=== PATIENT | male | born 1945 | race Caucasian/White ===

== ENCOUNTER → 2023-08-13 10:01 | Outpatient (REF) | payer BC, SELFPAY | LOC: RAD 10:01 | PROVIDERS: ATTENDING PHYSICIAN Family Medicine; FAMILY PHYSICIAN Family Medicine | DX: R07.81 Pleurodynia (principal); R50.9 Fever, unspecified | CPT/HCPCS: 71046 ==

== ENCOUNTER 2024-10-19 15:02 | Inpatient (IN) | payer OTHER, SELFPAY ==
[2024-10-19] VITALS (14 sets, daily range): BP systolic 93–127; BP diastolic 54–79; BMI 23.9; BMI 23.1
[2024-10-19 10:42] LABS: Hematocrit 32.9 % (39.0-52.0); Hemoglobin 11.5 g/dL (13.0-18.0); Mean Corp Hgb Conc. 35.0 g/dL (33.0-37.0); Mean Corpuscular Volume 86.1 fL (80.0-94.0); Platelet Count 156 10^3/uL (130-400); Red Cell Dist. Width 12.9 % (11.5-14.5)
[2024-10-19 11:10] LABS: ALT (SGPT) 23 U/L (0-50); AST (SGOT) 20 U/L (17-59); Albumin 3.1 g/dl (3.5-5.0); Alkaline Phosphatase 70 U/L (38-126); Blood Urea Nitrogen 17 mg/dl (9-20); Calcium 8.5 mg/dl (8.4-10.2); Carbon Dioxide 22 mmol/L (22-30); Chloride 107 mmol/L (98-107); Estimated Creatinine Clearance 47 ml/min; Glucose 119 mg/dl (70-99); Potassium 3.6 mmol/L (3.5-5.1); Sodium 135 mmol/L (135-145); Total Protein 6.0 g/dl (6.3-8.2); eGFR 55.53
--- NOTE | 2024-10-19 11:17 | ED.GENMED ---
History of Present Illness
General
Chief Complaint: Blood Pressure Problem
Source: patient
Exam Limitations: altered mental status
Time Seen by Provider: 10/19/24 10:29
Nursing documentation reviewed up to this point in time: agreed with
History of Present Illness
History of Present Illness:
79-year-old male with dementia presents with low blood pressure near syncope x 2 days being treated for a UTI apparently got Seroquel my evaluation blood pressure is a little bit soft he is sleepy but cooperative
12 noon, discussed with and daughter are his primary caregivers patient has advanced dementia, prior head injury has been falling a lot lately, concern for UTIs had 3 doses of Cipro they requested patient be admitted
Past History
Past History
ED Past Medical History: HTN and Other (Prior fall with head injury. Dementia)
ED Past Surgical History: Orthopedic and Other (Glaucoma surgery. Posttraumatic surgery)
Social History
Tobacco: Former smoker
Alcohol: None
Drug: None
Personal:
Living: with family
Employment: Retired
Family History
Family History: Other (Noncontributory)
Review of Systems
Review of Systems
Unable to obtain full review of systems at this time due to: dementia
All Other Systems: Not applicable
Phy Exam
Physical Exam
Physical Exam:
Physical Exam
General: Demented opens eyes to voice follows very simple commands
Neck: No jaundice lips are more
Heart: Regular
Lungs: no acute respiratory distress. clear bilaterally
Abdomen: Nontender
Neuro: Demented globally weak
Skin: no rash
Psychiatric: Flat affect
Extremities: no edema.
Course
Orders/Labs/Results
Orders:
Orders
10/19/24 10:34
EKG [Electrocardiogram (*1)] Urgent
Reason for Study: Syncope
10/19/24 10:35
EKG- Treatment ONCE
Complete Blood Count/No Diff Urgent
Comprehensive Metabolic Panel Urgent
10/19/24 11:55
Straight cath- Treatment ONCE
Urinalysis Reflex To Culture Urgent
Abnormal Lab Results
10/19/24
10:35
RBC 3.82 L 10^6/uL
(4.70-6.10)
Hgb 11.5 L g/dL
(13.0-18.0)
Hct 32.9 L %
(39.0-52.0)
Glucose 119 H mg/dl
(70-99)
Total Protein 6.0 L g/dl
(6.3-8.2)
Albumin 3.1 L g/dl
(3.5-5.0)
10/19/24 10:35
10/19/24 10:35
Vital Signs
Initial and Last Documented VS:
Initial Vital Signs
Temp Pulse Resp BP Pulse Ox
97.4 F 69 20 93/54 93
10/19/24 10:26 10/19/24 10:26 10/19/24 10:26 10/19/24 10:26 10/19/24 10:26
Last Documented Vital Signs
Temp Pulse Resp BP Pulse Ox
97.4 F 68 21 96/59 93
10/19/24 10:26 10/19/24 11:00 10/19/24 11:00 10/19/24 11:00 10/19/24 11:19
MDM/Problems Addressed
Differential Diagnosis Includes:
Infection medication effect UTI dementia
MDM/Problems Addressed:
Weakness
Chronic conditions affecting care: Neurological disorder and Psychiatric illness
Acute Exacerbation and/or Progression of Chronic Illness: Neurological disorder and Psychiatric illness
*Pulse Oximetry
SaO2: 93
Oxygen Mode of Delivery: Room air
Patient hypoxic: no
*Critical Care Note
Total Time (30-74mins, 75-104mins- exclusive of procedures): Not Applicable
ED Attending Note
-
Portions of this chart may have been created with voice recognition software.� Occasional wrong word or��sound alike� substitutions may have occurred due to the inherent limitations of voice recognition software.
Discharge Plan
Departure
Prescriptions:
No Action
quetiapine 25 mg tablet
25 mg PO HS
latanoprost 0.005 % drops
1 drp RIGHT EYE HS
lisinopril 10 mg tablet
10 mg PO DAILY
timolol maleate 0.5 % drops
1 drp RIGHT EYE BID
Besivance 0.6 % Drops,Suspension
1 drp RIGHT EYE TID
Prolensa 0.07 % Drops
1 drp RIGHT EYE DAILY@1200
Lotemax SM 0.38 % Drops,Gel
1 drp RIGHT EYE TID
Referrals:
Tomy Brumfield MD [Family Provider, Family Practice]
Interventions
Interventions:
*Risk Screen - Suicide Last Done: 10/19/24 10:26
*General Assessment Last Done: 10/19/24 10:26
*Neglect/Abuse Screening Last Done: 10/19/24 10:26
*ED- Fall Risk Assessment Last Done: 10/19/24 10:26
*ED COVID-19 Vaccine History Last Done: 10/19/24 10:26
ED- Cardiac Assessment Last Done: 10/19/24 11:05
ED- Pulmonary Assessment Last Done: 10/19/24 11:05
Discharge Date and Time
Print Language: KHMER
[2024-10-19] MEDS: NSS 1000 IV ×2 (12:15→21:53)
[2024-10-19 12:27] LABS: Urine Character Clear (Clear)
[2024-10-19 12:34] LABS: Urine Red Blood Cell 0-2 /HPF (0-2); Urine Squamous Cell 0-2 /LPF (Few)
--- NOTE | 2024-10-19 16:10 | HPS.HSE ---
Addendum entered and electronically signed by Mayda Santillan MD, Resident 10/26/24 14:54:
Allergies
Allergy/AdvReac Type Severity Reaction Status Date / Time
amoxicillin Allergy Rash/swelling, Verified 10/19/24 11:38
itching
Home Medications
lisinopril 10 mg tablet 10 mg PO DAILY Blood pressure 03/31/22
quetiapine 25 mg tablet 50 mg PO DAILY Mental Health/Anxiety 03/31/22
quetiapine 50 mg tablet (Seroquel) 75 mg PO BID@1200,2100 mental health 10/19/24
timolol maleate 0.5 % eye drops 1 drp RIGHT EYE DAILY Eye Condition 10/19/24
cefdinir 300 mg capsule 300 mg PO BID #6 caps 10/23/24
Addendum entered and electronically signed by Sushma Ronquillo MD 10/19/24 17:04:
I personally performed a history and physical exam of the patient and discussed management with the resident. I reviewed the resident's note and agree with the documented findings and plan of care HPI/CC.
GENERAL: well developed, well nourished, male in no apparent distress
HEENT: NC/AT
HEART: regular rate and rhythm, +S1, +S2
LUNGS : clear to auscultation bilaterally
ABDOM: soft, nontender, nondistended, + bowel sounds
EXT: no cyanosis, clubbing, or edema
NEUROLOGIC: grossly intact--apparent dementia
Altered mental status--likely from UTI (tested positive at home and started on Cipro)--worsening dementia or side effect from cipro also possible--doubt stroke as nonfocal neuro exam--stop cipro and start rocephin--await cultures although may be
negative since on abx
dementia with behaviors--daughter reports pt can become aggressive and combative--cont seroquel--PRN haldol--1:1--consider psych consult--daughter will not consider placement, will take him home when stable
Rash--On abdomen and back--unknown cause--itchy--start hydrocortisone
essential HTN--cont lisinopril
PT/OT/speech
DVT proph
code status--DNR
Original Note:
Family Physician
-
Family Physician: Tomy Brumfield
Chief Complaint
-
Altered mental status, urinary symptoms
History of Present Illness
Mr. Rob Marvin is a 79-year-old man who has a past medical history of Alzheimer's dementia hypertension TBI who was brought in by his family for altered mental status of 2 days. and daughter present, they report that at baseline he is
altered but became more altered couple of days ago. Family reports that he was unsteady with his gait and with urinate standing up instead of using the bathroom and that his urine was bright orange. Daughter used [id number] test strips to
assess whether he had a UTI which turned out positive. She called his PCP for a prescription and was given Cipro. After administration of Cipro he he started to have issues with balance and falling. This a.m. he was altered and having gait issues
causing him to buckle but not fall and did not hit his head. He was brought in by his family for this issue. He has a prior history of TBI that he recovered from completely and also has vasovagal episodes when he bears down to use the bathroom.
Family reports that he is constipated and goes about once every 2 weeks. They also report that he can get very agitated and hit his daughter. He is on Seroquel for agitation. Patient was pleasant at bedside, responding appropriately, but a little
bit cognitively slow. Family denies that he complained of chest pain shortness of breath nausea or vomiting. He does not complain of urinary issues but his urinary behaviors have changed. He has an at home nurse that comes 3 times a week for 4
hours to help him with his ADLs. In the ER CT head showed no change to prior. EKG was notable for Q waves in the inferior leads. UA showed positive leukoesterase occult blood few bacteria and 2+ albumin. altered mentation could be due to the UTI
Cipro or advancing dementia. Patient was admitted for UTI and altered mental status.
Medical History
Past Medical History
Past Medical History: Reports Other
Additional Past Medical History:
Dementia Alzheimer's type
Traumatic brain injury
Hypertension
Past Surgical History: Reports Orthopedic (Left knee replacement)
Social History
Unable to obtain full social history at this time due to: Dementia
Tobacco: Former Smoker
Alcohol: None
Drug: None
Personal:
Living: With Family
Employment: Not Employed
Family History
Family History: Not pertinent
Allergies / Home Medications
Allergies reflects when Allergies were last updated in [facility].
Home Medications with original date entered in [facility]
Allergy/Medication List:
Amoxicillin rash
Review of Systems
-
Unable to obtain full review of systems at this time due to: Dementia
History Source: Patient and Family
Constitutional: Reports No Symptoms; Denies Fever or Fatigue
EENT: Reports No Symptoms; Denies Sore Throat or Runny Nose
Respiratory: Reports No Symptoms; Denies Cough or Trouble Breathing
Cardiac: Reports No Symptoms; Denies Chest Pain, Diaphoresis or Palpitations
Abdomen/GI: Reports Constipated; Denies Abdominal Pain, Nausea or Vomiting
: Reports Flank Pain and Incontinence
Musculoskeletal: Reports No Symptoms
Neurological: Reports Weakness
Psych: Reports Dementia
Physical Exam
Vital Signs
Vital Signs
Temp Pulse Resp BP Pulse Ox
98.0 F 91 16 114/68 97
10/19/24 15:59 10/19/24 15:59 10/19/24 15:59 10/19/24 15:59 10/19/24 15:59
Physical Exam
General: Well Developed, Well Nourished, No Apparent Distress, Comfortable and Conversant (Minimally)
HEENT: NormoCephalic and Atraumatic
Respiratory: Clear; No Wheezes, Crackles or Non Labored Respirations
Cardiac: S1/S2 and Regular Rhythm
GI: Soft, Non Tender, Non Distended and Normal Bowel Sounds
Genito-urinary: No costovertebral tender
Musculoskeletal: No Clubbing
Skin: Warm and Dry
Neuro: No Motor Deficits, Nonfocal/grossly intact and No Sensory Deficits; No Oriented
Psych: Calm
Laboratory Results
-
10/19/24 10:35
10/19/24 10:35
Laboratory Results
Total Bilirubin 1.0 mg/dl (0.2-1.3) 10/19/24 10:35
AST 20 U/L (17-59) 10/19/24 10:35
ALT 23 U/L (0-50) 10/19/24 10:35
Alkaline Phosphatase 70 U/L (38-126) 10/19/24 10:35
Impression/Plan
-
IMPRESSION:
Mr. Rob Marvin is a 79-year-old man who has a past medical history of Alzheimer's dementia hypertension TBI who was brought in by his family for altered mental status of 2 days. and daughter present, they report that at baseline he is
altered but became more altered couple of days ago. Family suspected UTI and conducted a UTI test which turned out positive. She called his PCP for a prescription and was given Cipro. After administration of Cipro he he started to have issues with
balance and falling. In the ER CT head showed no change to prior. EKG was notable for Q waves in the inferior leads. UA showed positive leukoesterase occult blood few bacteria and 2+ albumin. altered mentation could be due to the UTI Cipro or
advancing dementia.
PLAN:
# Altered mental status
# UTI
# Dementia Alzheimer's type
Altered mental status may be due to progression of dementia
May also be due to underlying UTI
May also be due to side effects of Cipro
Switch patient from Cipro to Rocephin
Await cultures for sensitivity
Will consult PT OT speech
Continue home quetiapine
Haldol 0.5 as needed
# Rash
On abdomen and back
Reports its itchy
Hydrocortisone cream as needed
[2024-10-19] MEDS: STERILE WATER FOR INJECTION 10 ML IV (17:35)
[2024-10-19] MEDS: ROCEPHIN 1000 MG IV (17:35)
--- NOTE | 2024-10-19 18:05 | PTCARENOTE ---
Pt arrived to floor from ED via stretcher. Oriented to Rob, but cannot recall his last name. Unable to identify time or place. Denying pain. 1:1 observation maintained per order. Pleasant interactions. Occasionally with quickly sit up in bed and
state, 'I better be getting out of here. I need to find my .' Able to reorient of plan to stay in hospital. SaO2 97% on room air. Lungs clear. Regular rhythm. Firm abdomen. Hyperactive bowel sounds. Pt unable to recall last bowel movement. NSS
infusing @ 100ml/hr.
[2024-10-19] MEDS: HALDOL 0.5 MG IV (19:36)
--- NOTE | 2024-10-19 19:40 | PTCARENOTE ---
pt pulling at iv. trying to unplug things. getting angry wants to leave. says this is not his bed or home- multiple attempts to redirect unsuccessful. behaviors escalating- Haldol given. ekg orders placed for 10/20 and 10/21
[2024-10-19] MEDS: SEROQUEL 75 MG PO (20:14)
--- NOTE | 2024-10-20 06:17 | PTCARENOTE ---
pt has been cooperative and pleasant after Haldol. sleeps when left undisturbed but easily arousable ekg done
[2024-10-20] MEDS: NSS 1000 IV ×2 (06:52→16:32)
[2024-10-20] MEDS: ZESTRIL 10 MG PO (08:35)
[2024-10-20] MEDS: SEROQUEL 50 MG PO (08:42)
[2024-10-20 08:43] VITALS: BP 134/82
[2024-10-20] MEDS: TIMOPTIC 0.5% OPHTHALMIC SOLUTION 1 DROP RIGHT EYE (08:43)
--- NOTE | 2024-10-20 09:25 | PTOTSP ---
Speech Therapy
Presentation: Patient's speech and language appeared to be WNL during conversation. Of note, patient's voice appeared to be weak in quality but intelligible. Patient has Alzheimer's dementia which was likely a barrier to following directions/
commands and orientation.
Swallowing function: Patient was re-positioned to an upright position in bed. Patient was observed with several sips (straw) of thin liquids and bites of puree, mechanical soft and regular consistency solids in which patient appeared to tolerte all
presentations as he did not exhibit any overt clinical s/sx of aspiration. However, patient's confusion was likely a barrier to oral manipulation and mastication of harder solids (regular consistency) evidenced by prolonged oral holding and
mastication which patient eventually expelled portion of the presentation from the oral cavity.
SANFORIZING MACHINE OPERATOR observed RN administer medications whole (individually) with thin liquid in which patient seperated the bolus and held the pills on his tongue for ~3 minutes. Despite ample attempts to assist with thin liquid washes and puree presentations,
patient was unable to propel the pills posteriorly. The medication eventually dissolved and were swallowed.
Given the above information, patient's confusion was likely a barrier to his swallowing function. Recommend diet downgrade to IDDSI 5; minced and moist with thin liquids and full assistance/ supervision. Also, consider medications crushed in puree
if possible.
Recommendations:
1. Diet downgrade to IDDSI 5; minced and moist with thin liquids
2. Full assistance/ supervision with PO
3. Consider medications crushed in puree if possible
4. PO only when alert
Plan: SANFORIZING MACHINE OPERATOR will continue to follow to ensure tolerance and appropriate diet upgrade; pending hospitalization.
[2024-10-20 09:30] LABS: Hematocrit 35.3 % (39.0-52.0); Hemoglobin 12.0 g/dL (13.0-18.0); Mean Corp Hgb Conc. 34.0 g/dL (33.0-37.0); Mean Corpuscular Volume 87.6 fL (80.0-94.0); Platelet Count 184 10^3/uL (130-400); Red Cell Dist. Width 13.1 % (11.5-14.5)
[2024-10-20 09:52] LABS: Blood Urea Nitrogen 10 mg/dl (9-20); Calcium 8.6 mg/dl (8.4-10.2); Carbon Dioxide 22 mmol/L (22-30); Chloride 111 mmol/L (98-107); Estimated Creatinine Clearance 68 ml/min; Glucose 106 mg/dl (70-99); Potassium 3.8 mmol/L (3.5-5.1); Sodium 139 mmol/L (135-145); eGFR > 60.00
--- NOTE | 2024-10-20 11:18 | W.PN.HOSP.TC ---
Addendum entered and electronically signed by Sushma Ronquillo MD 10/20/24 15:33:
I saw and evaluated the patient independently. I reviewed the resident�s note and agree with findings and plan as documented by Dr. Santillan.
GENERAL: well developed, well nourished, male in no apparent distress
HEENT: NC/AT
HEART: regular rate and rhythm, +S1, +S2
LUNGS : clear to auscultation bilaterally
ABDOM: soft, nontender, nondistended, + bowel sounds
EXT: no cyanosis, clubbing, or edema
NEUROLOGIC: grossly intact--apparent dementia
SKIN: small rash on left side of abdomen
Altered mental status--likely from UTI (tested positive at home and started on Cipro) culture negative due to previous exposure of ABX--worsening dementia or side effect from cipro also possible--doubt stroke as nonfocal neuro exam--cont rocephin
dementia with behaviors--daughter reports pt can become aggressive and combative--cont seroquel--PRN haldol--1:1--consider psych consult--daughter will not consider placement, will take him home when stable
Rash--On abdomen and back--unknown cause--itchy--start hydrocortisone
essential HTN--cont lisinopril
PT/OT/speech
DVT proph
code status--DNR
possible d/c today or tomorrow
Original Note:
Today's Communication/Plan
-
Continue antibiotic treatment
Assessment / Plan
Assessment / Plan
Mr. Rob Mavrin is a 79-year-old man who has a past medical history of Alzheimer's dementia hypertension TBI who was brought in by his family for altered mental status of 2 days. and daughter present, they report that at baseline he is
altered but became more altered couple of days ago. Family suspected UTI and conducted a UTI test which turned out positive. She called his PCP for a prescription and was given Cipro. After administration of Cipro he he started to have issues with
balance and falling. In the ER CT head showed no change to prior. EKG was notable for Q waves in the inferior leads. UA showed positive leukoesterase occult blood few bacteria and 2+ albumin. altered mentation could be due to the UTI Cipro or
advancing dementia. Urine culture negative for growth.
# Altered mental status
# UTI
# Dementia Alzheimer's type
Altered mental status may be due to progression of dementia
May also be due to underlying UTI
May also be due to side effects of Cipro
Switch patient from Cipro to Rocephin
Await cultures for sensitivity
Will consult PT OT speech
Continue home quetiapine
Haldol 0.5 as needed
# Rash
On abdomen and back
Reports its itchy
Hydrocortisone cream as needed
DVT ppx
SCDs
CODE Status
DNR
Anticipated Discharge: Within 24 hours
Subjective/Interval History
-
Patient was in bed and pleasant. He was still very confused but had no issues overnight. He reported no pain anywhere. Called daughter and updated her. date of Service: October 20, 2024
Objective Data
-
Labs:
Laboratory Results
10/20/24
09:04
WBC 6.4
Hgb 12.0 L
Hct 35.3 L
Plt Count 184
Sodium 139
Potassium 3.8
Chloride 111 H
Carbon Dioxide 22
BUN 10
Creatinine 0.9
Glucose 106 H
Calcium 8.6
Vital Signs:
Vital Signs
Temp Pulse Resp BP Pulse Ox
98.1 F 53 18 134/82 96
10/20/24 08:43 10/20/24 08:43 10/20/24 08:43 10/20/24 08:43 10/20/24 08:43
I&O
10/19/24 10/20/24 10/21/24
06:59 06:59 06:59
Intake Total 1560 / 1560
Output Total 800 / 800
Balance 760 / 760
Review of Systems
-
Unable to obtain full review of systems at this time due to: Dementia
History Source: Patient
All other systems: Reviewed and negative
Constitutional: Reports No Symptoms; Denies Fever
Respiratory: Reports No Symptoms; Denies Cough or Trouble Breathing
Cardiac: Reports No Symptoms; Denies Chest Pain or Palpitations
Abdomen/GI: Reports No Symptoms; Denies Abdominal Pain, Nausea or Vomiting
Genitourinary: Reports No Symptoms
Musculoskeletal: Reports No Symptoms
Physical Exam
-
General: Well Developed, Well Nourished, No Apparent Distress and Comfortable
HEENT: Normocephalic and Atraumatic
Respiratory: Clear to Auscultation; Negative Wheezes or Crackles
Cardiac: Regular Rhythm and S1/S2; Negative Murmur
GI: Soft, Nontender and Nondistended
Musculoskeletal: No Cyanosis and No Edema
Skin: Warm and Dry
Neuro: Negative Oriented (patient oriented to self) or AO x 3
Psych: Calm and Confused; Negative Agitated
[2024-10-20] MEDS: SEROQUEL 75 MG PO ×2 (12:03→20:40)
--- NOTE | 2024-10-20 12:50 | CM ---
Patient seen at bedside on . Patient daughter and reviewed with CM living arrangements. Patient daughter stated that she and her mother were the primary caregivers for the father. Patient lives with her and mother in a one story home.
there are steps to the backyard and pool area but primary bedroom is one floor. Patient uses the [facility], daughter requested [facility] be primary pharmacy. Patient has helpers 3 days a week for 4 hours a day. Patient PCP
is Dr. Lui. Patient daughter and plan is for patient to go home with family and primary caregivers. CM will continue to follow for discharge needs.
Plan; home with [facility] if accepted/recommended vs home with no needs/aides as previously arranged.
[2024-10-20 13:11] VITALS: BP 153/88; BP 158/84; PULSE 68
[2024-10-20 13:25] VITALS: BP 153/88; PULSE 79; O2SAT 92
--- NOTE | 2024-10-20 15:26 | PTCARENOTE ---
patient very confused and attempt made to reorient patient but unsuccessful, poor Po intake, encouraged Po's. can be impulsive with attempts to transfer oob by self. 1:1 maintained, vss, will continue to monitor.
[2024-10-20 15:30] VITALS: BP 142/85
--- NOTE | 2024-10-20 16:23 | W.PN.UPDATE ---
Update Note
Progress Note Update
Talked with daughter on the phone for 10minutes . She reports that she was here earlier and her dad is not at baseline. He appeared more calm to her and still altered compared to his more active/agitated baseline. Informed her that he has been
stable and his urine cultures came back negative and he has been tolerating antibiotics well. Patient's daughter open to discharge tomorrow.
[2024-10-20] MEDS: STERILE WATER FOR INJECTION 10 ML IV (17:47)
[2024-10-20] MEDS: ROCEPHIN 1000 MG IV (17:47)
--- NOTE | 2024-10-20 18:25 | PTCARENOTE ---
pt ate some vanilla pudding
[2024-10-20 23:00] VITALS: BP 138/83
[2024-10-21] MEDS: NSS 1000 IV (02:58)
[2024-10-21 05:51] LABS: Hematocrit 35.6 % (39.0-52.0); Hemoglobin 12.2 g/dL (13.0-18.0); Mean Corp Hgb Conc. 34.3 g/dL (33.0-37.0); Mean Corpuscular Volume 86.6 fL (80.0-94.0); Platelet Count 205 10^3/uL (130-400); Red Cell Dist. Width 12.8 % (11.5-14.5)
[2024-10-21 06:13] LABS: Blood Urea Nitrogen 9 mg/dl (9-20); Calcium 8.6 mg/dl (8.4-10.2); Carbon Dioxide 21 mmol/L (22-30); Chloride 109 mmol/L (98-107); Estimated Creatinine Clearance 76 ml/min; Glucose 101 mg/dl (70-99); Potassium 4.2 mmol/L (3.5-5.1); Sodium 138 mmol/L (135-145); eGFR > 60.00
[2024-10-21 06:58] VITALS: BP 137/82
[2024-10-21 07:11] VITALS: BP 137/82
[2024-10-21] MEDS: ZESTRIL 10 MG PO (09:10)
[2024-10-21] MEDS: SEROQUEL 50 MG PO ×2 (09:10→21:46)
[2024-10-21] MEDS: TIMOPTIC 0.5% OPHTHALMIC SOLUTION 1 DROP RIGHT EYE (09:11)
--- NOTE | 2024-10-21 09:32 | W.PN.HOSP.TC ---
Addendum entered and electronically signed by Sushma Ronquillo MD 10/21/24 13:55:
I saw and evaluated the patient independently. I reviewed the resident�s note and agree with findings and plan as documented by Dr. Santillan.
GENERAL: well developed, well nourished, male in no apparent distress--sleepy
HEENT: NC/AT
HEART: regular rate and rhythm, +S1, +S2
LUNGS : clear to auscultation bilaterally
ABDOM: soft, nontender, nondistended, + bowel sounds
EXT: no cyanosis, clubbing, or edema
NEUROLOGIC: grossly intact--apparent dementia
SKIN: small rash on left side of abdomen
Altered mental status--likely from UTI (tested positive at home and started on Cipro) culture negative due to previous exposure of ABX--worsening dementia or side effect from cipro also possible--doubt stroke as nonfocal neuro exam, head CT
neg--cont rocephin
dementia with behaviors--daughter reports pt can become aggressive and combative--cont seroquel (would try to keep timing of dosing as close to home dosing as possible) --PRN haldol (hasn't had any since Tuesday)--d/c 1:1, d/c IVF--daughter will not
consider placement, will take him home when stable
Rash--On abdomen and back--unknown cause--itchy--start hydrocortisone
essential HTN--cont lisinopril
PT/OT/speech
DVT proph
code status--DNR
possible d/c today or tomorrow--daughter concerned he is too calm for d/c
Original Note:
Today's Communication/Plan
-
Spoke with daughter, patient medically stable for discharge
transition to PO antibiotics
Assessment / Plan
Assessment / Plan
Mr. Rob Marvin is a 79-year-old man who has a past medical history of Alzheimer's dementia hypertension TBI who was brought in by his family for altered mental status of 2 days. and daughter present, they report that at baseline he is
altered but became more altered couple of days ago. Family suspected UTI and conducted a UTI test which turned out positive. She called his PCP for a prescription and was given Cipro. After administration of Cipro he he started to have issues with
balance and falling. In the ER CT head showed no change to prior. EKG was notable for Q waves in the inferior leads. UA showed positive leukoesterase occult blood few bacteria and 2+ albumin. altered mentation could be due to the UTI Cipro or
advancing dementia. Urine culture negative for growth.
# Altered mental status
# UTI
# Dementia Alzheimer's type
Altered mental status may be due to progression of dementia
May also be due to underlying UTI
May also be due to side effects of Cipro
Switch patient from Cipro to Rocephin
Urine culture is negative
consult PT OT speech
Continue home quetiapine
Haldol 0.5 as needed
Transition IV antibiotics to oral finish 7-day course
Keflex 500mg BID
# Rash
On abdomen and back
Reports its itchy
Hydrocortisone cream as needed
DVT ppx
SCDs
CODE Status
DNR
Anticipated Discharge: Today
Subjective/Interval History
-
Patient was in bed sleepy. He was still very confused but had no issues overnight. He reported no pain anywhere. Date of Service: October 21, 2024
Objective Data
-
Labs:
Laboratory Results
10/21/24
05:06
WBC 6.9
Hgb 12.2 L
Hct 35.6 L
Plt Count 205
Sodium 138
Potassium 4.2
Chloride 109 H
Carbon Dioxide 21 L
BUN 9
Creatinine 0.8
Glucose 101 H
Calcium 8.6
Vital Signs:
Vital Signs
Temp Pulse Resp BP Pulse Ox
98.2 F 99 20 137/82 96
10/21/24 07:11 10/21/24 09:10 10/21/24 07:11 10/21/24 09:10 10/21/24 07:11
I&O
10/20/24 10/21/24 10/22/24
06:59 06:59 06:59
Intake Total 1560 / 1560 850 / 850
Output Total 800 / 800 900 / 900
Balance 760 / 760 -50 / -50
Review of Systems
-
Unable to obtain full review of systems at this time due to: Dementia
History Source: Patient
All other systems: Reviewed and negative
Constitutional: Reports No Symptoms; Denies Fever
EENT: Reports No Symptoms Reported; Denies Sore Throat
Respiratory: Reports No Symptoms; Denies Cough or Trouble Breathing
Cardiac: Reports No Symptoms; Denies Chest Pain or Palpitations
Abdomen/GI: Reports No Symptoms; Denies Abdominal Pain, Nausea, Vomiting or Diarrhea
Genitourinary: Denies No Symptoms or Dysuria
Musculoskeletal: Reports No Symptoms
Skin: Reports No Symptoms
Physical Exam
-
General: Well Developed, Well Nourished, No Apparent Distress and Comfortable
HEENT: Normocephalic and Atraumatic
Respiratory: Clear to Auscultation; Negative Wheezes or Crackles
Cardiac: Regular Rhythm and S1/S2; Negative Murmur
GI: Soft, Nontender, Nondistended and Normal Bowel Sounds
Musculoskeletal: No Clubbing, No Cyanosis and No Edema
Skin: Warm and Dry
Neuro: Awake and Alert; Negative Oriented
Psych: Calm and Confused; Negative Agitated
--- NOTE | 2024-10-21 12:30 | CM ---
CM following re: discharge planning.
Reviewed pt's chart, met with pt and spoke to pt's daughter Esperanza over the phone.
Discharge order noted. pt's daughter is aware, expressed her agreement with discharge and she stated she is coming top transport pt home.
IMM reviewed, placed on chart, pt has a copy.
PT and OT evaluations noted. Pt's daughter is aware, expressed er agreement. [facility]N choice provided, daughter preferred [facility]. A referral to [facility] made.
Please fax discharge instructions to [facility] at [phone]
D/C plan: home with [facility] and family support. Daughter Esperanza to transport.
[2024-10-21] MEDS: SEROQUEL PO (13:53)
[2024-10-21 15:00] VITALS: BP 127/69
[2024-10-21] MEDS: ROCEPHIN 1000 MG IV (17:08)
[2024-10-21] MEDS: STERILE WATER FOR INJECTION 10 ML IV (17:08)
--- NOTE | 2024-10-21 17:47 | W.PN.UPDATE ---
Update Note
Progress Note Update
Discussed patient's condition with daughter at bedside. She states that he is to somnolent and nonresponsive compared to baseline. Somnolence may be due to dose of Seroquel that patient received at 9 AM. Patient's home schedule of Seroquel is at
8 AM 12 PM and 10 PM. Patient was responsive when asked questions but could not follow commands. Daughter is concerned for her ability to safely supervise him and is worried that he might fall. She is open to placement in rehab if an appropriate
candidate. DC was planned for today but will be reevaluated for DC tomorrow. Informed daughter that patient is medically stable with no acute medical needs. He has been very calm and cooperative during his stay. Informed her that keeping him
hospitalized for longer without acute needs can be harmful but understand her apprehension. PT has already assessed him and they think he requires 24/7 supervision due to cognitive status and fall risk. Recommended home health services for
functional training due to daughter's initial request to have him return home. Will reach out to PT to see if he is a good rehab candidate.
--- NOTE | 2024-10-21 18:20 | PTCARENOTE ---
Family requested IVF, MD and resident made aware, new order provided, see MAR.
[2024-10-21] MEDS: D5/0.9% SODIUM CHLORIDE 1000 IV (18:29)
[2024-10-21 23:00] VITALS: BP 142/84
[2024-10-22 03:31] VITALS: BMI 23.5
[2024-10-22] MEDS: D5/0.9% SODIUM CHLORIDE 1000 IV ×2 (04:26→14:46)
[2024-10-22 07:38] VITALS: BP 152/93
[2024-10-22 07:48] LABS: Hematocrit 36.3 % (39.0-52.0); Hemoglobin 12.6 g/dL (13.0-18.0); Mean Corp Hgb Conc. 34.7 g/dL (33.0-37.0); Mean Corpuscular Volume 85.8 fL (80.0-94.0); Platelet Count 218 10^3/uL (130-400); Red Cell Dist. Width 12.8 % (11.5-14.5)
[2024-10-22 08:27] LABS: Blood Urea Nitrogen 9 mg/dl (9-20); Calcium 8.7 mg/dl (8.4-10.2); Carbon Dioxide 23 mmol/L (22-30); Chloride 110 mmol/L (98-107); Estimated Creatinine Clearance 76 ml/min; Glucose 128 mg/dl (70-99); Potassium 3.5 mmol/L (3.5-5.1); Sodium 138 mmol/L (135-145); eGFR > 60.00
--- NOTE | 2024-10-22 09:16 | W.PN.HOSP.TC ---
Addendum entered and electronically signed by Rob Aguilar DO 10/22/24 14:19:
CDI: OWEN present on arrival
Original Note:
Today's Communication/Plan
-
Seroquel dose reduced in half
9 AM dose held because patient was too somnolent yesterday around 12, needs to work with OT PT
Talked with family about placement, family amenable
Awaiting placement, medically stable for discharge
Assessment / Plan
Assessment / Plan
Mr. Rob Marvin is a 79-year-old man who has a past medical history of Alzheimer's dementia hypertension TBI who was brought in by his family for altered mental status of 2 days. and daughter present, they report that at baseline he is
altered but became more altered couple of days ago. Family suspected UTI and conducted a UTI test which turned out positive. She called his PCP for a prescription and was given Cipro. After administration of Cipro he he started to have issues with
balance and falling. In the ER CT head showed no change to prior. EKG was notable for Q waves in the inferior leads. UA showed positive leukoesterase occult blood few bacteria and 2+ albumin. altered mentation could be due to the UTI Cipro or
advancing dementia. Urine culture negative for growth. Patient was started on ceftriaxone and given IV fluids. Patient was evaluated by PT OT and speech which recommended a change in diet due to concerns for aspiration. PT recommending 08/11
supervision due to cognitive status. Patient was due to be discharged on 10/21 but was too somnolent in bed after receiving dose of Seroquel earlier in the morning. Talked with daughter and who are open to DC to rehab to help him with balance
issues if appropriate. Reached out to mental health case manager for possible rehab placement. Reduced Seroquel dose by half and patient was more alert and able to follow commands.
# Altered mental status
# UTI
# Dementia Alzheimer's type
Altered mental status may be due to progression of dementia
May also be due to underlying UTI
May also be due to side effects of Cipro
Switch patient from Cipro to Rocephin
Urine culture is negative
consult PT OT speech
Continue home quetiapine 3 times daily
Seroquel dose reduced in half.
Haldol 0.5 as needed
Transition IV antibiotics to oral finish 7-day course
Keflex 500mg BID at discharge
# Rash
On abdomen and back
Reports its itchy
Hydrocortisone cream as needed
DVT ppx
SCDs
CODE Status
DNR
Anticipated Discharge: Today
Subjective/Interval History
-
Patient was seen at bedside. He was more conversant and cooperative today after decreasing his night Seroquel. Yesterday he was somnolent in the afternoon when family came for discharge. Today he was more talkative told me about his breakfast and
was able to state that he had no pain and no concerns. Talked with family at bedside who reports that he is doing much better, they saw him work with PT and were impressed. They are happy about placement. Discussed reduction of seroquel with them.
Date of Service: October 22, 2024
Objective Data
-
Labs:
Laboratory Results
10/22/24
07:12
WBC 5.9
Hgb 12.6 L
Hct 36.3 L
Plt Count 218
Sodium 138
Potassium 3.5
Chloride 110 H
Carbon Dioxide 23
BUN 9
Creatinine 0.8
Glucose 128 H
Calcium 8.7
Vital Signs:
Vital Signs
Temp Pulse Resp BP Pulse Ox
98.2 F 91 14 152/93 95
10/21/24 23:00 10/22/24 07:38 10/22/24 07:38 10/22/24 07:38 10/21/24 23:00
I&O
10/21/24 10/22/24 10/23/24
06:59 06:59 06:59
Intake Total 850 / 850 1440 / 1440
Output Total 900 / 900 1250 / 1250
Balance -50 / -50 190 / 190
Review of Systems
-
Unable to obtain full review of systems at this time due to: Dementia
History Source: Patient
All other systems: Reviewed and negative
Constitutional: Reports No Symptoms; Denies Fever or Fatigue
EENT: Reports No Symptoms Reported; Denies Sore Throat
Respiratory: Reports No Symptoms; Denies Cough or Trouble Breathing
Cardiac: Reports No Symptoms; Denies Chest Pain or Palpitations
Abdomen/GI: Reports No Symptoms; Denies Abdominal Pain, Nausea, Vomiting or Diarrhea
Genitourinary: Reports No Symptoms; Denies Dysuria
Musculoskeletal: Reports No Symptoms; Denies Joint Pain
Skin: Reports No Symptoms; Denies Rash
Neuro: Reports No Symptoms; Denies Dizzy or Headache
Physical Exam
-
General: Well Developed, Well Nourished, No Apparent Distress and Comfortable
HEENT: Normocephalic and Atraumatic
Respiratory: Clear to Auscultation; Negative Wheezes or Crackles
Cardiac: Regular Rhythm and S1/S2; Negative Murmur
GI: Soft, Nontender, Nondistended and Normal Bowel Sounds
Musculoskeletal: No Edema and Clubbing
Skin: Warm and Dry
Neuro: Awake, Alert and No Motor Deficits; Negative Oriented or Slurred Speech
Psych: Calm and Confused; Negative Agitated
[2024-10-22 09:30] VITALS: BP 115/79; BP 140/92; PULSE 97
[2024-10-22] MEDS: ZESTRIL 10 MG PO (10:01)
[2024-10-22] MEDS: TIMOPTIC 0.5% OPHTHALMIC SOLUTION 1 DROP RIGHT EYE (10:01)
[2024-10-22 11:25] VITALS: BP 128/77; PULSE 82
[2024-10-22] MEDS: SEROQUEL 50 MG PO ×2 (12:21→21:16)
--- NOTE | 2024-10-22 14:09 | PN.CDI ---
CDI
- -
CDI:
Physician Documentation Request
Admit Date: 10/19/24 15:02
Dear Doctor Jeff/Resident,
Please review the following and provide your response in the progress notes.
Clinical Indicators:
Pt admitted with UTI/Metabolic encephalopathy/Dementia with possible progression
Renal functions are as below/ Pt did get IVFs
10/19/24 10/20/24 10/21/24
10:35 09:04 05:06
Creatinine 1.3 0.9 0.8
10/22/24
07:12
Creatinine 0.8
Clarify which of the following accurately represents the patient's renal status:
OWEN
Abnormal lab value
Other ( please specify)
Criteria for OWEN*
1 Increase in serum creatinine by > or = to 0.3 mg/dL (> or = to 26.5 micromol/L) within 48 hours, OR
2 Increase in serum creatinine to > or = to 1.5 times baseline, which is known or presumed to have occurred within 7 days, OR
3 Urine volume < 0.5 nL/kg/hour for six hours
Use of terms such as suspected, likely, concern for, or probable (associated with a specific diagnosis that is being evaluated, monitored, or treated as if it exists) are acceptable and can be coded in the inpatient setting, when documented at the
time of discharge.
Thank you,
Saima Kruger RN
CDI Specialist
[facility] [employer]
Please use your independent medical judgment in providing your response.
*Source: Kidney Disease: Improving Global Outcomes (KDIGO) 2012
--- NOTE | 2024-10-22 14:17 | CM ---
Addendum entered by Gudelia Parrish 10/22/24 17:24:
Marylu from ins called with approval for [facility]
APPROVAL REF #: [id number]
Start date 10/23/24
NRD 10/29/24 call for verbal review at [phone]
Left message with Keli at [facility] with approval information
Left message with daughter Esperanza
tt hospitalist
PLAN: [facility] 10/23/24
Report #: [phone]
Fax #: [phone]
Addendum entered by Gudelia Parrish 10/22/24 14:48:
Spoke with Marylu at [phone]
start date for tomorrow 10/23
PENDING reference #:[id number]
Marylu states this will go to [employer] & will get back to CM once approved for [facility]
PLAN: [facility], Pending insurance approval
Report #: [id number]
Fax #: [phone]
Original Note:
PT/OT rec SNF
updated daughter Esperanza
Referral sent to [facility] per daughter preference
Keli at [facility] able to accept patient tomorrow 10/23
CM to initiate ins auth [id number]
[facility] NPI #: [id number]
DR. BARBIE ANDERSON NPI #: [id number]
PLAN: [facility], once auth approved
--- NOTE | 2024-10-22 15:35 | PTOTSP ---
Speech Language Pathology
Pt seen for dysphagia tx. Sleeping upon arrival, but easily roused. Lunch tray at bedside untouched. Breakfast tray on windowsill, minimal consumed. P.O. trials of pureed pears, cookie brought from home, and thin liquids provided. Cognition is
main barrier in P.O. intake. Pt intermittently able to utilize straw when C[employer]OA MILL OPERATOR provided liquids in this manner. Increased success in acceptance when pt held cup on his own for sips. When COCOA MILL OPERATOR provided tsp of pureed pears, minimal acceptance with pt
initially attempting to spit out, thinking a mistake was made. Able to swallow with verbal cueing without difficulty. Provided cookie, and pt able to self-feed, taking bite with adequate mastication, bolus formation, and A-P transit. No
significant oral residue or any signs of aspiration noted.
Suspect food that looks more natural (regular solids vs pureed/minced solids) and that pt is able to feed self (such as finger foods) would be more successful and result in increased P.O. intake.
Recommend:
(1) Regular solids/thin liquids
(2) Aspiration precautions: full supervision, slow rate, ensure oral cavity clear post P.O. intake
(3) Meds as tolerated (barrier will be cognition)
(4) C[employer] MILL OPERATOR to continue to follow
[2024-10-22 15:59] VITALS: BP 147/87
[2024-10-22] MEDS: ROCEPHIN 1000 MG IV (17:57)
[2024-10-22] MEDS: STERILE WATER FOR INJECTION 10 ML IV (17:57)
[2024-10-22 23:00] VITALS: BP 114/78
[2024-10-23] MEDS: D5/0.9% SODIUM CHLORIDE 1000 IV (02:29)
[2024-10-23 06:00] VITALS: BMI 24.2
[2024-10-23 07:18] VITALS: BP 121/77
[2024-10-23] MEDS: TIMOPTIC 0.5% OPHTHALMIC SOLUTION 1 DROP RIGHT EYE (07:56)
[2024-10-23] MEDS: ZESTRIL 10 MG PO (07:56)
--- NOTE | 2024-10-23 08:42 | W.PN.HOSP.TC ---
Today's Communication/Plan
-
Patient medically stable for discharge
Assessment / Plan
Assessment / Plan
Mr. Rob Marvin is a 79-year-old man who has a past medical history of Alzheimer's dementia hypertension TBI who was brought in by his family for altered mental status of 2 days. and daughter present, they report that at baseline he is
altered but became more altered couple of days ago. Family suspected UTI and conducted a UTI test which turned out positive. She called his PCP for a prescription and was given Cipro. After administration of Cipro he he started to have issues with
balance and falling. In the ER CT head showed no change to prior. EKG was notable for Q waves in the inferior leads. UA showed positive leukoesterase occult blood few bacteria and 2+ albumin. altered mentation could be due to the UTI Cipro or
advancing dementia. Urine culture negative for growth. Patient was started on ceftriaxone and given IV fluids. Patient was evaluated by PT OT and speech which recommended a change in diet due to concerns for aspiration. PT recommending 08/11
supervision due to cognitive status. Patient was due to be discharged on 10/21 but was too somnolent in bed after receiving dose of Seroquel earlier in the morning. Talked with daughter and who are open to DC to rehab to help him with balance
issues if appropriate. Reached out to case maker for possible rehab placement. Reduced Seroquel dose by half and patient was more alert and able to follow commands. Patient medically stable for discharge to rehab.
# Altered mental status
# UTI
# Dementia Alzheimer's type
Altered mental status may be due to progression of dementia
May also be due to underlying UTI
May also be due to side effects of Cipro
Switch patient from Cipro to Rocephin
Urine culture is negative
consult PT OT speech
Continue home quetiapine 3 times daily
Seroquel dose reduced in half.
Haldol 0.5 as needed
Transition IV antibiotics to oral finish 7-day course
Keflex 500mg BID at discharge
# Rash
On abdomen and back
Reports its itchy
Hydrocortisone cream as needed
# OWEN
Previous baseline per [facility] records around 1.1
On admission creatinine 1.3 after IV fluids down trended to 0.8
DVT ppx
SCDs
CODE Status
DNR
Anticipated Discharge: Today
Subjective/Interval History
-
Patient was doing well this morning, he was awake and alert. He stated that he had no complaints, no pain urination, no chest pain, no headache, no shortness of breath. Spoke with daughter yesterday and updated her about [facility], patient was
accepted and will be discharged today. Date of Service: October 23, 2024
Objective Data
-
Vital Signs:
Vital Signs
Temp Pulse Resp BP Pulse Ox
98.4 F 77 16 121/77 96
10/23/24 07:18 10/23/24 07:56 10/23/24 07:18 10/23/24 07:56 10/23/24 07:18
I&O
10/22/24 10/23/24 10/24/24
06:59 06:59 06:59
Intake Total 1440 / 1440 1440 / 1440
Output Total 1250 / 1250 1200 / 1200
Balance 190 / 190 240 / 240
Review of Systems
-
Unable to obtain full review of systems at this time due to: Dementia
History Source: Patient
All other systems: Reviewed and negative
Constitutional: Reports No Symptoms; Denies Fever
Respiratory: Reports No Symptoms; Denies Cough or Trouble Breathing
Cardiac: Reports No Symptoms; Denies Chest Pain or Palpitations
Abdomen/GI: Reports No Symptoms; Denies Abdominal Pain, Nausea, Vomiting or Diarrhea
Genitourinary: Denies Dysuria or Flank Pain
Musculoskeletal: Reports No Symptoms
Physical Exam
-
General: Well Developed, Well Nourished, No Apparent Distress and Comfortable
HEENT: Normocephalic and Atraumatic
Respiratory: Clear to Auscultation; Negative Wheezes or Crackles
Cardiac: Regular Rhythm and S1/S2; Negative Murmur or Rub
GI: Soft, Nontender, Nondistended and Normal Bowel Sounds
Musculoskeletal: No Cyanosis, No Edema and Clubbing
Skin: Warm and Dry
Neuro: Awake and Alert
Psych: Calm and Confused
--- NOTE | 2024-10-23 10:22 | PTCARENOTE ---
pt bladder scanned @ 437mL, Dr. Aguilar notified, new order to place black catheter obtained. 16F black placed with no issues. dark orange urine draining. pt resting comfortably and tolerated procedure well.
--- NOTE | 2024-10-23 11:11 | CM ---
Addendum entered by Gudelia Parrish 10/23/24 11:16:
IMM reveiwed with daughter Esperanza & in chart
Original Note:
Patient approved for [facility] today
Notified Keli at [facility] & time of transport 1430
APPROVAL REF #: [id number]
Start date 10/23/24
NRD 10/29/24 call for verbal review at [phone]
Keli has all insurance information
PLAN: [facility] 10/23/24
Report #: [phone]
Fax #: [phone]
transport forms on chart, 1430 transport
[2024-10-23] MEDS: SEROQUEL 50 MG PO (11:59)
--- NOTE | 2024-10-23 12:46 | W.DCSUMMARY ---
Documented by User: Mayda Santillan MD, Resident 10/23/24 15:11
Discharge Summary
Discharge Data
Date of Admission: 10/19/24
Date of Discharge: 10/23/24
-
Pending Results: No
Hospital Course
Discharging Physician : Dr. Jeff Dr, Garba
Disposition : SNF
Primary care physician : Tomy Brumfield
Principal Discharge diagnosis :
Altered mental status, multifactorial, UTI and medication induced
Chronic Discharge diagnosis :
Dementia, Alzheimer's type
Hypertension
Traumatic brain injury
Hospital Course :
Mr. Rob Marvin is a 79-year-old man who has a past medical history of Alzheimer's dementia hypertension TBI who was brought in by his family for altered mental status of 2 days. and daughter present, they report that at baseline he is
altered but became more altered couple of days ago. Family suspected UTI and conducted a UTI test which turned out positive. She called his PCP for a prescription and was given Cipro. After administration of Cipro he he started to have issues with
balance and falling. In the ER CT head showed no change to prior. EKG was notable for Q waves in the inferior leads. UA showed positive leukoesterase occult blood few bacteria and 2+ albumin. altered mentation could be due to the UTI Cipro or
advancing dementia. Urine culture negative for growth. Creatinine on presentation was 1.3. Patient was started on ceftriaxone and given IV fluids. Patient was evaluated by PT OT and speech which recommended a change in diet due to concerns for
aspiration. PT recommending 24/7 supervision due to cognitive status. Patient can benefit from rehab but daughter wants him to return home. Patient was due to be discharged on 10/21 but was too somnolent in bed after receiving dose of Seroquel
earlier in the morning. Talked with daughter and who are open to DC to rehab to help him with balance issues if appropriate. Reached out to case assembler for possible rehab placement. Reduced Seroquel dose by half and patient was more alert
and able to follow commands. Prior to discharge patient developed urinary retention, Zamora was placed, to follow-up outpatient with urology for Zamora removal. On discharge patient's creatinine was 0.8, rest of labs stable. Patient was transition
to oral antibiotics, cefdinir. Patient medically stable for discharge to rehab.
Important imaging findings :
CT head 10/19
IMPRESSION:
No evidence of acute intracranial abnormality.
Focal areas of encephalomalacia as described. Mild to moderate atrophy.
Procedure findings :
EKG 10/19
SINUS RHYTHM WITH FUSION COMPLEXES
LEFT AXIS DEVIATION
POSSIBLE ANTERIOR INFARCT , AGE UNDETERMINED
ABNORMAL ECG
WHEN COMPARED WITH ECG OF 20-MAR-2023 20:56,
FUSION COMPLEXES ARE NOW PRESENT
EKG 7/
SINUS RHYTHM WITH PREMATURE VENTRICULAR COMPLEXES OR FUSION COMPLEXES
LEFT AXIS DEVIATION
INFERIOR INFARCT , AGE UNDETERMINED
ABNORMAL ECG
WHEN COMPARED WITH ECG OF 19-OCT-2024 10:43,
PREMATURE VENTRICULAR COMPLEXES ARE NOW PRESENT
EKG 7/
SINUS RHYTHM WITH PREMATURE SUPRAVENTRICULAR COMPLEXES AND WITH FREQUENT , AND
CONSECUTIVE PREMATURE VENTRICULAR COMPLEXES
LEFT AXIS DEVIATION
LOW VOLTAGE QRS
INFERIOR INFARCT (CITED ON OR BEFORE 20-APR-2019)
ABNORMAL ECG
WHEN COMPARED WITH ECG OF 20-OCT-2024 04:05,
MORE FREQUENT PREMATURE VENTRICULAR COMPLEXES ARE NOW PRESENT
Discharge Plan
-
Patient Disposition: [facility]/SNF
Discharge Diagnosis/Procedures: Altered mental status multifactorial, UTI, urine retention
Condition: Good
Diet: As tolerated
Activity: With assistance and As tolerated
Driving Restrictions: As prior to admission
Bathing Restrictions: None
Referrals:
Tomy Brumfield MD [Family Provider, Family Practice] - in less than 1 week
Richmond Bolden MD [Active, Urology]
Referral Note: pt with urinary retention, indwelling cath, void trial
Prescriptions:
New
cefdinir 300 mg capsule
300 mg PO BID Qty: 6 0RF
Continued
quetiapine 25 mg tablet
50 mg PO DAILY
lisinopril 10 mg tablet
10 mg PO DAILY
quetiapine [Seroquel] 50 mg Tablet
75 mg PO BID@1200,2100
timolol maleate 0.5 % Drops
1 drp RIGHT EYE DAILY
Discontinued
ciprofloxacin HCl 500 mg Tablet
500 mg PO BID
Rx Instructions:
for 7 days starting 10/17/24
Discharge Orders:
Discharge Patient (As Directed); Ordered 10/23/24
Ordered By: Mayda Santillan
Discharge Date and Time
Discharge Date/Time: 10/23/24 15:44
Print Language: HONG KONGER

Documented by User: Rob Aguilar DO 10/23/24 17:09
Discharge Summary
Discharge Data
Date of Admission: 10/19/24
Date of Discharge: 10/23/24
Total time spent discharging patient (in min): 35
Discharge Plan
-
Patient Disposition: [facility]/SNF
Discharge Diagnosis/Procedures: Altered mental status multifactorial, UTI, urine retention
Condition: Good
Diet: As tolerated
Activity: With assistance and As tolerated
Driving Restrictions: As prior to admission
Bathing Restrictions: None
Referrals:
Tomy Brumfield MD [Family Provider, Family Practice] - in less than 1 week
Richmond Bolden MD [Active, Urology]
Referral Note: pt with urinary retention, indwelling cath, void trial
Prescriptions:
New
cefdinir 300 mg capsule
300 mg PO BID Qty: 6 0RF
Continued
quetiapine 25 mg tablet
50 mg PO DAILY
lisinopril 10 mg tablet
10 mg PO DAILY
quetiapine [Seroquel] 50 mg Tablet
75 mg PO BID@1200,2100
timolol maleate 0.5 % Drops
1 drp RIGHT EYE DAILY
Discontinued
ciprofloxacin HCl 500 mg Tablet
500 mg PO BID
Rx Instructions:
for 7 days starting 10/17/24
Discharge Orders:
Discharge Patient (As Directed); Ordered 10/23/24
Ordered By: Mayda Santillan
Discharge Date and Time
Discharge Date/Time: 10/23/24 15:44
Print Language: HONG KONGER
[2024-10-23 15:25] VITALS: BP 151/93
== END 2024-10-23 15:44 | DRG 689 ==
LOC: 3 WEST ACU 15:02
PROVIDERS: Student in an Organized Health Care Education/Training Program; ADMITTING PHYSICIAN Internal Medicine; ATTENDING PHYSICIAN Internal Medicine; EMERGENCY PHYSICIAN Emergency Medicine; FAMILY PHYSICIAN Family Medicine
DX: N39.0 Urinary tract infection, site not specified (principal); G93.41 Metabolic encephalopathy; F02.811 Dementia in other diseases classified elsewhere, unspecified severity, with agitation; F02.818 Dementia in other diseases classified elsewhere, unspecified severity, with other behavioral disturbance; N17.9 Acute kidney failure, unspecified; G30.9 Alzheimer's disease, unspecified; I10 Essential (primary) hypertension; Z87.820 Personal history of traumatic brain injury; Z66 Do not resuscitate; Z96.652 Presence of left artificial knee joint; Z87.891 Personal history of nicotine dependence; Z88.0 Allergy status to penicillin; G93.89 Other specified disorders of brain; I49.1 Atrial premature depolarization; I49.3 Ventricular premature depolarization; K59.00 Constipation, unspecified; Z87.828 Personal history of other (healed) physical injury and trauma
CPT/HCPCS: 51701; 70450; 80048; 80053; 81003; 81015; 85027; 87086; 92526; 92610; 93005; 96360; 96361; 97116; 97162; 97166; 99284

== ENCOUNTER → 2024-10-26 10:17 | Outpatient (REF) | payer BC, OTHER, SELFPAY ==
[2024-10-26 11:26] LABS: Hematocrit 32.7 % (39.0-52.0); Hemoglobin 11.2 g/dL (13.0-18.0); Mean Corp Hgb Conc. 34.3 g/dL (33.0-37.0); Mean Corpuscular Volume 85.2 fL (80.0-94.0); Nucleated Red Blood Cells % 0 % (-); Platelet Count 221 10^3/uL (130-400); Red Cell Dist. Width 12.5 % (11.5-14.5)
[2024-10-26 11:40] LABS: Blood Urea Nitrogen 12 mg/dl (9-20); Calcium 8.0 mg/dl (8.4-10.2); Carbon Dioxide 24 mmol/L (22-30); Chloride 109 mmol/L (98-107); Glucose 82 mg/dl (70-99); Potassium 3.6 mmol/L (3.5-5.1); Sodium 137 mmol/L (135-145); eGFR > 60.00
== END ==
LOC: OLABP 10:17
PROVIDERS: ATTENDING PHYSICIAN Family Medicine
DX: G93.41 Metabolic encephalopathy (principal); N39.0 Urinary tract infection, site not specified; F03.911 Unspecified dementia, unspecified severity, with agitation; N17.9 Acute kidney failure, unspecified
CPT/HCPCS: 36415; 80048; 85025

== ENCOUNTER → 2024-10-30 11:46 | Outpatient (REF) | payer BC, OTHER, SELFPAY ==
[2024-10-30 12:34] LABS: Hematocrit 33.2 % (39.0-52.0); Hemoglobin 11.2 g/dL (13.0-18.0); Mean Corp Hgb Conc. 33.7 g/dL (33.0-37.0); Mean Corpuscular Volume 86.0 fL (80.0-94.0); Nucleated Red Blood Cells % 0 % (-); Platelet Count 273 10^3/uL (130-400); Red Cell Dist. Width 12.8 % (11.5-14.5)
== END ==
LOC: OLABP 11:46
PROVIDERS: ATTENDING PHYSICIAN Family Medicine
DX: G93.41 Metabolic encephalopathy (principal); N39.0 Urinary tract infection, site not specified; F03.911 Unspecified dementia, unspecified severity, with agitation; N17.9 Acute kidney failure, unspecified
CPT/HCPCS: 36415; 85025

== ENCOUNTER → 2024-11-02 10:41 | Outpatient (REF) | payer BC, OTHER, SELFPAY ==
[2024-11-02 11:13] LABS: Blood Urea Nitrogen 11 mg/dl (9-20); Calcium 8.9 mg/dl (8.4-10.2); Carbon Dioxide 27 mmol/L (22-30); Chloride 109 mmol/L (98-107); Glucose 80 mg/dl (70-99); Potassium 4.3 mmol/L (3.5-5.1); Sodium 138 mmol/L (135-145); eGFR > 60.00
== END ==
LOC: OLABP 10:41
PROVIDERS: ATTENDING PHYSICIAN Family Medicine
DX: G93.41 Metabolic encephalopathy (principal); N39.0 Urinary tract infection, site not specified; F03.911 Unspecified dementia, unspecified severity, with agitation; N17.9 Acute kidney failure, unspecified
CPT/HCPCS: 36415; 80048

== ENCOUNTER 2024-11-12 16:01 | Emergency (ER) | payer OTHER, SELFPAY ==
[2024-11-12] VITALS (10 sets, daily range): BP systolic 116–132; BP diastolic 65–83; PULSE 87–95
[2024-11-12 16:36] LABS: Hematocrit 39.7 % (39.0-52.0); Hemoglobin 13.4 g/dL (13.0-18.0); Mean Corp Hgb Conc. 33.8 g/dL (33.0-37.0); Mean Corpuscular Volume 85.7 fL (80.0-94.0); Nucleated Red Blood Cells % 0 % (-); Platelet Count 272 10^3/uL (130-400); Red Cell Dist. Width 13.2 % (11.5-14.5)
[2024-11-12 16:40] LABS: Urine Character Clear (Clear)
[2024-11-12 16:50] LABS: ALT (SGPT) 31 U/L (0-50); AST (SGOT) 33 U/L (17-59); Albumin 4.1 g/dl (3.5-5.0); Alkaline Phosphatase 96 U/L (38-126); Blood Urea Nitrogen 25 mg/dl (9-20); Calcium 9.6 mg/dl (8.4-10.2); Carbon Dioxide 25 mmol/L (22-30); Chloride 105 mmol/L (98-107); Glucose 129 mg/dl (70-99); Potassium 4.5 mmol/L (3.5-5.1); Sodium 139 mmol/L (135-145); Total Protein 7.5 g/dl (6.3-8.2); eGFR 55.53
[2024-11-12 16:55] LABS: Urine Squamous Cell 0-2 /LPF (Few)
[2024-11-12 16:56] LABS: Urine Red Blood Cell 0-2 /HPF (0-2)
[2024-11-12 16:57] LABS: Urine White Cell 40-50 /HPF (0-5)
--- NOTE | 2024-11-12 17:55 | ED.GENMED ---
History of Present Illness
General
Chief Complaint: Change in Mental Status
Source: family and retirement
Exam Limitations: dementia
Time Seen by Provider: 11/12/24 17:18
Nursing documentation reviewed up to this point in time: agreed with
History of Present Illness
History of Present Illness:
Patient is an 79-year-old male who presents to the emergency department from rehab facility due to concerns of transient low blood pressure. Patient unable to contribute much to history given history of dementia.
I spoke to patient's nurse facility who states that patient had routine vital sign check around 3 PM and his blood pressure was 63/39. They did recheck blood pressure multiple times after elevating his legs and it seemed to improve into the low
100s.
The tech/nurses at facility were concerned with initial low reading prompting visit to the emergency department.
They deny any change in mental status.
Patient did have his Zamora catheter removed today after being treated for a UTI. He completed antibiotic therapy about 3 weeks ago.
They deny any recent fevers. He has been eating and drinking at his baseline.
Past History
Past History
ED Past Medical History: HTN and Other (Prior fall with head injury. Dementia)
ED Past Surgical History: Orthopedic and Other (Glaucoma surgery. Posttraumatic surgery)
Social History
Tobacco: Former smoker
Alcohol: None
Drug: None
Personal:
Living: with family
Employment: Retired
Family History
Family History: Other (Noncontributory)
Review of Systems
Review of Systems
Allergies reviewed?: Yes
All Other Systems: ROS reviewed and negative except as documented in HPI and ROS
Phy Exam
Physical Exam
Physical Exam:
Vitals: Patient's vital signs are stable. Afebrile
General: Patient is sleeping comfortably, in no apparent distress.
Skin: Warm and dry, no rashes or lesions
Head: Normocephalic, atraumatic
Eyes: Sclera nonicteric. No nystagmus.
Throat: Protecting airway
Neck: Normal ROM, no cervical spine tenderness, no meningismus
Cardiac: Regular rate and rhythm, no murmurs.
Pulm: Normal respiratory effort, no wheezes, rales, rhonchi heard on exam
Abdomen: Abdomen soft and nontender. No rebound tenderness.
Extremities: No evidence of cyanosis or edema. 2+ palpable DP pulses bilaterally
Neuro: Alert. Follows commands. No gross deficits
Psychiatric: Normal affect.
Course
Orders/Labs/Results
Orders:
Orders
11/12/24 16:09
EKG [Electrocardiogram (*1)] Urgent
Reason for Study: Tachycardia
EKG- Treatment ONCE
11/12/24 16:28
Complete Blood Count/With Diff Urgent
Comprehensive Metabolic Panel Urgent
Urinalysis Reflex To Culture Urgent
Date Specimen was Collected: 11/12/24
Time Specimen was Collected: 16:09
Urine Microscopic Reflex Cult Urgent
Urine Culture Urgent
HELENA Source: U
Specimen Description:
Date Specimen was Collected: 11/12/24
Time Specimen was Collected: 16:09
11/12/24 17:59
Orthostatic VS- Treatment ONCE
CefTRIAXone [Rocephin] 1,000 mg IV NOW STA
Abnormal Lab Results
11/12/24
16:28
RBC 4.63 L 10^6/uL
(4.70-6.10)
Absolute Lymphs (auto) 1.1 L 10^3/uL
(1.2-3.4)
Lymphocytes % 15.2 L %
(20.5-51.1)
BUN 25 H mg/dl
(9-20)
Glucose 129 H mg/dl
(70-99)
Urine Ketones 1+ A
(Negative)
Ur Occult Blood Reflex 4+ A
(Negative)
Urine Bilirubin 1+ A
(Negative)
Leukocyte Esterase Rfl 3+ A
(Negative)
Urine WBC (Reflex) 40-50 A /HPF
(0-5)
Urine Bacteria (Reflex) Few A
(Negative)
Urine Albumin (Reflex) 3+ A
(Neg - Trace)
11/12/24 16:28
11/12/24 16:28
Vital Signs
Initial and Last Documented VS:
Initial Vital Signs
Pulse Resp BP
93 19 126/70
11/12/24 16:07 11/12/24 16:07 11/12/24 16:07
Last Documented Vital Signs
Temp Pulse Resp BP Pulse Ox
97.0 F 81 16 132/83 94
11/12/24 16:09 11/12/24 21:00 11/12/24 21:00 11/12/24 21:00 11/12/24 20:15
MDM/Problems Addressed
Differential Diagnosis Includes:
Not limited to: Orthostatic hypotension, acute dehydration, electrolyte abnormality, UTI, medication side effect, etc.
MDM/Problems Addressed:
79-year-old male presenting from rehab facility after transient hypotension noted during routine vital sign check. BP did improve relatively quickly after elevating his legs per nurse at facility. No history of change in mental status per
patient's nurse from facility or family. Vitals and exam as above. Patient alert and following commands. Moving all extremities. Abdomen soft nontender. Cardio/pulmonary assessment unremarkable.
Labs were obtained prior to my evaluation without clinically significant abnormalities. Urine does appear infected. He did have his Zamora catheter removed today. Patient's vital signs, including blood pressure have remained stable in the
emergency department. According to EMS record/BP normal and route. Patient did receive a liter of IV fluids. No significant drop in blood pressure when moved from lying to sitting position.
Unsure etiology of transient hypotension earlier today. BUN is somewhat elevated�possibly indicating dehydration orthostasis. Again�no evidence of change in mental status from his baseline. Do not feel any admission indicated today. Discussed
with nurse at rehab facility�will plan to treat UTI and discharge back home. Advised frequent bladder scans to ensure no evidence of urinary retention close monitoring of patient for change in symptoms or abnormal vital signs. Patient's family
comfortable with plan
Chronic conditions affecting care:
Dementia
Acute Exacerbation and/or Progression of Chronic Illness:
N/A
*Pulse Oximetry
SaO2: 97
Oxygen Mode of Delivery: Room air
Patient hypoxic: no
*EKG
Interpreted by ED Provider?: Yes
EKG Intrepretation Date: 11/12/24
Interpretation: abnormal
Comparison EKG: changes noted
Heart Rate: 91
Rate: normal
Rhythm: sinus
[place]: left axis deviation
Interval: normal QT interval
QRS Pattern: normal QRS
Ischemia: no ischemia
*Automobile Appraiser Interpretation
Rate: Automobile Appraiser- N/A
*Critical Care Note
Total Time (30-74mins, 75-104mins- exclusive of procedures): Not Applicable
Data Reviewed
Review of Other/Old Records Reveals: Labs (Urine culture from 10/19/2024-no growth)
ED Attending Note
-
Portions of this chart may have been created with voice recognition software.� Occasional wrong word or��sound alike� substitutions may have occurred due to the inherent limitations of voice recognition software.
Discharge Plan
Departure
Patient Disposition: Home (Routine Discharge)
Date of Disposition: 11/12/24
Time of Disposition: 18:47
Patient with high blood pressure during this ER visit?: Yes
Condition: Good
Discharge Problem:
UTI (urinary tract infection)
Instructions: Urinary tract infection in adults - ED discharge instructions
Prescriptions:
New
cefdinir 300 mg capsule
300 mg PO BID 7 Days Qty: 14 0RF
No Action
quetiapine 25 mg tablet
50 mg PO DAILY
lisinopril 10 mg tablet
10 mg PO DAILY
quetiapine [Seroquel] 50 mg Tablet
75 mg PO BID@1200,2100
timolol maleate 0.5 % Drops
1 drp RIGHT EYE DAILY
cefdinir 300 mg capsule
300 mg PO BID Qty: 6 0RF
Referrals:
PRIVATE,PHYSICIAN [Family Provider, Internal Medicine]
Activity Restrictions/Additional Instructions:
RETURN TO THE EMERGENCY DEPARTMENT ANY CHANGES IN MENTAL STATUS, FEVER, NAUSEA/VOMITING, ABDOMINAL/BACK PAIN, GENERALIZED WEAKNESS, WORSENING CURRENT SYMPTOMS, OR ANY OTHER CONCERNS
- As discussed�your vital signs were normal while in the emergency department. You were given a liter of IV fluids. Your urine does appear infected.
- You were given 1 dose of IV antibiotics. Oral antibiotics sent to your pharmacy which you should start tomorrow and take twice a day for 7 days.
- Follow-up with your primary care doctor for further evaluation/management to ensure that your symptoms improve
- Please BladderScan patient periodically given recent Zamora removal and to ensure that patient is not retaining urine.
Monitor patient closely and return to the emergency department if any acute worsening/new symptoms or any other concerns
Interventions
Interventions:
*Risk Screen - Suicide Last Done: 11/12/24 16:06
*General Assessment Last Done: 11/12/24 16:06
*Neglect/Abuse Screening Last Done: 11/12/24 16:06
*ED- Fall Risk Assessment Last Done: 11/12/24 16:06
*ED COVID-19 Vaccine History Last Done: 11/12/24 16:06
*Nursing Disposition Last Done: 11/12/24 21:13
ED- Pulmonary Assessment Last Done: 11/12/24 17:24
ED- Neurological Assessment Last Done: 11/12/24 17:24
ED- Cardiac Assessment Last Done: 11/12/24 17:24
Discharge Date and Time
Discharge Date/Time: 11/12/24 21:14
Print Language: DIVEHI
[2024-11-12] MEDS: ROCEPHIN 1000 MG IV (18:36)
== END 2024-11-12 21:14 ==
LOC: EMR 16:01
PROVIDERS: Emergency Medicine; EMERGENCY PHYSICIAN Emergency Medicine
DX: N39.0 Urinary tract infection, site not specified (principal); I95.9 Hypotension, unspecified; F03.90 Unspecified dementia, unspecified severity, without behavioral disturbance, psychotic disturbance, mood disturbance, and anxiety; I10 Essential (primary) hypertension; R00.0 Tachycardia, unspecified; Z87.891 Personal history of nicotine dependence
CPT/HCPCS: 99284; 96374; 80053; 81003; 81015; 85025; 87086; 93005

== ENCOUNTER 2024-11-17 16:04 | Inpatient (IN) | payer OTHER, SELFPAY ==
[2024-11-17 10:37] VITALS: BP 109/75; BMI 20.6
--- NOTE | 2024-11-17 10:40 | ED.GENMED ---
History of Present Illness
General
Chief Complaint: Change in Mental Status
Source: ambulance crew
Exam Limitations: dementia
Time Seen by Provider: 11/17/24 10:39
History of Present Illness
History of Present Illness:
Patient is an 79-year-old male with history dementia was found seated in a chair in the sun in the back deck unresponsive. Questionable palpable pulses however EMS reports he was placed supine and he had pulses. His systolic blood pressure was
noted as per EMS to be 70 increased to 100 with normal saline.
Patient presents sleeping but opens eyes to his name confused conversation.
As per daughter pt was in [facility] rehab since October 23 until yesterday.
Pt was on antibx for UTI.
Daughter reports pt has been able to walk but ever since being in [facility] does not seem to be himself. He was able to walk out on the deck today
Today pt was on the deck with his daughter and she reports his 'eyes looked like he wasnt looking at me,' and he was out for a while and EMS was called. Daughter reports the patient has had now 3 episodes over the past month where he' seems to
pass out.'
Past History
Past History
ED Past Medical History: HTN and Other (Prior fall with head injury. Dementia)
ED Past Surgical History: Orthopedic and Other (Glaucoma surgery. Posttraumatic surgery)
Social History
Tobacco: Former smoker
Alcohol: None
Drug: None
Personal:
Living: with family
Employment: Retired
Family History
Family History: Other (Noncontributory)
Phy Exam
General Physical Exam
General Presentation: no apparent distress
General age: appears stated age
General Skin: warm and dry
General Habitus: elderly
General Mental: confused
General Hydration: dry mucous membranes
Cardiovascular Exam
Cardiovascular Exam: regular rate/rhythm, no murmur and normal peripheral pulses
Pulmonary Exam
Pulmonary Exam: lungs clear and no respiratory distress
Neurological Exam
Neurological Exam: alert
Musculoskeletal Exam
Musculoskeletal Exam: full ROM
Skin Exam
Skin Exam: normal color, warm/dry and other (several areas of open sores to abd/chest )
Psychiatric Exam
Psychiatric Exam: normal mood/affect
Course
Orders/Labs/Results
Orders:
Orders
11/17/24 10:36
ECG [Electrocardiogram (*1)] Urgent
Reason for Study: Syncope
EKG- Treatment ONCE
11/17/24 11:02
CT Head W/o Iv Contrast Urgent
Comment:
Reason For Exam: acute ms change
11/17/24 11:08
Chest [CR Chest - 2 Views ] Urgent
Comment:
Reason For Exam: change in ms
11/17/24 11:09
Straight cath- Treatment ONCE
0.9% Sodium Chloride 1000 ml [Nss] 1,000 ml IV BOLUS
11/17/24 11:19
Complete Blood Count/With Diff Urgent
Comprehensive Metabolic Panel Urgent
Troponin I Urgent
11/17/24 12:52
Quetiapine Fumarate [Seroquel] 50 mg PO NOW STA
11/17/24 13:53
UA Reflex to Culture [Urinalysis Reflex To Culture] Urgent
Date Specimen was Collected: 11/17/24
Time Specimen was Collected: 11:24
Urine Microscopic Reflex Cult Urgent
Urine Culture Urgent
HELENA Source: U
Specimen Description:
Date Specimen was Collected: 11/17/24
Time Specimen was Collected: 11:24
Abnormal Lab Results
11/17/24 11/17/24
11:19 13:53
RBC 4.32 L 10^6/uL
(4.70-6.10)
Hgb 12.4 L g/dL
(13.0-18.0)
Hct 37.3 L %
(39.0-52.0)
Absolute Lymphs (auto) 1.0 L 10^3/uL
(1.2-3.4)
Lymphocytes % 18.6 L %
(20.5-51.1)
Eosinophils % 6.5 H %
(0-6)
Chloride 108 H mmol/L
(98-107)
Glucose 104 H mg/dl
(70-99)
Urine Ketones 2+ A
(Negative)
Leukocyte Esterase Rfl 2+ A
(Negative)
Urine Bacteria (Reflex) Few A
(Negative)
Urine Albumin (Reflex) 1+ A
(Neg - Trace)
11/17/24 11:19
11/17/24 11:19
Vital Signs
Initial and Last Documented VS:
Initial Vital Signs
Pulse Resp BP Pulse Ox
78 16 109/75 100
11/17/24 10:37 11/17/24 10:37 11/17/24 10:37 11/17/24 10:37
Last Documented Vital Signs
Pulse Resp BP Pulse Ox
82 21 109/75 100
11/17/24 12:30 11/17/24 12:30 11/17/24 10:37 11/17/24 12:15
Crucible Packer consulted with Physician
Crucible Packer consulted with physician?: Yes
Name of Physician Consulted: champ
MDM/Problems Addressed
Differential Diagnosis Includes:
Not limited to syncope, dehydration infection
MDM/Problems Addressed:
Will admit for questional syncopal episode that was witnessed on the patient's deck by daughter. Patient was apparently outside with his daughter and the son. Patient presents awake but confused history of dementia. Patient is afebrile with a
normal white count no acute findings on labs apparently. He was [facility] and was treated for UTI at the time and is on cefdinir. No acute infection here in the ER. CT head and chest x-ray negative. EKG shows
sinus rhythm with occasional PVCs no obvious change.
Will admit to the hospital service for further ration of syncope
Chronic conditions affecting care:
Dementia recent UTI
Chronic conditions affecting care: Cardiomyopathy
*Radiology
Radiology exam reviewed: radiology read reviewed
*Pulse Oximetry
SaO2: 100
Oxygen Mode of Delivery: Room air
Patient hypoxic: no
*EKG
Interpreted by ED Provider?: Yes
Heart Rate: 78
Rate: normal
Rhythm: sinus
Ischemia: non-specific ST changes
*Critical Care Note
Total Time (30-74mins, 75-104mins- exclusive of procedures): Not Applicable
Data Reviewed
Review of Other/Old Records Reveals: Labs
Source: family and ambulance crew
ED Attending Note
-
Portions of this chart may have been created with voice recognition software.� Occasional wrong word or��sound alike� substitutions may have occurred due to the inherent limitations of voice recognition software.
Discharge Plan
Departure
Patient Disposition: Admit
Date of Disposition: 11/17/24
Time of Disposition: 14:54
Admit to: Med/Surg
Admit to doctor: hospitalist
Presentation/result/management discussed w/ accepting MD/DO: Hospitalist
Patient with high blood pressure during this ER visit?: No
Condition: Fair
Covid-19: Not Applicable
Discharge Problem:
Syncope
Prescriptions:
No Action
quetiapine 25 mg tablet
50 mg PO DAILY
lisinopril 10 mg tablet
10 mg PO DAILY
quetiapine [Seroquel] 50 mg Tablet
75 mg PO BID@1200,2100
timolol maleate 0.5 % Drops
1 drp RIGHT EYE DAILY
cefdinir 300 mg capsule
300 mg PO BID Qty: 6 0RF
cefdinir 300 mg capsule
300 mg PO BID 7 Days Qty: 14 0RF
Referrals:
UNKNOWN - PT DOES,NOT KNOW [Family Provider]
Interventions
Interventions:
ED- Pulmonary Assessment Last Done: 11/17/24 11:26
ED- Neurological Assessment Last Done: 11/17/24 11:26
ED- Cardiac Assessment Last Done: 11/17/24 11:26
ED Swallowing Screen Last Done: 11/17/24 11:26
Discharge Date and Time
Print Language: ARMENIAN
[2024-11-17] MEDS: NSS 1000 IV (11:24)
[2024-11-17 11:27] LABS: Hematocrit 37.3 % (39.0-52.0); Hemoglobin 12.4 g/dL (13.0-18.0); Mean Corp Hgb Conc. 33.2 g/dL (33.0-37.0); Mean Corpuscular Volume 86.3 fL (80.0-94.0); Nucleated Red Blood Cells % 0 % (-); Platelet Count 241 10^3/uL (130-400); Red Cell Dist. Width 13.5 % (11.5-14.5)
[2024-11-17 11:55] LABS: ALT (SGPT) 26 U/L (0-50); AST (SGOT) 31 U/L (17-59); Albumin 3.5 g/dl (3.5-5.0); Alkaline Phosphatase 68 U/L (38-126); Blood Urea Nitrogen 20 mg/dl (9-20); Calcium 9.5 mg/dl (8.4-10.2); Carbon Dioxide 27 mmol/L (22-30); Chloride 108 mmol/L (98-107); Estimated Creatinine Clearance 51 ml/min; Glucose 104 mg/dl (70-99); Potassium 4.6 mmol/L (3.5-5.1); Sodium 138 mmol/L (135-145); Total Protein 6.7 g/dl (6.3-8.2); eGFR > 60.00
[2024-11-17 12:08] LABS: Troponin I < 0.012 ng/ml
[2024-11-17] MEDS: SEROQUEL 50 MG PO (13:32)
[2024-11-17 14:06] LABS: Urine Character Slightly Cloudy (Clear)
[2024-11-17 14:27] LABS: Urine Squamous Cell 0-2 /LPF (Few)
[2024-11-17 14:28] LABS: Urine Red Blood Cell 0-2 /HPF (0-2)
--- NOTE | 2024-11-17 15:57 | HPS.HSE ---
Addendum entered and electronically signed by William Liao MD 11/18/24 13:42:
Syncope, unresponsive while sitting outside on his deck, witnessed by daughter
EKG nonischemic
Check orthostatics
2d echo
Tele monitor
Check TSH
AM cortisol
Dementia
?End stage
GoC
Continue Seroquel
PT/OT
HTN
Lisinopril
Original Note:
Family Physician
-
Family Physician: NOT KNOW UNKNOWN - PT DOES
Chief Complaint
-
Syncopal episode
History of Present Illness
This is an 79-year-old male with past medical history of Alzheimer's dementia, TBI, hypertension who presents to [facility] after he was found unresponsive this morning. History was obtained from review of chart and from daughter over the phone.
Per daughter, patient with multiple syncopal episodes spanning for the past 3 years. She reports the patient was sitting at deck under the sun when she noticed he passed out and was unresponsive while sitting on his chair. Patient did not hit his
head, did not fall, was in a sitting position all through this episode. No episodes of jerking, no incontinence. She reports he was 'not breathing', hence she called EMS. His blood pressure was checked by EMS and was noted to be 70/40, also noted
to have pulses present. He was brought to the ED for evaluation.
Pertinent to his history, patient was recently discharged from [facility], with recent completion of cefdinir for UTI. He was recently admitted at this hospital 10/19/2024 and then discharged to [facility] rehab..
She reports patient is currently at his typical baseline.
Upon presentation to the ED, blood pressure 109/75, pulse 78, respiratory 16, O2 sats 100% on room air. He was evaluated with a CT head without evidence for acute intracranial hemorrhage. He was evaluated with a chest x-ray which was unremarkable.
Urinalysis was negative. EKG showed NSR with occasional PVCs.
Medical History
Past Medical History
Past Medical History: Reports Other (Alzheimer's dementia, TBI, hypertension)
Past Surgical History: Reports Orthopedic
Social History
Unable to obtain full social history at this time due to: Dementia
Family History
Family History: Not pertinent
Allergies / Home Medications
Allergies reflects when Allergies were last updated in [facility].
Home Medications with original date entered in [facility]
Allergy/Medication List:
Allergies
Allergy/AdvReac Type Severity Reaction Status Date / Time
amoxicillin Allergy Rash/swelling, Verified 11/12/24 16:14
itching
Home Medications
lisinopril 10 mg tablet 10 mg PO DAILY Blood pressure 03/31/22
quetiapine 25 mg tablet 50 mg PO DAILY Mental Health/Anxiety 03/31/22
quetiapine 50 mg tablet (Seroquel) 75 mg PO BID@1200,2100 mental health 10/19/24
timolol maleate 0.5 % eye drops 1 drp RIGHT EYE DAILY Eye Condition 10/19/24
cefdinir 300 mg capsule 300 mg PO BID #6 caps 10/23/24
cefdinir 300 mg capsule 300 mg PO BID 7 days #14 caps 11/12/24
Review of Systems
-
Unable to obtain full review of systems at this time due to: Dementia
Physical Exam
Vital Signs
Vital Signs
Temp Pulse Resp BP Pulse Ox
98.1 F 86 15 109/75 100
11/17/24 14:55 11/17/24 14:45 11/17/24 14:45 11/17/24 10:37 11/17/24 14:55
Physical Exam
General: No Apparent Distress and Comfortable
HEENT: NormoCephalic
Respiratory: Clear
Cardiac: S1/S2 and Regular Rhythm
GI: Soft, Non Tender and Non Distended
Musculoskeletal: No Clubbing and No Edema
Skin: Warm and Dry
Neuro: Awake
Psych: Apparent Dementia
Laboratory Results
-
11/17/24 11:19
11/17/24 11:19
Laboratory Results
Total Bilirubin 0.9 mg/dl (0.2-1.3) 11/17/24 11:19
AST 31 U/L (17-59) 11/17/24 11:19
ALT 26 U/L (0-50) 11/17/24 11:19
Alkaline Phosphatase 68 U/L (38-126) 11/17/24 11:19
Troponin I < 0.012 ng/ml 11/17/24 11:19
Impression/Plan
-
Assessment/plan
#Syncopal episodes with recurrent hypotension
-EKG upon presentation NSR with occasional PVCs
-Check orthostatics
-Cardiology consult
-Monitor on telemetry
-Check TSH, a.m. cortisol
#Alzheimer's dementia
-Aggressive and combative behaviors at the last hospitalization
-History of TBI
-PT/OT
-Continue home quetiapinel
#Essential hypertension
-Hold lisinopril
DVT prophylaxis SCDs
CODE STATUS DNR
Extensive discussion had with daughter (Esperanza) regarding goals of care. Per daughter, 'patient has been having these syncopal episodes for the past 3 years. She wants all investigation done. He has had multiple hospitalization regarding this
episodes and no one seems to figure out why he keeps having the syncopal episodes'
[2024-11-17 16:16] LABS: Magnesium 1.9 mg/dl (1.6-2.3)
[2024-11-17 17:21] VITALS: BP 144/97
--- NOTE | 2024-11-17 17:53 | PTCARENOTE ---
RN called Esperanza (daughter, primary contact) to complete patient admission. Daughter voiced concerns over pt swallowing, and said [facility] fed him pureed diet and pills were crushed in pudding/applesauce. Healing blister noted on right lower back and
right lower abdomen. Daughter said 'he has been getting blisters all over for the past month'. Relayed all above information to hospitalist and resident
[2024-11-17 19:15] VITALS: BP 143/88
[2024-11-17] MEDS: SEROQUEL 75 MG PO (19:59)
[2024-11-17 23:02] VITALS: BP 109/83
[2024-11-18] VITALS (8 sets, daily range): BP systolic 121–143; BP diastolic 72–85; PULSE 90; BMI 20.6
[2024-11-18 05:50] LABS: Hematocrit 39.6 % (39.0-52.0); Hemoglobin 13.1 g/dL (13.0-18.0); Mean Corp Hgb Conc. 33.1 g/dL (33.0-37.0); Mean Corpuscular Volume 87.2 fL (80.0-94.0); Nucleated Red Blood Cells % 0 % (-); Platelet Count 226 10^3/uL (130-400); Red Cell Dist. Width 13.4 % (11.5-14.5)
[2024-11-18 06:11] LABS: Blood Urea Nitrogen 14 mg/dl (9-20); Calcium 9.7 mg/dl (8.4-10.2); Carbon Dioxide 24 mmol/L (22-30); Chloride 108 mmol/L (98-107); Estimated Creatinine Clearance 70 ml/min; Glucose 87 mg/dl (70-99); Magnesium 2.0 mg/dl (1.6-2.3); Potassium 4.4 mmol/L (3.5-5.1); Sodium 139 mmol/L (135-145); eGFR > 60.00
[2024-11-18 06:41] LABS: Cortisol, Random 11.5 ug/dl; TSH 1.70 uIU/ml (0.47-4.68)
--- NOTE | 2024-11-18 07:57 | W.PN.HOSP.TC ---
Addendum entered and electronically signed by William Liao MD 11/18/24 13:44:
Syncope, unresponsive while sitting outside on his deck, witnessed by daughter
EKG nonischemic
Check orthostatics
2d echo
Tele monitor
TSH and Cortisol within normal
Dementia
?End stage
GoC
Continue Seroquel
PT/OT
HTN
Lisinopril
Original Note:
Today's Communication/Plan
-
See A/P
Assessment / Plan
Assessment / Plan
Assessment/plan
#Syncopal episodes with recurrent hypotension
-EKG upon presentation NSR with occasional PVCs
-Check orthostatics
-Cardiology consulted, pending evaluation
-Monitor on telemetry
-TSH, cortisol appropriate
#Chronic wounds
-noted on right upper back and right posterior gluteal region
-Consult wound care
#Alzheimer's dementia
-Aggressive and combative behaviors at the last hospitalization
-History of TBI
-PT/OT/ST
-Continue home quetiapine
#Essential hypertension
-Hold lisinopril
DVT prophylaxis SCDs
CODE STATUS DNR
Anticipated Discharge: > 48 hours
Subjective/Interval History
-
Patient seen and examined at bedside. Multiple wounds noted on upper right back and upper posterior buttock. Otherwise laying in bed comfortably, no acute distress
Objective Data
-
Labs:
Laboratory Results
11/18/24
05:34
WBC 5.3
Hgb 13.1
Hct 39.6
Plt Count 226
Sodium 139
Potassium 4.4
Chloride 108 H
Carbon Dioxide 24
BUN 14
Creatinine 0.8
Glucose 87
Calcium 9.7
Vital Signs:
Vital Signs
Temp Pulse Resp BP Pulse Ox
97.6 F 81 21 137/83 90
11/18/24 07:33 11/18/24 07:33 11/18/24 07:33 11/18/24 07:33 11/18/24 07:33
Review of Systems
-
All other systems: Reviewed and negative (Except as documented)
Physical Exam
-
General: Well Developed, No Apparent Distress and Comfortable
HEENT: Normocephalic
Respiratory: Clear to Auscultation; Negative Wheezes or Crackles
Cardiac: Regular Rhythm and S1/S2
GI: Soft, Nontender, Nondistended and Normal Bowel Sounds
Musculoskeletal: No Edema
Skin: Other (Chronic wounds noted on right upper back and right posterior gluteal region)
Neuro: Awake
Psych: Apparent Dementia
[2024-11-18] MEDS: SEROQUEL 50 MG PO (10:06)
--- NOTE | 2024-11-18 12:13 | PTOTSP ---
Speech Therapy Evaluation:
Pt with signs concerning for oral > pharyngeal dysphagia as demonstrated by significant oral holding, requiring ongoing verbal cues and direct models for initiation of pharyngeal swallow. No overt s/sx of aspiration observed. Family present at
bedside and reported current presentation is consistent with pt's baseline swallow function. Cognition appears to be main barrier to PO intake. Given CXR without acute cardiopulmonary process, WBC WNL, afebrile, on room air, and ~30lb weight loss
since October with pureed textures at [place], recommend soft and bite sized solids/thin liquids with 1:1 supervision.
Recommend:
1. Continue IDDSI Level 6 (soft and bite sized solids), thin liquids
2. Medications crushed in puree
3. 1:1 ASSIST/SUPERVISON. Pt requires ongoing verbal cues to initiate pharyngeal swallow
4. Strict aspiration precautions
5. CENTER MGR to follow to monitor tolerance of diet and determine if furhter advancement/modifications necessary
--- NOTE | 2024-11-18 12:36 | CON.CAR ---
Consultation
Consultation Request
Date/Time Consultation Requested: November 17, 2024 8 PM
Date/Time Consultation Performed: November 18, 2024 12 PM
Requesting Provider: Hospitalist
Performing Provider: Navneet Melton
Reason for Consultation: syncope
Medical History
-
Chief Complaint: Syncope
History of Present Illness:
79-year-old male with past medical history of Alzheimer's dementia, TBI, hypertension who is seen yesterday and admitted for unresponsive episode. History is obtained from chart review given patient is oriented to person only.
According to the patient daughter he has had multiple syncopal episodes spanning the last several years. The patient was sitting on the deck when she noticed he was not moving and was unresponsive. He did not fall or hit his head and there was
noes concerning signs or symptoms of syncope. She did not believe he was breathing and she called EMS. His blood pressure was noted to be low at 70/40 but pulses were present. In the emergency room workup appeared rather unremarkable and we were
consulted.
Past Medical History
Past Medical History: Other (Dementia hypertension TBI)
Past Surgical History: Orthopedic
Social History
Tobacco: Other (Unable to obtain social history as patient has significant dementia)
Allergies / Home Medications
Allergy/AdvReac Type Severity Reaction Status Date / Time
ciprofloxacin (From Cipro) Allergy Unknown Unknown Verified 11/17/24 17:18
amoxicillin Allergy Rash/swelling, Verified 11/17/24 17:18
itching
�Medication �Instructions �Recorded �Confirmed �Type
lisinopril 10 mg tablet 10 mg PO DAILY Blood pressure 03/31/22 11/17/24 History
quetiapine 25 mg tablet 50 mg PO DAILY Mental 03/31/22 10/19/24 History
Health/Anxiety
quetiapine 50 mg tablet (Seroquel) 75 mg PO BID@1200,2100 mental 10/19/24 11/17/24 History
health
timolol maleate 0.5 % eye drops 1 drp RIGHT EYE DAILY Eye Condition 10/19/24 11/17/24 History
cefdinir 300 mg capsule 300 mg PO BID #6 caps 10/23/24 11/17/24 Rx
cefdinir 300 mg capsule 300 mg PO BID 7 days #14 caps 11/12/24 Rx
Review of Systems
-
All other systems: Negative unless noted
Physical Exam
Vital Signs
Temp Pulse Resp BP Pulse Ox
97.7 F 92 20 135/77 100
11/18/24 11:18 11/18/24 11:18 11/18/24 11:18 11/18/24 11:18 11/18/24 11:18
Lab Results
11/18/24 05:34
11/18/24 05:34
Troponin I < 0.012 ng/ml 11/17/24 11:19
Physical Exam
General: Well Developed
HEENT: Normocephalic
Respiratory: Clear and Non Labored Respirations
Cardiac: S1/S2 and Regular Rhythm
GI: Soft
Musculoskeletal: No Clubbing and No Edema
Skin: Warm and Dry
Neuro: Oriented (Oriented to person only)
Psych: Confused
Impression / Plan
-
A/P: 79-year-old with significant advanced dementia oriented to person only, TBI, hypertension who is here after a possible syncopal episode.
Syncopal episode
- Nonurgent echo this can be done as an outpatient
- Does not appear to have any indication for possible permanent pacemaker
- Does not appear to be from a cardiac cause at this point
End stage dementia
- pateint is oriented to person only
- he does not remember his birthday
- would consider goals of care
Data Reviewed
-
EKG: Tracing Personally Visualized and interpreted (sr)
Labs: Labs Reviewed by me
[2024-11-18] MEDS: SEROQUEL 75 MG PO ×2 (12:40→19:46)
[2024-11-19 03:00] VITALS: BP 138/78
[2024-11-19 06:55] LABS: Hematocrit 38.5 % (39.0-52.0); Hemoglobin 12.8 g/dL (13.0-18.0); Mean Corp Hgb Conc. 33.2 g/dL (33.0-37.0); Mean Corpuscular Volume 85.7 fL (80.0-94.0); Nucleated Red Blood Cells % 0 % (-); Platelet Count 226 10^3/uL (130-400); Red Cell Dist. Width 13.4 % (11.5-14.5)
[2024-11-19 07:00] VITALS: BP 163/95
--- NOTE | 2024-11-19 07:04 | W.PN.HOSP.TC ---
Addendum entered and electronically signed by Po Morrison MD 11/19/24 23:16:
Attending Addendum-
I saw and evaluated the patient. I reviewed the resident�s note and agree with findings and plan as documented in the resident�s note. Sub: Patient with high pitched voice not making snese. D/W CG and daughter on phone. 'I want one last full workup'
Patient with no further episodes of syncope. Full 12 point ROS reviewed and negative except as documented Exam: Vitals reviewed in chart GEN-NAD Heart RRR Lungs clear abd soft LE no edema Neuro AAO x 0 follows commands intermittently Skin Dry
Plan:
#Syncopal episodes with recurrent hypotension
-EKG personally reviewed-NSR with occasional PVCs
-Check orthostatics
-Cardiology consulted- appreciate input
-Monitor on telemetry
-TSH, cortisol appropriate
-check 2d echo and carotid u/s
-try prn midodrine in am
-start IVF
#Chronic wounds / Coccyx stage 1 pressure ulcer POA
-Consult wound care
#Alzheimer's dementia
-h/o aggressive and combative behaviors
-History of TBI
-PT/OT/ST
-Continue home quetiapine
-end stage poor prognosis
#Essential hypertension
-Hold lisinopril
DVT prophylaxis SCDs
CODE STATUS DNR
Dispo just DC'd from [facility] daughter would like to try [facility] DC in am PT rec HOME
Time spent coordinating care, review of plan of care with resident, personally reviewed records in EMR, med rec, consults, notes, labs, radiology, d/w nursing CG and POA � 52 mins
Original Note:
Today's Communication/Plan
-
- NSS fluids
- echocardiogram
- carotid ultrasound
- check orthostatics
Assessment / Plan
Assessment / Plan
Assessment/plan
79 yo M PMH Alzheimer's dementia, TBI, HTN who presented with a syncopal episode. Per daughter, the patient also has experienced multiple episodes of hypotension requiring EMS and hospital admissions over the past months.
#Syncopal episodes with recurrent hypotension
- ddx: cardiogenic (rhythm vs structural), neural-mediated, orthostatic, idiopathic
-EKG upon presentation NSR with occasional PVCs
-TSH, cortisol within normal limits
-Check orthostatics
-echocardiogram ordered (no chart record of echo)
-US carotid ordered
-Monitor on telemetry
-NSS fluid ordered to address possible dehydration
#Chronic wounds
-noted on right upper back and right posterior gluteal region
-wound care following
# Urinary retention
- Bladder scan revealed > 400mL, but patient unable to void
- For now, straight catheterize per protocol since patient had a [place] and was able to pass last week
#Alzheimer's dementia
- AOx1
-Aggressive and combative behaviors at the last hospitalization
-History of TBI
-PT/OT/ST
-Continue home quetiapine
#Essential hypertension
-Hold lisinopril
DVT prophylaxis SCDs
CODE STATUS DNR
Anticipated Discharge: 24 - 48 hours
Subjective/Interval History
-
Date of Service: November 19, 2024
feels well, has no complaints this morning. Nurse reports that he can be agitated at times, weren't able to obtain orthostatics
Objective Data
-
Labs:
Laboratory Results
11/19/24
06:28
WBC 4.8
Hgb 12.8 L
Hct 38.5 L
Plt Count 226
Sodium Pending
Potassium Pending
Chloride Pending
Carbon Dioxide Pending
BUN Pending
Creatinine Pending
Glucose Pending
Calcium Pending
Na 138
K 4.1
Cr 0.9
Mg 1.9
Cortisol 11.5 (5:30am)
TSH 1.7
Vital Signs:
Vital Signs
Temp Pulse Resp BP Pulse Ox
97.0 F 80 14 138/78 98
11/19/24 03:00 11/19/24 03:00 11/19/24 03:00 11/19/24 03:00 11/19/24 03:00
I&O
11/18/24 11/19/24 11/20/24
06:59 06:59 06:59
Intake Total 480 / 480
Output Total 550 / 550
Balance -70 / -70
Review of Systems
-
Unable to obtain full review of systems at this time due to: Dementia
Physical Exam
-
General: No Apparent Distress
HEENT: Normocephalic and Atraumatic
Respiratory: Clear to Auscultation
Cardiac: Regular Rhythm and S1/S2
GI: Nontender
Skin: Other (chronic wounds noted R upper back, R posterior gluteal region)
Neuro: Other (AOx1 to name only)
Psych: Calm
[2024-11-19 07:14] LABS: Blood Urea Nitrogen 14 mg/dl (9-20); Calcium 9.6 mg/dl (8.4-10.2); Carbon Dioxide 26 mmol/L (22-30); Chloride 106 mmol/L (98-107); Estimated Creatinine Clearance 62 ml/min; Glucose 94 mg/dl (70-99); Magnesium 1.9 mg/dl (1.6-2.3); Potassium 4.1 mmol/L (3.5-5.1); Sodium 138 mmol/L (135-145); eGFR > 60.00
[2024-11-19] MEDS: SEROQUEL 50 MG PO (07:32)
--- NOTE | 2024-11-19 08:08 | PHANOTE ---
med rec note- attempt to call janay middleton to double check medication, but when trying to call automatic disconnects, called back to get security but waiting on hold with no answer. called back attempt to try a different floor who gave a me a fake
number to the floor instead of transferring me the the floor
[2024-11-19 11:00] VITALS: BP 103/67
--- NOTE | 2024-11-19 11:14 | WOUNDNOTE ---
L CALF (UPPER LATERAL)
--- NOTE | 2024-11-19 11:14 | WOUNDNOTE ---
L THIGH (UPPER LATERAL)
--- NOTE | 2024-11-19 11:15 | WOUNDNOTE ---
COCCYX/PERIANAL AREA
--- NOTE | 2024-11-19 11:15 | WOUNDNOTE ---
BACK (R SIDE)/FLANK
--- NOTE | 2024-11-19 11:16 | WOUNDNOTE ---
CHEST (LOWER ANTERIOR)
--- NOTE | 2024-11-19 11:18 | WOUNDNOTE ---
L HEEL (BLANCHABLE RED/PURPLE)
--- NOTE | 2024-11-19 11:18 | WOUNDNOTE ---
[facility] RN note: Patient admitted with syncope. Patient has a caregiver named Eri.
See H&P for complete history.
PMH: Dementia, TBI, HTN.
Wound Location and type/assessment: Patient admitted with: dry skin R heel, blanchable red heels. Coccyx stage 1 pressure injury. R back/flank scattered red areas with some dried blisters and a broken dry blister on his lower anterior chest.
Caregiver states he gets raised red areas that blister then dry. Suspect this could be bullous pemphigoid however would need to see a vice president of recruiting to diagnose. Caregiver is aware to follow up with a vice president of recruiting. R hand, R forearm skin tears.
Small scabbed abrasions L leg and L thigh, L elbow/forearm.
Appetite: poor. Patient very thin.
Pressure redistribution devices in place: [employer] Air bed. Patient needs help to turn in bed however he does try to get himself to sit on the side at the bed at times as per nursing.
Plan: Silicone border foam maintained on R hand and arm. Protective foam applied to heels. t/c SPD and order Foot Waffle boots. Air chair cushion given. Instructed pressure injury prevention measures with caregiver Eri.
Will update and confirm orders with hospitalist or resident and discussed with JASON Flanagan.
Care plan to be updated and will follow as needed.
Note to case management of equipment requested for discharge: Air mattress if goes to SNF.
Recommend follow up with vice president of recruiting.
[2024-11-19] MEDS: SEROQUEL 75 MG PO ×2 (12:46→20:55)
[2024-11-19 15:00] VITALS: BP 114/74
[2024-11-19] MEDS: NSS 1000 IV (15:12)
--- NOTE | 2024-11-19 15:43 | CM ---
Patient seen at bedside along with private caregiver Eri
IA completed - obtained via daughter Esperanza
Patient lives with & daughter in 1 story home, 1 [address]
PLOF: Independent, daughter reported no device used
DME: Shower chair, bed rails
Denies VN/[facility] dc on 11/16
PT/OT to eval
PCP: Tomy Brumfield
Pharmacy: [facility]
PLAN: Await PT/OT evals
--- NOTE | 2024-11-19 16:16 | PN.CDI ---
CDI
- -
CDI:
Physician Documentation Request
Admit Date: 11/17/24 16:04
Dear Doctor Prince/Resident,
Please review the following and provide your response in the progress notes.
Clinical Indicators:
Pt admitted with Syncope /Hypotension work up in progress
Documented per [facility] note 11/19, ' Patient admitted with... Coccyx stage 1 pressure injury. ... Instructed pressure injury prevention measures with caregiver Eri....'
Physician documentation of the type and location of wounds is required for compliant documentation. Based on the above clinical findings and your assessment, please provide the following in your progress note:
1. Location of the ulcer/wound, including laterality.
2. Type (etiology) of ulcer/wound:
- Pressure (decubitus) ulcer
- Non-pressure ulcer
- Other ( please specify)
Use of terms such as suspected, likely, concern for, or probable (associated with a specific diagnosis that is being evaluated, monitored, or treated as if it exists) are acceptable and can be coded in the inpatient setting, when documented at the
time of discharge.
Thank you,
Saima Kruger RN
CDI Specialist
[place] [employer]
Please use your independent medical judgment in providing your response.
*Source: National Pressure Ulcer Advisory Panel (NPUAP)
--- NOTE | 2024-11-19 16:24 | PN.CDI ---
CDI
- -
CDI:
Physician Documentation Request
Admit Date: 11/17/24 16:04
Dear Doctor Prince/Resident,
Please review the following and provide your response in the progress notes.
Clinical Indicators:
Pt admitted with Syncope /Hypotension work up in progress
Documented per nutrition consult 11/18, ...Diet: IDDSI 6 appropriate with BUS PERSON evaluation. pt consuming < 50% of meals. CBW: 147 lbs 11.355oz BMI 20.6 (11/17). Pts weight external medical summary listed as 170 lbs 07/16/24 reflective of a 14% weight loss
in [address] able to visualize temporal wasting, protrusion of clavicle, temporal wasting, apparent ribs and calf muscle wasting. With observed muscle and fat wasting and > 10% weight loss in 6 months pt meets AND/ASPEN criteria for
moderate protein calorie malnutrition of chronic illness. RD to have enriched pudding sent on lunch and dinner trays.... Subcutaneous loss over rib cage severity moderate ,orbital moderate ..muscle loss over calf severity moderate, clavicle
moderate, temporal moderate ...'
Based on the above information and your assessment, which of the following most accurately represents the patient's nutritional status?
Moderate protein calorie malnutrition
Other ( please specify)
[employer] [place] Criteria (ACP Hospitalist 2017)
2 or more criteria must be present for either
non severe or severe malnutrition
Note that the criteria differs related to the
presence of an acute or chronic illness
Acute Illness Chronic Illness
Energy Intake Non Severe: <75% for >7 days Non Severe: <75% for >1 month
Severe: <50% for >5 days Severe: <75% for >1 month
Weight Loss Non Severe: 1-2% over 1 week Non Severe: 5% over 1 month
5% over 1 month 7.5% over 3 months
7.5% over 3 months 10% over 6 months
1 year N/A 20% over 1 year
Severe: >2% over 1 week Severe: >5% over 1 month
>5% over 1 month >7.5% over 3 months
>7.5% over 3 months >10% over 6 months
1 year N/A >20% over 1 year
Body Fat Non Severe: Mild Decrease Non Severe: Mild Loss
Severe: Moderate Decrease Severe: Severe Loss
Muscle Mass Non Severe: Mild Decrease Non Severe: Mild Loss
Severe: Moderate Decrease Severe: Severe Loss
Fluid Accumulation Non Severe: Mild Accumulation Non Severe: Mild Accumulation
Severe: Moderate to severe Severe: Moderate to severe
accumulation accumulation
Reduced Crabber Strength Non Severe: N/A Non Severe: N/A
Severe: Measurably reduced Severe: Measurably reduced
Use of terms such as suspected, likely, concern for, or probable (associated with a specific diagnosis that is being evaluated, monitored, or treated as if it exists) are acceptable and can be coded in the inpatient setting, when documented at the
time of discharge.
Thank you,
Saima Kruger RN
CDI Specialist
[place] [employer]
Please use your independent medical judgment in providing your response.
[2024-11-19 19:20] VITALS: BP 115/77
[2024-11-19 23:00] VITALS: BP 136/89
[2024-11-20] VITALS (7 sets, daily range): BP systolic 101–152; BP diastolic 63–95; PULSE 90–108; O2SAT 95
[2024-11-20] MEDS: NSS 1000 IV ×2 (06:14→19:42)
--- NOTE | 2024-11-20 07:08 | W.PN.HOSP.TC ---
Addendum entered and electronically signed by Po Morrison MD 11/20/24 22:20:
Attending Addendum-
I saw and evaluated the patient. I reviewed the resident�s note and agree with findings and plan as documented in the resident�s note. Sub: Patient with high pitched voice not making sense. D/W CG and daughter on phone. 'should neuro see him?'
Patient with no further episodes of syncope. was hypothermic orally overnight. Full 12 point ROS reviewed and negative except as documented Exam: Vitals reviewed in chart GEN-NAD Heart RRR Lungs clear abd soft LE no edema Neuro AAO x 0 follows
commands intermittently Skin Dry
Plan:
#Syncopal episodes with recurrent hypotension
- h/o TBI s/p fall
-EKG personally reviewed-NSR with occasional PVCs
-Cardiology consulted- appreciate input
-Monitor on telemetry
-TSH, cortisol appropriate
-check 2d echo and carotid u/s - < 50% sten B/L, ECHO EF Normal left ventricular size, wall thickness and systolic function. No regional wall motion abnormalities are seen. valves WNL
-try prn midodrine
-improved s/p IVF, possibly dysautonomia
# Hypothermia-
- r/o infection- repeat UA
- josé luis hugger prn
#Urinary Retention
- sc prn
- start flomax
#Chronic wounds / Coccyx stage 1 pressure ulcer POA
-cont wound care
#Alzheimer's dementia
-h/o aggressive and combative behaviors
-History of TBI
-PT/OT/ST appreciated
-Continue home quetiapine
-end stage poor prognosis
#Essential hypertension
-Hold lisinopril
#Moderate PCM- encourage PO
DVT prophylaxis SCDs
CODE STATUS DNR
Dispo just DC'd from [facility] daughter would like to try [facility] , PT rec HOME DC in am
Time spent coordinating care, review of plan of care with resident, personally reviewed records in EMR, med rec, consults, notes, labs, radiology, d/w nursing CG and POA � 53 mins
Original Note:
Today's Communication/Plan
-
- Hypothermia - bear hugger ordered
- UA reflex to culture
- tamsulosin and straight cath per protocol
- wound care for skin wounds
Assessment / Plan
Assessment / Plan
Assessment/plan
79 yo M PMH Alzheimer's dementia, TBI, HTN who presented with a syncopal episode. Per daughter, the patient also has experienced multiple episodes of hypotension requiring EMS and hospital admissions over the past months.
# Hypothermia
- Temperature was 94.5 on recent check
- Bear hugger ordered
- Could be concerning for a brewing infection given recent hx of UTI and repetitive straight catheterizations
- hypothermia and/or difficulty voiding could also point to autonomic dysfunction related to ongoing dementia
- UA reflex to culture
#Syncopal episodes with recurrent hypotension
- ddx: cardiogenic (rhythm vs structural), neural-mediated, orthostatic, idiopathic
-EKG upon presentation NSR with occasional PVCs
-TSH, cortisol within normal limits
- PT note reports a BP drop upon sitting and standing which is c/w orthostatics
- However, echocardiogram and carotid ultrasound were within normal limits
- Monitor on telemetry
- consider continuing fluids to address dehydration / orthostasis
# Urinary retention
- straight catheterize per protocol
- start tamsulosin
#Chronic wounds
Location, type and further characteristics are described as follows: 'dry skin R heel, blanchable red heels. Coccyx stage 1 pressure injury. R back/flank scattered red areas with some dried blisters and a broken dry blister on his lower anterior
chest. R hand, R forearm skin tears. Small scabbed abrasions L leg and L thigh, L elbow/forearm.'
-noted on right upper back and right posterior gluteal region
- etiology of wounds are unclear but may be suspected due to old age, however, other etiologies may be more formally evaluated in an outpatient setting with dermatology follow-up on discharge
- wound care following
#Alzheimer's dementia
- AOx1
-Aggressive and combative behaviors at the last hospitalization
-History of TBI
-PT/OT/ST
- outpatient neurology may be more appropriate to further manage diagnosis of Alzheimer's or investigate dementia due to other neurodegenerative disorders
-Continue home quetiapine
#Essential hypertension
-Hold lisinopril
- Esperanza, daughter, confirms that he was taking lisinopril as outpatient. If he is recurrently hypotensive, consider d/c lisinopril upon discharge
# suspected Moderate protein calorie malnutrition
- per nutrition consult, reported weight loss and nutrition focused physical assessment point towards moderate protein calorie malnutrition
DVT prophylaxis SCDs
CODE STATUS DNR
Disposition: PT/case management working on setting up home health
Spoke with daughter Esperanza and counseled on encouraging goals of care discussion.
This conversation occurred on 11/20/2024 around 17:40, the daughter is tearful and anxious saying that her father has been behaving differently for the past month, but no one is giving her an answer as to why. She says 'if someone will tell [her]
that this is the course of dementia, then she'll be okay with it.' also adding 'what is she supposed to do if or when her father passes out again when he is back home, should she let him ?.' The daughter has power of clerical office. She also added 'she
wants to take her father home, not to a rehab facility.'
Anticipated Discharge: 24 - 48 hours
Subjective/Interval History
-
Date of Service: November 20, 2024
he appeared more tense today, was not happy with the straight catheter
overnight events, temperature dropped to 95 - he also reported that he was cold
Objective Data
-
Labs:
Laboratory Results
11/20/24
06:00
WBC Pending
Hgb Pending
Hct Pending
Plt Count Pending
Sodium Pending
Potassium Pending
Chloride Pending
Carbon Dioxide Pending
BUN Pending
Creatinine Pending
Glucose Pending
Calcium Pending
WBC 5.4
Hgb 13.1
Electrolytes pending
echocardiogram 11/20/2024
SUMMARY
1. Normal left ventricular size, wall thickness and systolic function. No regional wall motion abnormalities are seen.
2. No significant valve disease.
3. No prior study available for comparison.
carotid ultrasound 11/20/2024
IMPRESSION:
RIGHT. Soft plaque is identified in the common carotid artery. Mixed plaque is identified in the carotid bulb and internal carotid artery. Carotid velocity measurements are consistent with less than 50% internal carotid artery stenosis. Vertebral
artery flow is antegrade.
LEFT: Soft plaque is identified in the common carotid artery. Mixed plaque is identified in the carotid bulb. Plaque is identified in the internal carotid artery. Carotid velocity measurements are consistent with less than 50% internal carotid
artery stenosis. Vertebral artery flow is antegrade.
Vital Signs:
Vital Signs
Temp Pulse Resp BP Pulse Ox
98.1 F 86 14 141/92 93
11/20/24 04:04 11/20/24 03:00 11/20/24 03:00 11/20/24 03:00 11/20/24 03:00
BP running slightly high at 140s-150s
Temp of 95
I&O
11/19/24 11/20/24 11/21/24
06:59 06:59 06:59
Intake Total 480 / 480 820 / 820
Output Total 550 / 550 400 / 400
Balance -70 / -70 420 / 420
straight cath output was 900 mL
Physical Exam
-
HEENT: Normocephalic and Atraumatic
Respiratory: Clear to Auscultation
Cardiac: Regular Rhythm and Other (no murmurs on my exam)
GI: Other (slightly tense )
Musculoskeletal: No Edema
Skin: Warm
Neuro: Other (AOx1)
Psych: Confused
[2024-11-20 08:11] LABS: Hematocrit 38.5 % (39.0-52.0); Hemoglobin 13.1 g/dL (13.0-18.0); Mean Corp Hgb Conc. 34.0 g/dL (33.0-37.0); Mean Corpuscular Volume 85.0 fL (80.0-94.0); Platelet Count 232 10^3/uL (130-400); Red Cell Dist. Width 13.5 % (11.5-14.5)
[2024-11-20] MEDS: SEROQUEL PO ×2 (08:32→08:44)
--- NOTE | 2024-11-20 09:10 | CM ---
Addendum entered by Gudelia Parrish 11/20/24 09:15:
CM consult completed for VN
Original Note:
spoke with daughter Esperanza [phone]
PT rec Home health
discussed with daughter who stated prefer [facility]
Referral entered in [facility]
patient also has private caregiver
PLAN: Home with [facility] when stable
Fax #: [phone]
daughter will transport
[2024-11-20 09:16] LABS: Blood Urea Nitrogen 10 mg/dl (9-20); Calcium 9.6 mg/dl (8.4-10.2); Carbon Dioxide 23 mmol/L (22-30); Chloride 107 mmol/L (98-107); Estimated Creatinine Clearance 70 ml/min; Glucose 94 mg/dl (70-99); Potassium 4.1 mmol/L (3.5-5.1); Sodium 137 mmol/L (135-145); eGFR > 60.00
[2024-11-20] MEDS: SEROQUEL 75 MG PO ×2 (12:19→21:00)
[2024-11-20] MEDS: FLOMAX 0.4 MG PO (14:42)
[2024-11-20] MEDS: NSS IV (20:21)
[2024-11-21] VITALS (8 sets, daily range): BP systolic 77–159; BP diastolic 52–101; PULSE 116
[2024-11-21 06:17] LABS: Urine Character Slightly Cloudy (Clear)
[2024-11-21 06:41] LABS: Urine Red Blood Cell None Seen /HPF (0-2); Urine White Cell 50-60 /HPF (0-5)
--- NOTE | 2024-11-21 07:11 | W.PN.HOSP.TC ---
Addendum entered and electronically signed by Po Morrison MD 11/21/24 22:38:
Attending Addendum-
I saw and evaluated the patient. I reviewed the resident�s note and agree with findings and plan as documented in the resident�s note. Sub: Patient with high pitched voice making more sense today. follwoing commands. no complaints, Full 12 point ROS
reviewed and negative except as documented Exam: Vitals reviewed in chart GEN-NAD Heart RRR Lungs clear abd soft LE no edema Neuro AAO x 0 follows commands intermittently Skin moist black in place draining cloudy urine
Plan:
#Syncopal episodes with recurrent hypotension
- h/o TBI s/p fall
-EKG personally reviewed-NSR with occasional PVCs
-Cardiology consulted- appreciate input
-Monitor on telemetry
-TSH, cortisol appropriate
-2d echo and carotid u/s - < 50% sten B/L, ECHO EF Normal left ventricular size, wall thickness and systolic function. No regional wall motion abnormalities are seen. valves WNL
-prn midodrine
-orthostatic likely
-improved s/p IVF, possibly dysautonomia
# Hypothermia-
- resolved
- r/o infection- repeat UA
- josé luis hugger prn
#Urinary Retention
- reinsert black failed TOV
- start flomax
# UTI
-start Rocephin
-urine cx - P
#Chronic wounds / Coccyx stage 1 pressure ulcer POA
-cont wound care
#Alzheimer's dementia
-h/o aggressive and combative behaviors
-History of TBI
-PT/OT/ST appreciated
-Continue home quetiapine
-end stage poor prognosis
#Essential hypertension
-Hold lisinopril
#Moderate PCM- encourage PO
DVT prophylaxis SCDs
CODE STATUS DNR
Dispo just DC'd from [facility] PT rec HOME DC when urine cx results
Time spent coordinating care, review of plan of care with resident, personally reviewed records in EMR, med rec, consults, notes, labs, radiology, d/w nursing � 51 mins
Original Note:
Today's Communication/Plan
-
- start IV ceftriaxone for possible UTI
- wound care for skin wounds
Assessment / Plan
Assessment / Plan
Assessment/plan
79 yo M PMH Alzheimer's dementia, TBI, HTN who presented with a syncopal episode. Per daughter, the patient also has experienced multiple episodes of hypotension requiring EMS and hospital admissions over the past months.
# Concern for UTI
# Urinary retention
- + luekocyte esterase, - nitrites, + WBCs, many yeast, few bacteria
- patient is poor historian but repeatedly says not to examine pelvic region and is experiencing urinary retention
- required two consecutive straight cath
- was diagnosed with UTI but culture did not grow an organism, empirically treated with cefdinir (despite chart listed allergy of ceftriaxone) and tolerated it.
- tamsulosin
- start IV ceftriaxone
#Syncopal episodes with recurrent hypotension
- ddx: cardiogenic (rhythm vs structural), neural-mediated, orthostatic, idiopathic
-EKG upon presentation NSR with occasional PVCs
-TSH, cortisol within normal limits
- PT note reports a BP drop upon sitting and standing which is c/w orthostatics
- However, echocardiogram and carotid ultrasound were within normal limits
- Monitor on telemetry
- workup thus far has not revealed a clear etiology for syncope and recurrent hypotension
- daughter reports that patient has been taking lisinopril for > 15 years
#Alzheimer's dementia
- AOx1
-Aggressive and combative behaviors at the last hospitalization
-History of TBI
-PT/OT/ST
-Continue home quetiapine
#Hypothermia - resolved
- temperature has normalized without using bear hugger
#Chronic wounds
Location, type and further characteristics are described as follows: 'dry skin R heel, blanchable red heels. Coccyx stage 1 pressure injury. R back/flank scattered red areas with some dried blisters and a broken dry blister on his lower anterior
chest. R hand, R forearm skin tears. Small scabbed abrasions L leg and L thigh, L elbow/forearm.'
-noted on right upper back and right posterior gluteal region
- etiology of wounds are unclear but may be suspected due to old age, however, other etiologies may be more formally evaluated in an outpatient setting with dermatology follow-up on discharge
- wound care following
#Essential hypertension
-Hold lisinopril
- Esperanza, daughter, confirms that he was taking lisinopril as outpatient. If he is recurrently hypotensive, consider d/c lisinopril upon discharge
# suspected Moderate protein calorie malnutrition
- per nutrition consult, reported weight loss and nutrition focused physical assessment point towards moderate protein calorie malnutrition
DVT prophylaxis SCDs
CODE STATUS DNR
Disposition: PT/case management working on setting up home health, possible discharge 11/22/2024
Conversation with daughter Esperanza, on 11/21/2024 at approximately 18:00: she is extremely tearful and asking again about what to do in the event her father passes out again at home. I mentioned that since she is power of personal injury attorney, the decisions
regarding her father's care are with her. She expressed that she does not want to be responsible for her father's . She is also asking about the etiology of what is going on with her father.
My response was, 'My supervising doctor and our team believe that this is most likely a worsening of his dementia, given that he experienced a significant traumatic injury to the brain several years ago. However, we can't say for sure that his
symptoms are entirely because of dementia either. His symptoms when they occur can be because of many reasons, including an issue with the heart. But the battery of tests that were done in the ED and in the hospital did not show that there was a
problem with the heart. So, while we are most concerned about a worsening of the dementia, we can't say for certainty that his symptoms are entirely because of dementia. I hear you that not having a clear definitive answer can be frustrating.'
In the call, I also mentioned that I would f/u social work 11/22 morning to coordinate logistics. Esperanza is willing to take her father home on 11/22, if he is medically ready to be discharged. She told me that she has visiting nurses who will be
visiting on tuesday, 11/24. Esperanza expressed that she does not know how to straight cath her father and does not know how to handle a black, if he were to go home with one (as of 11/22 pm, thepatient does not have a black).
We will follow-up with social work/CM on 11/22/2024.
Anticipated Discharge: 24 - 48 hours
Subjective/Interval History
-
Date of Service: November 21, 2024
temperature is fine, normalized without using bear hugger
straight cath'd twice 5am, 400mL but he doesn't produce that much urine
Objective Data
-
Labs:
Laboratory Results
11/21/24
06:53
WBC Pending
Hgb Pending
Hct Pending
Plt Count Pending
Sodium Pending
Potassium Pending
Chloride Pending
Carbon Dioxide Pending
BUN Pending
Creatinine Pending
Glucose Pending
Calcium Pending
WBC 5.5
Hgb 12.6
Plt 216
Na 137
K 3.8
Cl 110
Cr 0.8
UA
color: henok
clarity: cloudy
leukocyte esterase 2+
WBC 50-60
Few bacteria
Many urine yeast
Few squamous epithelial cells
Vital Signs:
Vital Signs
Temp Pulse Resp BP Pulse Ox
97.7 F 98 20 159/101 99
11/21/24 03:00 11/21/24 03:00 11/21/24 03:00 11/21/24 03:00 11/21/24 03:00
I&O
11/20/24 11/21/24 11/22/24
06:59 06:59 06:59
Intake Total 820 / 820 240 / 240
Output Total 400 / 400 925 / 925
Balance 420 / 420 -685 / -685
Review of Systems
-
Unable to obtain full review of systems at this time due to: Dementia
Physical Exam
-
General: Other (unable to complete a full physical exam because patient refused )
Cardiac: Regular Rhythm and Other (no murmurs on my exam)
GI: Other (some tenseness of abdomen)
Neuro: Other (AOx1)
[2024-11-21 07:28] LABS: Hematocrit 37.6 % (39.0-52.0); Hemoglobin 12.6 g/dL (13.0-18.0); Mean Corp Hgb Conc. 33.5 g/dL (33.0-37.0); Mean Corpuscular Volume 85.3 fL (80.0-94.0); Platelet Count 216 10^3/uL (130-400); Red Cell Dist. Width 13.5 % (11.5-14.5)
[2024-11-21 08:07] LABS: Blood Urea Nitrogen 10 mg/dl (9-20); Calcium 9.3 mg/dl (8.4-10.2); Carbon Dioxide 23 mmol/L (22-30); Chloride 110 mmol/L (98-107); Estimated Creatinine Clearance 70 ml/min; Glucose 94 mg/dl (70-99); Potassium 3.8 mmol/L (3.5-5.1); Sodium 137 mmol/L (135-145); eGFR > 60.00
[2024-11-21] MEDS: SEROQUEL PO ×2 (08:32→08:39)
[2024-11-21] MEDS: FLOMAX PO ×2 (08:32→08:40)
[2024-11-21] MEDS: FLOMAX 0.4 MG PO (10:56)
[2024-11-21] MEDS: SEROQUEL 50 MG PO (10:56)
--- NOTE | 2024-11-21 12:56 | CM ---
Patient seen at bedside
spoke with daughter Esperanza
per nursing patient needing strait cath/bladder scan
Referral in [facility] for [facility]
patient has private caregiver
PLAN: home with [facility] when stable
Fax #: [phone]
[2024-11-21] MEDS: SEROQUEL 75 MG PO ×2 (13:46→21:06)
[2024-11-21] MEDS: STERILE WATER FOR INJECTION 10 ML IV (15:58)
[2024-11-21] MEDS: ROCEPHIN 1000 MG IV (15:59)
[2024-11-21] MEDS: FLUSH (NSS) 2 FLUSH IV (16:01)
[2024-11-22] VITALS (7 sets, daily range): BP systolic 102–148; BP diastolic 70–89
[2024-11-22 07:04] LABS: Hematocrit 35.7 % (39.0-52.0); Hemoglobin 11.9 g/dL (13.0-18.0); Mean Corp Hgb Conc. 33.3 g/dL (33.0-37.0); Mean Corpuscular Volume 85.0 fL (80.0-94.0); Platelet Count 193 10^3/uL (130-400); Red Cell Dist. Width 13.5 % (11.5-14.5)
--- NOTE | 2024-11-22 07:11 | W.PN.HOSP.TC ---
Addendum entered and electronically signed by Po Morrison MD 11/22/24 21:27:
Attending Addendum-
I saw and evaluated the patient. I reviewed the resident�s note and agree with findings and plan as documented in the resident�s note. Sub: Patient pleasantly demented, no compalints. Seems fatigued. Seen with daughter present. . following commands
with significant prompting. Full 12 point ROS reviewed and negative except as documented Exam: Vitals reviewed in chart GEN-NAD Heart RRR Lungs clear abd soft LE no edema Neuro AAO x 0 follows commands intermittently Skin moist black in place
draining clear yellow urine
Plan:
#Syncopal episodes with recurrent hypotension
- h/o TBI s/p fall
- EKG personally reviewed-NSR with occasional PVCs
- Cardiology consulted- appreciate input
- Monitor on telemetry
- TSH, cortisol appropriate
- 2d echo and carotid u/s - < 50% sten B/L, ECHO EF Normal left ventricular size, wall thickness and systolic function. No regional wall motion abnormalities are seen. valves WNL
- prn midodrine
- improved s/p IVF, likely autonomic dysfunction- fall precautions
# Hypothermia-
- resolved
- josé luis hugger prn
#Urinary Retention
- reinsert black failed TOV
- cont flomax
# UTI
-cont Rocephin
-urine cx - 50k do not treat assympto
-DC Rocephin
-cont close observation
#Chronic wounds / Coccyx stage 1 pressure ulcer POA
-cont wound care
#Alzheimer's dementia
-h/o aggressive and combative behaviors
-History of TBI
-PT/OT/ST appreciated
-Continue home quetiapine
-end stage poor prognosis
#Essential hypertension
-Hold lisinopril
#Moderate PCM- encourage PO
DVT prophylaxis SCDs
CODE STATUS DNR
Dispo just DC'd from [facility], repeat PT eval suggesting SNF- d/w POA ok with DC in am
Time spent coordinating care, review of plan of care with resident, personally reviewed records in EMR, med rec, consults, notes, labs, radiology, d/w nursing POA at great length and CM � 52 mins
Original Note:
Today's Communication/Plan
-
- continue IV ceftriaxone
- place Black catheter
- topical antifungal
- PT/OT to evaluate for SNF
Assessment / Plan
Assessment / Plan
Assessment/plan
79 yo M PMH Alzheimer's dementia, TBI, HTN who presented with a syncopal episode. Per daughter, the patient also has experienced multiple episodes of hypotension requiring EMS and hospital admissions over the past months.
# Concern for UTI
# Urinary retention
- urine culture grew yeast
- physical exam n/f redness around penis/scrotum
- continues to require straight catheterization, plan for Black today
- on tamsulosin
- continue IV ceftriaxone 1g q24h (DAY 2 today); anticipate 3 day course
#Syncopal episodes with recurrent hypotension
- ddx: cardiogenic (rhythm vs structural), neural-mediated, orthostatic, idiopathic
-EKG upon presentation NSR with occasional PVCs
-TSH, cortisol within normal limits
- PT note reports a BP drop upon sitting and standing which is c/w orthostatics
- However, echocardiogram and carotid ultrasound were within normal limits
- Monitor on telemetry
- workup thus far has not revealed a clear etiology for syncope and recurrent hypotension
- daughter reports that patient has been taking lisinopril for > 15 years
#Alzheimer's dementia
- AOx1
-Aggressive and combative behaviors at the last hospitalization
-History of TBI
-PT/OT/ST
-Continue home quetiapine
#Chronic wounds
Location, type and further characteristics are described as follows: 'dry skin R heel, blanchable red heels. Coccyx stage 1 pressure injury. R back/flank scattered red areas with some dried blisters and a broken dry blister on his lower anterior
chest. R hand, R forearm skin tears. Small scabbed abrasions L leg and L thigh, L elbow/forearm.'
-noted on right upper back and right posterior gluteal region
- etiology of wounds are unclear but may be suspected due to old age, however, other etiologies may be more formally evaluated in an outpatient setting with dermatology follow-up on discharge
- wound care following
#Essential hypertension
-Hold lisinopril
- Esperanza, daughter, confirms that he was taking lisinopril as outpatient. If he is recurrently hypotensive, consider d/c lisinopril upon discharge
# suspected Moderate protein calorie malnutrition
- per nutrition consult, reported weight loss and nutrition focused physical assessment point towards moderate protein calorie malnutrition
DVT prophylaxis SCDs
CODE STATUS DNR
Medical Power of Material Handler Loader is with daughterEsperanza
Disposition: per Dr. Patiño's discussion with daughter at bedside, she is okay with him going to [facility], [facility]. PT/OT evaluating for SNF today; likely discharge tomorrow 11/23/2024
Anticipated Discharge: 24 - 48 hours
Subjective/Interval History
-
Date of Service: November 22, 2024
straight cath'd 425 mL around midnight
has not been going to bathroom otherwise; is on tamsulosin
Objective Data
-
Labs:
Laboratory Results
11/22/24
06:41
WBC 5.5
Hgb 11.9 L
Hct 35.7 L
Plt Count 193
Sodium Pending
Potassium Pending
Chloride Pending
Carbon Dioxide Pending
BUN Pending
Creatinine Pending
Glucose Pending
Calcium Pending
Eelctrolytes are within normal limits
straight catheterization overnight 1x, 425 mL
urine culture grew yeast
Vital Signs:
Vital Signs
Temp Pulse Resp BP Pulse Ox
98.0 F 65 16 148/80 95
11/22/24 03:03 11/22/24 03:03 11/22/24 03:03 11/22/24 03:03 11/22/24 03:03
I&O
11/21/24 11/22/24 11/23/24
06:59 06:59 06:59
Intake Total 240 / 240
Output Total 925 / 925 425 / 425
Balance -685 / -685 -425 / -425
Review of Systems
-
Unable to obtain full review of systems at this time due to: Dementia
Physical Exam
-
HEENT: Normocephalic
Respiratory: Clear to Auscultation
Cardiac: Regular Rhythm and Other (no murmurs on my exam)
GI: Other (some tenseness of abdomen but nontender;)
Genito-urinary: Other ( no suprapubic tenderness; nurse reports redness around penis/scrotum)
Musculoskeletal: No Edema
Skin: Warm, Dry and Other (wounds on back, some rash along hands)
Neuro: Other (AOx1)
Psych: Calm (this morning, calm)
[2024-11-22 07:38] LABS: Blood Urea Nitrogen 10 mg/dl (9-20); Calcium 9.3 mg/dl (8.4-10.2); Carbon Dioxide 21 mmol/L (22-30); Chloride 109 mmol/L (98-107); Estimated Creatinine Clearance 70 ml/min; Glucose 92 mg/dl (70-99); Potassium 3.7 mmol/L (3.5-5.1); Sodium 137 mmol/L (135-145); eGFR > 60.00
[2024-11-22] MEDS: SEROQUEL 50 MG PO (08:53)
[2024-11-22] MEDS: FLOMAX 0.4 MG PO (08:53)
[2024-11-22] MEDS: SEROQUEL 75 MG PO (13:02)
--- NOTE | 2024-11-22 15:19 | CM ---
Initial dc plan [facility] .
Requested updated PT OT today . Evals indicate SNF .
signal system testing maintainer was in room with patient . Esperazna dgt was not.
LM with dgt Esperanza regarding PT OT evals now indicate SNF .
Esperanza no call back.Will need to ask which SNF she wants.
Pt will need SNF and Authorization .
PLAn Needs SNF located and auth
[2024-11-22] MEDS: STERILE WATER FOR INJECTION 10 ML IV (15:35)
[2024-11-22] MEDS: ROCEPHIN 1000 MG IV (15:35)
[2024-11-22] MEDS: DESENEX/MITRAZOL/ZEASORB 1 APPLIC TOPICAL ×2 (17:19→21:31)
[2024-11-22] MEDS: SEROQUEL PO ×2 (21:30→21:33)
[2024-11-23 03:07] VITALS: BP 131/77
[2024-11-23 07:00] VITALS: BP 120/86
--- NOTE | 2024-11-23 07:11 | W.PN.HOSP.TC ---
Addendum entered and electronically signed by Po Morrison MD 11/23/24 20:41:
Attending Addendum-
I saw and evaluated the patient. I reviewed the resident�s note and agree with findings and plan as documented in the resident�s note. Sub: Patient sleeping on entry to room, easily arousable. no complaints. Seen with with and CG present.
following commands with significant prompting. Full 12 point ROS reviewed and negative except as documented Exam: Vitals reviewed in chart GEN-NAD Heart RRR Lungs clear abd soft LE no edema Neuro AAO x 0 follows commands intermittently Skin moist
black in place draining clear yellow urine
Plan:
#Syncopal episodes with recurrent hypotension
- h/o TBI s/p fall
- Cardiology consulted- appreciate input
- Monitor on telemetry
- TSH, cortisol- appropriate
- 2d echo and carotid u/s - < 50% sten B/L, ECHO EF Normal left ventricular size, wall thickness and systolic function. No regional wall motion abnormalities are seen. valves WNL
- prn midodrine
- improved s/p IVF, likely autonomic dysfunction- fall precautions
# Hypothermia-
- resolved
#Urinary Retention
- reinserted black failed TOV
- cont flomax
#Chronic wounds / Coccyx stage 1 pressure ulcer POA
-cont wound care
#Alzheimer's dementia
-h/o aggressive and combative behaviors
-History of TBI
-PT/OT/ST appreciated
-Continue home quetiapine
-end stage poor prognosis
#Essential hypertension
-Hold lisinopril
#Moderate PCM- encourage PO
DVT prophylaxis SCDs
CODE STATUS DNR
Dispo just DC'd from [facility], repeat PT eval suggesting SNF- d/w POA ok with dc to SNF-awaiting insurance auth
Time spent coordinating care, review of plan of care with resident, personally reviewed records in EMR, med rec, consults, notes, labs, radiology, d/w nursing and and CM � 35 mins
Original Note:
Today's Communication/Plan
-
- f/u case management re disposition
- black catheter in place
- NS IV fluids
Assessment / Plan
Assessment / Plan
Assessment/plan
79 yo M PMH Alzheimer's dementia, TBI, HTN who presented with a syncopal episode. Per daughter, the patient also has experienced multiple episodes of hypotension requiring EMS and hospital admissions over the past months.
#Syncopal episodes with recurrent hypotension
-EKG upon presentation NSR with occasional PVCs
- workup thus far has not revealed a clear etiology for syncope and recurrent hypotension
- most likely etiology is progression of dementia
- f/u PT/OT recs
- today's physical exam n/f possible volume down, IV fluids NS 100 cc/hr ordered
#Alzheimer's dementia
- AOx1
-Aggressive and combative behaviors at the last hospitalization
-History of TBI
-Continue home quetiapine
- his condition is most likely demenita progression
# Urinary retention
- Black catheter in place
- UA grew yeast, receiving miconazole topical
- d/c ceftriaxone
#Chronic wounds
Location, type and further characteristics are described as follows: 'dry skin R heel, blanchable red heels. Coccyx stage 1 pressure injury. R back/flank scattered red areas with some dried blisters and a broken dry blister on his lower anterior
chest. R hand, R forearm skin tears. Small scabbed abrasions L leg and L thigh, L elbow/forearm.'
-noted on right upper back and right posterior gluteal region
- etiology of wounds are unclear but may be suspected due to old age, however, other etiologies may be more formally evaluated in an outpatient setting with dermatology follow-up on discharge
- wound care following
#Essential hypertension
-Hold lisinopril
- Esperanza, daughter, confirms that he was taking lisinopril as outpatient. If he is recurrently hypotensive, consider d/c lisinopril upon discharge
# suspected Moderate protein calorie malnutrition
- per nutrition consult, reported weight loss and nutrition focused physical assessment point towards moderate protein calorie malnutrition
DVT prophylaxis SCDs
CODE STATUS DNR
Medical Power of Nursing Associate is with daughter, Esperanza
Disposition: PT rec SNF on 11/22, CM aware
Anticipated Discharge: 24 - 48 hours
Subjective/Interval History
-
Date of Service: November 23, 2024
No overnight events
This morning, he says he's doing well.
Black catheter is in.
Objective Data
-
Labs:
Laboratory Results
11/23/24
06:32
WBC Pending
Hgb Pending
Hct Pending
Plt Count Pending
Sodium Pending
Potassium Pending
Chloride Pending
Carbon Dioxide Pending
BUN Pending
Creatinine Pending
Glucose Pending
Calcium Pending
CBC and electrolyes are within normal limits
Vital Signs:
Vital Signs
Temp Pulse Resp BP Pulse Ox
97.6 F 97 16 131/77 100
11/23/24 03:07 11/23/24 03:07 11/23/24 03:07 11/23/24 03:07 11/23/24 03:07
I&O
11/22/24 11/23/24 11/24/24
06:59 06:59 06:59
Intake Total 360 / 360
Output Total 425 / 425 325 / 325
Balance -425 / -425 35 / 35
Review of Systems
-
Unable to obtain full review of systems at this time due to: Dementia
Physical Exam
-
HEENT: Normocephalic
Respiratory: Clear to Auscultation
Cardiac: Regular Rhythm and Other (no murmurs on my exam)
GI: Other (some tenseness of abdomen but nontender;)
Genito-urinary: Other ( no suprapubic tenderness; nurse reports redness around penis/scrotum)
Musculoskeletal: No Edema and Other (appears volume down )
Skin: Warm, Dry and Other (wounds on back, some rash along hands)
Neuro: Other (AOx1)
Psych: Calm (this morning, calm)
[2024-11-23 07:28] LABS: Hematocrit 38.0 % (39.0-52.0); Hemoglobin 12.9 g/dL (13.0-18.0); Mean Corp Hgb Conc. 33.9 g/dL (33.0-37.0); Mean Corpuscular Volume 84.1 fL (80.0-94.0); Platelet Count 229 10^3/uL (130-400); Red Cell Dist. Width 13.7 % (11.5-14.5)
[2024-11-23 07:32] LABS: Blood Urea Nitrogen 12 mg/dl (9-20); Calcium 9.9 mg/dl (8.4-10.2); Carbon Dioxide 24 mmol/L (22-30); Chloride 106 mmol/L (98-107); Estimated Creatinine Clearance 62 ml/min; Glucose 93 mg/dl (70-99); Potassium 4.0 mmol/L (3.5-5.1); Sodium 137 mmol/L (135-145); eGFR > 60.00
--- NOTE | 2024-11-23 09:20 | CM ---
Patient chart reviewed
Spoke with daughter Esperanza
PT/OT 11/22 rec SNF
Esperanza prefer [facility]-referrals entered in [facility]
Discussed with Esperanza medicare.gov site & she will get back to with additional resources
Explained process will need to secure a bed & then get ins auth
PLAN: SNF pending acceptance/bed availability, will need ins auth
[2024-11-23] MEDS: SEROQUEL 50 MG PO (09:33)
[2024-11-23] MEDS: FLOMAX 0.4 MG PO (09:34)
[2024-11-23] MEDS: DESENEX/MITRAZOL/ZEASORB 1 APPLIC TOPICAL ×2 (09:35→21:40)
[2024-11-23 11:00] VITALS: BP 116/76
[2024-11-23] MEDS: SEROQUEL 75 MG PO (12:29)
[2024-11-23 15:00] VITALS: BP 109/66
[2024-11-23] MEDS: NSS 1000 IV (16:30)
[2024-11-23] MEDS: TYLENOL 650 MG PO (18:04)
[2024-11-23] MEDS: SENOKOT-S 1 TABLET PO (18:04)
[2024-11-23 19:52] VITALS: BP 109/87
--- NOTE | 2024-11-23 20:35 | PTCARENOTE ---
Assumed care of patient from previous RN. Patient with HR 120s-130s since start of this shift, appears he has had intermittent episodes of tachycardia throughout the day as well. Patient resting in bed, appears to be comfortable at this time. No
PRNs available, no scheduled medications, notified RADHA Sotomayor -- waiting on evaluation, no new interventions at this time.
[2024-11-23] MEDS: SEROQUEL PO ×2 (21:37→21:46)
--- NOTE | 2024-11-23 21:57 | PTCARENOTE ---
Patient refusing oral medications at this time, second attempt at administering PO Seroquel - patient is swatting at this RNs hands, spitting at this RN and becoming agitated with attempts. See MAR.
[2024-11-23 23:15] VITALS: BP 101/81
[2024-11-23] MEDS: NSS 500 IV (23:27)
[2024-11-24] VITALS (8 sets, daily range): BP systolic 101–149; BP diastolic 67–90; PULSE 111–145
[2024-11-24] MEDS: NSS 1000 IV ×3 (02:38→20:53)
--- NOTE | 2024-11-24 07:13 | W.PN.HOSP.TC ---
Addendum entered and electronically signed by Roel Tai MD 11/24/24 12:44:
Attending addendum:
I saw and evaluated the patient. I reviewed the resident�s note and agree with findings and plan as documented in the resident�s note.
Patient is very confused and sleeping during conversation, cannot provide interval history.
Physical exam:
GENERAL : Awake but not fully oriented
HEENT: Nonicteric sclerae, PERRLA, EOMI. Oropharynx clear. Moist mucous membranes. Conjunctivae appear well perfused.
CHEST: Chest wall is nontender.
HEART: Regular rate and rhythm without murmurs.
LUNGS: Bibasilar rales.
ABDOMEN: Soft, positive bowel sounds, nontender, no organomegaly.
RECTAL: Deferred.
SKIN: No rash, no excessive bruising, petechiae, or purpura.
NEUROLOGIC: Sleepy.
Assessment/plan:
Syncopal event.
Appreciate cardiac input.
Patient with multiple PVCs on pss delivery professional, consider adding low-dose beta-lupe
Hold lisinopril for now
Black catheter
Total time spent on today's encounter was 65 minutes which included time spent in counseling the patient/family regarding diagnosis and treatment plan as listed above, goals of care, and symptom management. Case was discussed with nursing staff,
specialists, and care coordinators/case management. All labs and imaging personally reviewed by me. Remainder the time spent in detailed review of previous records, lab data, imaging, and other medical provider documentation.
Original Note:
Today's Communication/Plan
-
- monitor VS
- continue IV fluids
- black catheter in place; continue miconazole topical
Assessment / Plan
Assessment / Plan
Assessment/plan
79 yo M PMH Alzheimer's dementia, TBI, HTN who presented with a syncopal episode. Per daughter, the patient also has experienced multiple episodes of hypotension requiring EMS and hospital admissions over the past months.
#Syncopal episodes with recurrent hypotension
-EKG upon presentation NSR with occasional PVCs
- workup thus far has not revealed a clear etiology for syncope and recurrent hypotension
- most likely etiology is progression of dementia
- f/u PT/OT recs
- receiving IV fluids NS 100 cc/hr
# Tachycardia
- HR in 100s
- monitor discloses sinus tachycardia with occasional PVCs
- Medication review reveals quetiapine has not been administered 08 PM dose, which may to possible unease in the patient overnight
- patient denies pain but is not a reliable historian
- patient was fidgeting this morning during my interview
- continue to monitor VS
#Alzheimer's dementia
- AOx1
-Aggressive and combative behaviors at the last hospitalization
-History of TBI
-Continue home quetiapine
- his condition is most likely dementia progression
# Urinary retention
- Black catheter in place; 300mls
- UA grew yeast, receiving miconazole topical
#Chronic wounds
Location, type and further characteristics are described as follows: 'dry skin R heel, blanchable red heels. Coccyx stage 1 pressure injury. R back/flank scattered red areas with some dried blisters and a broken dry blister on his lower anterior
chest. R hand, R forearm skin tears. Small scabbed abrasions L leg and L thigh, L elbow/forearm.'
-noted on right upper back and right posterior gluteal region
- etiology of wounds are unclear but may be suspected due to old age, however, other etiologies may be more formally evaluated in an outpatient setting with dermatology follow-up on discharge
- wound care following
#Essential hypertension
-Hold lisinopril
- Esperanza, daughter, confirms that he was taking lisinopril as outpatient. If he is recurrently hypotensive, consider d/c lisinopril upon discharge
# suspected Moderate protein calorie malnutrition
- per nutrition consult, reported weight loss and nutrition focused physical assessment point towards moderate protein calorie malnutrition
DVT prophylaxis SCDs
CODE STATUS DNR
Medical Power of [employer] L[employer] is with daughter, Esperanza
Disposition: PT rec SNF on 11/22, CM aware
Anticipated Discharge: 24 - 48 hours
Subjective/Interval History
-
Date of Service: November 24, 2024
feels okay this morning
nurse reports that he has been tachycardic in 100s overnight
Objective Data
-
Labs:
Laboratory Results
11/24/24
06:00
WBC Pending
Hgb Pending
Hct Pending
Plt Count Pending
Sodium Pending
Potassium Pending
Chloride Pending
Carbon Dioxide Pending
BUN Pending
Creatinine Pending
Glucose Pending
Calcium Pending
Vital Signs:
Vital Signs
Temp Pulse Resp BP Pulse Ox
97.6 F 107 16 132/81 98
11/24/24 03:00 11/24/24 03:00 11/24/24 03:00 11/24/24 03:00 11/24/24 03:00
tachcyardia at 100-110s
monitor reveals PVCs
I&O
11/23/24 11/24/24 11/25/24
06:59 06:59 06:59
Intake Total 360 / 360 720 / 720
Output Total 325 / 325 300 / 300
Balance 35 / 35 420 / 420
Physical Exam
-
HEENT: Normocephalic
Respiratory: Clear to Auscultation
Cardiac: Regular Rhythm and Other (no murmurs on my exam)
GI: Other (some tenseness of abdomen but nontender;)
Genito-urinary: Other ( no suprapubic tenderness)
Musculoskeletal: No Edema and Other (appears volume down )
Skin: Warm, Dry and Other (wounds on back, some rash along hands)
Neuro: Other (AOx1)
Psych: Calm (this morning, calm)
[2024-11-24] MEDS: DESENEX/MITRAZOL/ZEASORB 1 APPLIC TOPICAL ×2 (08:49→20:53)
[2024-11-24] MEDS: SEROQUEL 50 MG PO (08:49)
[2024-11-24] MEDS: FLOMAX 0.4 MG PO (08:49)
[2024-11-24 09:44] LABS: Hematocrit 37.0 % (39.0-52.0); Hemoglobin 12.4 g/dL (13.0-18.0); Mean Corp Hgb Conc. 33.5 g/dL (33.0-37.0); Mean Corpuscular Volume 85.3 fL (80.0-94.0); Platelet Count 210 10^3/uL (130-400); Red Cell Dist. Width 13.7 % (11.5-14.5)
[2024-11-24 10:10] LABS: Blood Urea Nitrogen 12 mg/dl (9-20); Calcium 9.5 mg/dl (8.4-10.2); Carbon Dioxide 23 mmol/L (22-30); Chloride 108 mmol/L (98-107); Estimated Creatinine Clearance 70 ml/min; Glucose 90 mg/dl (70-99); Potassium 4.0 mmol/L (3.5-5.1); Sodium 138 mmol/L (135-145); eGFR > 60.00
[2024-11-24] MEDS: SEROQUEL 75 MG PO ×2 (12:35→21:06)
[2024-11-24] MEDS: BENADRYL 25 MG PO ×2 (14:39→21:06)
--- NOTE | 2024-11-24 14:59 | PTCARENOTE ---
His rash that he has had has spread. It is worsening and increasing and now bothersome for the patient. it is very itchy, All over his body but mainly leg he has various stages of the rash. the family say it starts like a pink raised area, turns
into a vesicle filled with fluid and then crusts over. There are currently new vesicles and older vesicle all over chest legs and foot, bottom of the foot. on the bottom of the right foot is a large slightly raised pinksh warm rash with intermittent
new vesicles filled with fluid.(doubled in size in last hour) he is using he left big toe to itch it and wont stop ittching. His legs are filled with these scabbed areas. the family stated that the scabbed areas are ALL vesicles that he scratched
open with his fingers. MD aware benadryl ordered and given. valtrex given for 'we ordered acyclovir 400mg PO tid for 5 days to empirically treat hsv, if it is hsv.' In case, i alerted charge nurse and we are looking for a private room for him.
[2024-11-24] MEDS: ZOVIRAX 400 MG PO ×2 (17:53→21:01)
--- NOTE | 2024-11-24 19:59 | PTCARENOTE ---
Pt arrived to [address] [place]. Pt confused, AAOx self. MI'KMAQ, anxious and forgetful. 16fr black in place draining yellow urine. Placed on tele monitor, NSR w occasional PVCs/ Sinus tachy. IVF initiated per order. Offered to help with dinner but pt refused.
Ate 1 scoop of mashed potatoes. Waffle boots in place. Kerlix wrap on R ankle and R knee c/d/i. Foam on R hand and R fa c/d/i. Pt took PM meds crushed in apple sauce. PRN po benedryl given at 2105 for pt increase in itching. Pt oriented to call
corrales, bed in lowest position, bedalarm in place.
[2024-11-24] MEDS: NSS IV (22:51)
--- NOTE | 2024-11-25 03:07 | PTCARENOTE ---
B/l heel foams in place c/d/i, R hand and R fa foam replaced and dated. Sacral preventative placed and dated.
[2024-11-25 03:13] VITALS: BP 138/88
[2024-11-25] MEDS: NSS 1000 IV ×2 (05:43→17:39)
[2024-11-25 07:08] LABS: Hematocrit 33.9 % (39.0-52.0); Hemoglobin 11.4 g/dL (13.0-18.0); Mean Corp Hgb Conc. 33.6 g/dL (33.0-37.0); Mean Corpuscular Volume 85.2 fL (80.0-94.0); Platelet Count 188 10^3/uL (130-400); Red Cell Dist. Width 13.7 % (11.5-14.5)
--- NOTE | 2024-11-25 07:09 | W.PN.HOSP.TC ---
Addendum entered and electronically signed by Roel Tai MD 11/25/24 10:52:
Attending�addendum:
I�saw�and�evaluated�the�patient.�I�reviewed�the�resident�s�note�and�agree�with�findings�and�plan�as�documented�in�the�resident�s�note.��
�patient seen and examined at bedside, patient is more awake compared to yesterday.
Seen by infectious disease, Acyclovir discontinued.
Physical�exam:
GENERAL : Awake but not fully oriented
HEENT: Nonicteric sclerae, PERRLA, EOMI. Oropharynx clear. Moist mucous membranes. Conjunctivae appear well perfused.
CHEST: Chest wall is nontender.
HEART: Regular rate and rhythm without murmurs.
LUNGS: Bibasilar rales.
ABDOMEN: Soft, positive bowel sounds, nontender, no organomegaly.
RECTAL: Deferred.
SKIN: Maculopapular rash with back papule seen on right foot
NEUROLOGIC: Sleepy.
�
Assessment/plan:
�Syncopal event.
Appreciate cardiac input.
Patient with multiple PVCs on quality assurance monitor body, consider adding low-dose beta-lupe
Hold lisinopril for now
Zamora catheter
Skin rash, seen by infectious disease, discontinue ciclopirox, continue Benadryl.
Follow-up with rheumatology as OP.
�
Total�time�spent�on�today�s�encounter�was�65�minutes�which�included�time�spent�in�counseling�the�patient/family�regarding�diagnosis�and�treatment�plan�as�listed�above,�goals�of�care,�and�symptom�management.�Case�was�discussed�with�nursing�staff,�spec
ialists,�and�care�coordinators/case�management.�All�labs�and�imaging�personally�reviewed�by�me.�Remainder�the�time�spent�in�detailed�review�of�previous�records,�lab�data,�imaging,�and�other�medical�provider�documentation.
Original Note:
Today's Communication/Plan
-
- new maculopapular, blistering pruritic rash
- f/u ID recommendations
- for now, continue acyclovir (tid) and benadryl (prn)
Assessment / Plan
Assessment / Plan
Assessment/plan
79 yo M PMH Alzheimer's dementia, TBI, HTN who presented with a syncopal episode. Per daughter, the patient also has experienced multiple episodes of hypotension requiring EMS and hospital admissions over the past months.
# Blistering, maculopapular rash
- nurse reported possible vesicle, on exam yesterday, multiple papules/blisters/possible vesicles at different stages raised concern for HSV
- empiric acyclovir started yesterday at 400mg tid for 5 days
- benadryl 25mg q6h prn for symptomatic relief
- ddx for a new rash is broad: can include allergic reaction, infectious etiology, autoimmune skin condition (E.g. bullous pemphigoid, which was suggested by wound care team last week), drug reaction (recently was on ceftriaxone for 2 days)
- ID has been consulted
#Syncopal episodes with recurrent hypotension
-EKG upon presentation NSR with occasional PVCs
- workup thus far has not revealed a clear etiology for syncope and recurrent hypotension
- most likely etiology is progression of dementia
- case management working to place at SNF
# Tachycardia
- HR in 100s
- monitor showed occasionally sinus tachycardia with some PVCs
- could be attributed to pruritic rash
- monitor VS
#Alzheimer's dementia
- AOx1
-Aggressive and combative behaviors at the last hospitalization
-History of TBI
-Continue home quetiapine
- his condition is most likely dementia progression
# Urinary retention
- Zamora catheter in place; 250mL
- UA grew yeast, receiving miconazole topical bid
#Chronic wounds
Location, type and further characteristics are described as follows: 'dry skin R heel, blanchable red heels. Coccyx stage 1 pressure injury. R back/flank scattered red areas with some dried blisters and a broken dry blister on his lower anterior
chest. R hand, R forearm skin tears. Small scabbed abrasions L leg and L thigh, L elbow/forearm.'
-noted on right upper back and right posterior gluteal region
- etiology of wounds are unclear but may be suspected due to old age, however, other etiologies may be more formally evaluated in an outpatient setting with dermatology follow-up on discharge
- wound care following
#Essential hypertension
-Hold lisinopril
# suspected Moderate protein calorie malnutrition
- per nutrition consult, reported weight loss and nutrition focused physical assessment point towards moderate protein calorie malnutrition
DVT prophylaxis SCDs
CODE STATUS DNR
Medical Power of Nurse School is with daughter, Esperanza
Disposition: PT rec SNF on 11/22, CM aware
Anticipated Discharge: 24 - 48 hours
Subjective/Interval History
-
Date of Service: November 25, 2024
interim update: nurse notes a pruritic rash, maculopapular that enlarges into fluid-filled blisters
there was concern for HSV and he is currently on airborne precautions
this morning, he is scratching at the rash. There is large 2-3 inch fluid filled blister on plantar aspect of left foot.
Objective Data
-
Labs:
Laboratory Results
11/25/24
06:00
WBC 6.5
Hgb 11.4 L
Hct 33.9 L
Plt Count 188
Sodium Pending
Potassium Pending
Chloride Pending
Carbon Dioxide Pending
BUN Pending
Creatinine Pending
Glucose Pending
Calcium Pending
Vital Signs:
Vital Signs
Temp Pulse Resp BP Pulse Ox
96.8 F L 98 16 138/88 99
11/25/24 03:13 11/25/24 03:13 11/25/24 03:13 11/25/24 03:13 11/25/24 03:13
intermittently tachycardic to 100s
I&O
11/24/24 11/25/24 11/26/24
06:59 06:59 06:59
Intake Total 720 / 720 480 / 480
Output Total 300 / 300 650 / 650
Balance 420 / 420 -170 / -170
Review of Systems
-
Unable to obtain full review of systems at this time due to: Dementia
Physical Exam
-
HEENT: Normocephalic
Respiratory: Clear to Auscultation
Cardiac: Regular Rhythm and Other (no murmurs on my exam)
GI: Other (some tenseness of abdomen but nontender;)
Genito-urinary: Other ( no suprapubic tenderness)
Musculoskeletal: No Edema and Other (appears volume down )
Skin: Warm, Dry and Other (fluid filled blister on plantar of left foot, rash along lower extremity/thigh with maculopapular and some blisters)
Neuro: Other (AOx1)
Psych: Calm (this morning, calm)
[2024-11-25 07:25] LABS: Glucose - Point of Care 102 mg/dl (70-99)
[2024-11-25 07:29] LABS: Blood Urea Nitrogen 8 mg/dl (9-20); Calcium 8.7 mg/dl (8.4-10.2); Carbon Dioxide 22 mmol/L (22-30); Chloride 110 mmol/L (98-107); Estimated Creatinine Clearance 70 ml/min; Glucose 87 mg/dl (70-99); Potassium 3.8 mmol/L (3.5-5.1); Sodium 137 mmol/L (135-145); eGFR > 60.00
[2024-11-25 07:30] VITALS: BP 139/93
[2024-11-25] MEDS: ZOVIRAX 400 MG PO (08:15)
[2024-11-25] MEDS: FLOMAX 0.4 MG PO (08:15)
[2024-11-25] MEDS: SEROQUEL 50 MG PO (08:15)
[2024-11-25] MEDS: DESENEX/MITRAZOL/ZEASORB 1 APPLIC TOPICAL ×2 (08:17→19:59)
--- NOTE | 2024-11-25 10:09 | CON.ID ---
Consultation
-
Date/Time Consultation Requested: 11/25/2024 0827
Date/Time Consultation Performed: 11/25/2024 1009
Requesting Provider: Dr. Sanabria
Performing Provider: Dr. Garcia
Reason for Consultation: Lower extremity rash
Chief Complaint / Past History
History of Present Illness
Rob Marvin is an 79-year-old man with a significant past medical history of Alzheimer's dementia and TBI being evaluated at the request of Dr. Sanabria regarding lower extremity vesicles. History is obtained from chart review alone, as the
patient could not provide any significant history to me given underlying advanced dementia.
The patient presented to [facility] on 11/17/2024 after he was found unresponsive earlier that morning. According to reviewed history, the patient has had multiple syncopal episodes over the prior 3 years, and on the morning of admission, the
patient was sitting on the deck when he became unresponsive. EMS was called. Blood pressure was found to be low (70/40), and the patient was transported to the ER for further evaluation.
Since admission, the patient has developed a rash on the right foot plantar surface, and Infectious Diseases is asked to comment upon further evaluation and therapy. The patient has been started on empiric acyclovir, presumably for shingles.
At this time, no further history is available from the patient.
Past History
Additional Past Medical History:
Alzheimer's dementia
HTN
TBI
Allergy History:
amoxicillin Allergy (Verified 11/17/24 17:18)
Rash/swelling, itching
ciprofloxacin (From Cipro) Allergy (Verified 11/22/24 21:25)
Unknown
Medications Reviewed: Yes
Current Antibiotics:
Acyclovir 400 mg p.o. TID (d#2)
Review of Systems
Vital Signs
Temp Pulse Resp BP Pulse Ox
97.7 F 102 18 139/93 98
11/25/24 07:30 11/25/24 07:30 11/25/24 07:30 11/25/24 07:30 11/25/24 07:30
Physical Exam
Physical Exam
Constitutional: No Acute Distress, Comfortable, Chronically Ill and Non-toxic
Eyes: Sclera Anicteric
Oral: No Thrush and No Ulcers
Cardiovascular: S1/S2; Negative S3/S4
Pulmonary: Non Labored
Gastrointestinal: Soft, Non Tender, Non Distended and Normal Bowel Sounds
Genito-Urinary: Zamora and Clear Urine; Negative Turbid Urine or Hematuria
Extremities: Negative Edema or Cyanosis
Skin: Rash (right foot plantar area with clear superficial bullae. No sig surrounding erythema. See photo.)
Psychological: Calm
Lab / Diagnostic Study Results
11/25/24 06:00
11/25/24 06:00
Abs Immat Gran (auto) 0.1 10^3/uL (0-0.05) H 11/19/24 06:28
Absolute Neuts (auto) 2.4 10^3/uL (1.4-6.5) 11/19/24 06:28
Absolute Lymphs (auto) 1.2 10^3/uL (1.2-3.4) 11/19/24 06:28
Absolute Monos (auto) 0.5 10^3/uL (0.1-0.6) 11/19/24 06:28
Absolute Basos (auto) 0.0 10^3/uL (0-0.2) 11/19/24 06:28
Immature Gran % 1.0 % (0-0.5) H 11/19/24 06:28
Neutrophils % 50.6 % (42.2-75.2) 11/19/24 06:28
Lymphocytes % 24.6 % (20.5-51.1) 11/19/24 06:28
Monocytes % 9.3 % (1.7-9.3) 11/19/24 06:28
Eosinophils % 13.9 % (0-6) H 11/19/24 06:28
Basophils % 0.6 % (0-2) 11/19/24 06:28
Ur Squamous Epith Cells 3-5 /LPF (Few) 11/21/24 05:47
Microbiology Results
Micro:
11/21/24 05:47 Urine Culture - Final
Urine Yeast
11/17/24 13:53 Urine Culture - Final
Urine NO GROWTH
- Right foot -
Assessment / Plan
Right foot rash with bullae formation
- Not consistent with HSV or VZV.
- Possibly id reaction or contact dermatitis
Urinary retention with Zamora catheter
Syncope with recurrent hypotension
Alzheimer's dementia
Hx TBI
Recommendations:
No evidence of herpes virus infection (HSV or VZV) on physical exam. Vesicles not consistent with herpes virus infection
Discontinue further acyclovir. Discontinue contact isolation
May consider Dermatology evaluation
[2024-11-25 11:30] VITALS: BP 107/57
[2024-11-25] MEDS: SEROQUEL 75 MG PO ×2 (12:27→21:57)
[2024-11-25] MEDS: BENADRYL 25 MG PO (12:34)
[2024-11-25 15:30] VITALS: BP 123/71
[2024-11-25 19:00] VITALS: BP 115/74
[2024-11-25] MEDS: BENADRYL PO (20:00)
[2024-11-25] MEDS: TYLENOL 650 MG PO (20:15)
[2024-11-25 23:11] VITALS: BP 130/81
[2024-11-26] VITALS (8 sets, daily range): BP systolic 107–143; BP diastolic 57–90; PULSE 92
[2024-11-26] MEDS: NSS 1000 IV (03:25)
--- NOTE | 2024-11-26 07:08 | W.PN.HOSP.TC ---
Addendum entered and electronically signed by Po Morrison MD 11/26/24 23:06:
Attending Addendum-
I saw and evaluated the patient. I reviewed the resident�s note and agree with findings and plan as documented in the resident�s note. Sub: Patient alert pleasant no complaints. Seen with CG present states patient has rash and blister. 'hes gets
these all the time'. following commands with prompting. No fevers chills. Full 12 point ROS reviewed and negative except as documented Exam: Vitals reviewed in chart GEN-NAD Heart RRR Lungs clear abd soft LE no edema Neuro AAO x 0 follows commands
intermittently Skin RLE vesiculat rash with fluid filled blister present mac pa in back black in place draining clear yellow urine
Plan:
#Syncopal episodes with recurrent hypotension
- h/o TBI s/p fall
- Cardiology consulted- appreciate input
- Monitor on telemetry
- TSH, cortisol- appropriate
- 2d echo and carotid u/s - < 50% sten B/L, ECHO EF Normal left ventricular size, wall thickness and systolic function. No regional wall motion abnormalities are seen. valves WNL
- prn midodrine
- improved s/p IVF, likely autonomic dysfunction- fall precautions
# Hypothermia-
- resolved
#Urinary Retention
- reinserted black failed TO
- reattempt TOV
- cont flomax
#Chronic wounds / Coccyx stage 1 pressure ulcer POA
-cont wound care
# RLE sole rash
- unclear etiology
- try antifungal cream
#Alzheimer's dementia
-h/o aggressive and combative behaviors
-History of TBI
-PT/OT/ST appreciated
-Continue home quetiapine
-end stage poor prognosis
#Essential hypertension
-Hold lisinopril
#Moderate PCM- encourage PO
DVT prophylaxis SCDs
CODE STATUS DNR
Dispo just DC'd from [place], dc to [facility] in am
Time spent coordinating care, review of plan of care with resident, personally reviewed records in EMR, med rec, consults, notes, labs, radiology, d/w nursing CM � 51 mins
Original Note:
Today's Communication/Plan
-
- ID rec clotrimazole
- follow-up case management recommendations
Assessment / Plan
Assessment / Plan
Assessment/plan
79 yo M PMH Alzheimer's dementia, TBI, HTN who presented with a syncopal episode. Per daughter, the patient also has experienced multiple episodes of hypotension requiring EMS and hospital admissions over the past months.
#Syncopal episodes with recurrent hypotension
-EKG upon presentation NSR with occasional PVCs
- workup thus far has not revealed a clear etiology for syncope and recurrent hypotension
- most likely etiology is progression of dementia
- case management working to place at [facility]
# Bullae on right lower extremity
- ID was consulted, not consistent with HSV
- excoriation-like ribeiro on palms, are possibly from scratching, no bullae or large blisters on hands.
- benadryl 25mg q6h prn for symptomatic relief
- per ID, clotrimazole topical bid
- ID recommends follow-up dermatology outpatient
- to bring up on rounds 11/27: consider topical low-potency topoical steroids for additional symptom relief, e.g. hydrocortisone?
#Alzheimer's dementia
- AOx1
-Aggressive and combative behaviors at the last hospitalization
-History of TBI
-Continue home quetiapine
- his condition is most likely dementia progression
# Tachycardia
- HR occasionally in 100s
- monitor showed occasionally sinus tachycardia with some PVCs
- could be attributed to pruritic rash
- could be attributed to intermittent refusal of quetiapine
- EKG showed normal sinus rhythm (HR 96)
- monitor VS
# Urinary retention
- Black catheter in place; 1400mL
- UA grew yeast
- d/c'ed miconazole
#Chronic wounds
Location, type and further characteristics are described as follows: 'dry skin R heel, blanchable red heels. Coccyx stage 1 pressure injury. R back/flank scattered red areas with some dried blisters and a broken dry blister on his lower anterior
chest. R hand, R forearm skin tears. Small scabbed abrasions L leg and L thigh, L elbow/forearm.'
-noted on right upper back and right posterior gluteal region
- etiology of wounds are unclear but may be suspected due to old age, however, other etiologies may be more formally evaluated in an outpatient setting with dermatology follow-up on discharge
- bullae formation can be c/w bullous pemphigoid
- wound care following
#Essential hypertension
-Hold lisinopril
# suspected Moderate protein calorie malnutrition
- per nutrition consult, reported weight loss and nutrition focused physical assessment point towards moderate protein calorie malnutrition
DVT prophylaxis SCDs
CODE STATUS DNR
Medical Power of Road Builder is with daughterEsperanza
Disposition: PT rec SNF on 11/22, CM aware
per CM: as of 11/25, all facilities except [facility] have declined; daughter will provide additional names after checking Medicare.gov. Disposition is pending.
Anticipated Discharge: 24 - 48 hours
Subjective/Interval History
-
Date of Service: November 26, 2024
79 yo M with Alzheimer's disease
Weekend events:
maculopapular, vesicular, pruritic, blistering rash noted over weekend. concern for HSV, received empiric acylcoir for 2 days. ID consulted, not c/w HSV, VZV. acyclovir discontinued.
the rash was a large bullae on plantar aspect of right foot.
this morning, bandages covering right foot, but another bullae appeared. He is intermittently scratching his feet together when awake.
Nurse reported in the AM that he is tachycardic to 130s, on my visit, he was tachycardic between low 100s to 120s, and EKG was ordered.
excoriation-like ribeiro visible on palms of hands, but no bullae on hands or upper extremities visible
Objective Data
-
Labs:
Laboratory Results
11/26/24
06:00
WBC Pending
Hgb Pending
Hct Pending
Plt Count Pending
Sodium Pending
Potassium Pending
Chloride Pending
Carbon Dioxide Pending
BUN Pending
Creatinine Pending
Glucose Pending
Calcium Pending
WBC 4.8
Electrolytes normal limits
Vital Signs:
Vital Signs
Temp Pulse Resp BP Pulse Ox
98.0 F 78 18 138/75 100
11/26/24 02:59 11/26/24 02:59 11/26/24 02:59 11/26/24 02:59 11/26/24 02:59
VS stable
I&O
11/25/24 11/26/24 11/27/24
06:59 06:59 06:59
Intake Total 480 / 480 2800 / 2800
Output Total 650 / 650 1400 / 1400
Balance -170 / -170 1400 / 1400
Review of Systems
-
Unable to obtain full review of systems at this time due to: Dementia
Physical Exam
-
HEENT: Normocephalic
Respiratory: Clear to Auscultation
Cardiac: Regular Rhythm and Other (no murmurs on my exam)
GI: Other (some tenseness of abdomen but nontender;)
Genito-urinary: Other ( no suprapubic tenderness)
Musculoskeletal: No Edema and Other (appears volume down )
Skin: Warm, Dry and Other (fluid filled bullae on plantar of RIGHT foot, bandages present, another bullae on RIGHT foot, rash along lower extremity/thigh with maculopapular and some blisters)
Neuro: Other (AOx1)
Psych: Calm (this morning, calm)
[2024-11-26 08:10] LABS: Hematocrit 32.4 % (39.0-52.0); Hemoglobin 11.0 g/dL (13.0-18.0); Mean Corp Hgb Conc. 34.0 g/dL (33.0-37.0); Mean Corpuscular Volume 85.3 fL (80.0-94.0); Platelet Count 170 10^3/uL (130-400); Red Cell Dist. Width 13.9 % (11.5-14.5)
[2024-11-26 08:41] LABS: Blood Urea Nitrogen 6 mg/dl (9-20); Calcium 8.8 mg/dl (8.4-10.2); Carbon Dioxide 25 mmol/L (22-30); Chloride 110 mmol/L (98-107); Estimated Creatinine Clearance 70 ml/min; Glucose 82 mg/dl (70-99); Potassium 3.7 mmol/L (3.5-5.1); Sodium 139 mmol/L (135-145); eGFR > 60.00
[2024-11-26] MEDS: SEROQUEL 50 MG PO (09:14)
[2024-11-26] MEDS: FLOMAX 0.4 MG PO (09:14)
[2024-11-26] MEDS: DESENEX/MITRAZOL/ZEASORB 1 APPLIC TOPICAL (09:16)
--- NOTE | 2024-11-26 11:37 | W.PN.ID1 ---
Date of Service
Date of Service: November 26, 2024
Today's Communication
Sign off.
Assessment / Plan
Right foot rash with bullae formation
- Not consistent with HSV or VZV.
- Possibly id reaction or contact dermatitis
Urinary retention with Zamora catheter
Syncope with recurrent hypotension
Alzheimer's dementia
Hx TBI
Recommendations:
No evidence of herpes virus infection (HSV or VZV) on physical exam. Vesicles not consistent with herpes virus infection
Possible id reaction. Will begin Lotrimin to the toes and feet.
May consider Dermatology evaluation.
Little more to offer from a Infectious Disease standpoint.
Will see again at your request.
����������������������������������������������������������
Chief Complaint
-: Other (Foot blister)
Subjective / Review of Systems
Review of Systems: No Fever and No Chills
Vital Signs / Physical Exam
Vital Signs
Vital Signs
Temp Pulse Resp BP Pulse Ox
97.9 F 104 18 108/62 98
11/26/24 11:05 11/26/24 11:05 11/26/24 11:05 11/26/24 11:05 11/26/24 11:05
Physical Exam
Constitutional: Comfortable, Chronically Ill and Non-toxic
Eyes: Sclera Anicteric
Cardiovascular: S1/S2; Negative S3/S4
Pulmonary: Non Labored
Gastrointestinal: Soft and Non Tender
Skin: Rash (Vesicular rash on right foot persist. Now with 2 large bullae. Multiple other bullae present.)
Neurological: Awake and Alert
Psychological: Confused
Objective Data
Lab Data
Lab Results
11/26/24 07:32
11/26/24 07:32
Estimated Creat Clear 70 ml/min 11/26/24 07:32
Total Bilirubin 0.9 mg/dl (0.2-1.3) 11/17/24 11:19
AST 31 U/L (17-59) 11/17/24 11:19
ALT 26 U/L (0-50) 11/17/24 11:19
Alkaline Phosphatase 68 U/L (38-126) 11/17/24 11:19
Most recent labs reviewed.
Micro Results:
11/21/24 05:47 Urine Culture - Final
Urine Yeast
11/17/24 13:53 Urine Culture - Final
Urine NO GROWTH
- Right foot -
[2024-11-26] MEDS: SEROQUEL 75 MG PO ×2 (12:41→22:28)
[2024-11-26] MEDS: LOTRIMIN 1% CREAM 1 APPLIC TOPICAL ×2 (12:43→23:07)
[2024-11-26] MEDS: BENADRYL ELIXIR 25 MG PO ×2 (12:54→22:30)
--- NOTE | 2024-11-26 15:38 | CM ---
Reviewed the chart notes and spoke with the patient's spouse, daughter and caregiver (Eri) at the bedside. Eri is a private caregiver four days per week for four hours. Reviewed with the daughter that [facility] and [facility] declined accepting the
patient due to the patient exceeding level of care they could provide. [facility] declined due to no bed availability this week. [facility] accepted patient, but family refused facility. CM asked that they provide additional names for referrals to be sent
out. They are interested in private room for patient at a facility. Offer to send referral to [facility] and [facility], daughter not in agreement. Daughter will confer with a friend and review [email or web address]. CM contact information
provide to the daughter. Daughter will text CM with names of facilities. CM continues to be available to patient/family and is monitoring medical plan for needs at discharge.
Plan: Discharge to SNF/rehab once bed secured and auth received.
[2024-11-26] MEDS: LOPRESSOR 5 MG IV (17:49)
[2024-11-26] MEDS: TYLENOL 650 MG PO (22:29)
[2024-11-27] VITALS (8 sets, daily range): BP systolic 98–148; BP diastolic 48–100
--- NOTE | 2024-11-27 06:29 | PTCARENOTE ---
pt unable to void. bladder scan throughout the night. at 0400 >500ml. Informed SUPERVIS[employer] Kaelyn - Instructed to reinsert Zamora for urinary retention. 500mpl of yellow sediment urine removed.
[2024-11-27 06:46] LABS: Hematocrit 32.0 % (39.0-52.0); Hemoglobin 11.0 g/dL (13.0-18.0); Mean Corp Hgb Conc. 34.4 g/dL (33.0-37.0); Mean Corpuscular Volume 84.2 fL (80.0-94.0); Platelet Count 180 10^3/uL (130-400); Red Cell Dist. Width 14.1 % (11.5-14.5)
--- NOTE | 2024-11-27 07:03 | W.PN.HOSP.TC ---
Addendum entered and electronically signed by Po Morrison MD 11/27/24 23:20:
Attending Addendum-
I saw and evaluated the patient. I reviewed the resident�s note and agree with findings and plan as documented in the resident�s note. Sub: Patient confused but alert and pleasant no complaints. following commands with prompting. No fevers chills.
Full 12 point ROS reviewed and negative except as documented Exam: Vitals reviewed in chart GEN-NAD Heart RRR Lungs clear abd soft LE no edema Neuro AAO x 0 follows commands intermittently Skin RLE vesicular rash with fluid filled blister present
mac pap in back black in place draining clear yellow urine
Plan:
#Syncopal episodes with recurrent hypotension
- h/o TBI s/p fall
- Cardiology consulted- appreciate input
- Monitor on telemetry
- TSH, cortisol- appropriate
- 2d echo and carotid u/s - < 50% sten B/L, ECHO EF Normal left ventricular size, wall thickness and systolic function. No regional wall motion abnormalities are seen. valves WNL
- prn midodrine
- improved s/p IVF, likely autonomic dysfunction- fall precautions
# Hypothermia-
- resolved
#Urinary Retention
- reinserted black failed TOV
- reattempt TOV when able
- cont flomax
#Chronic wounds / Coccyx stage 1 pressure ulcer POA
-cont wound care
# RLE sole rash
- unclear etiology
- try steroid cream
#Alzheimer's dementia with behavioral disturbance
-h/o aggressive and combative behaviors
-History of TBI
-PT/OT/ST appreciated
-Continue home quetiapine
-end stage poor prognosis
#Essential hypertension
-Hold lisinopril
#Moderate PCM- encourage PO
DVT prophylaxis SCDs
CODE STATUS DNR
Dispo just DC'd from [place], dc to [facility] in am
Time spent coordinating care, review of plan of care with resident, personally reviewed records in EMR, med rec, consults, notes, labs, radiology, d/w nursing CM � 52 mins
Original Note:
Today's Communication/Plan
-
- d/c benadryl
- hydroxyzine 10mg PO qid prn
- hydrocortisone 1% lotion
- metoprolol 5mg IV once for tachycardia
Assessment / Plan
Assessment / Plan
Assessment/plan
79 yo M PMH Alzheimer's dementia, TBI, HTN who presented with a syncopal episode. Per daughter, the patient also has experienced multiple episodes of hypotension requiring EMS and hospital admissions over the past months.
#Syncopal episodes with recurrent hypotension
-EKG upon presentation NSR with occasional PVCs
- workup thus far has not revealed a clear etiology for syncope and recurrent hypotension
- most likely etiology is progression of dementia
- case management working to place at SNF vs. hospice?
- will call daughter for additional information, wishes
# Bullae on right lower extremity
- ID was consulted, not consistent with HSV
- excoriation-like ribeiro on palms, are possibly from scratching, no bullae or large blisters on hands.
- d/c benadryl
- started hydroxyzine 10mg PO QIDprn
- per ID, clotrimazole topical bid
- ID recommends considering follow-up dermatology
- started hydrocortisone 1% lotion topical
#Alzheimer's dementia
- AOx1
-Aggressive and combative behaviors at the last hospitalization
-History of TBI
-Continue home quetiapine
- his condition is most likely dementia progression
# Tachycardia
- HR occasionally in 100s
- monitor showed occasionally sinus tachycardia with some PVCs
- could be attributed to pruritic rash
- could be attributed to intermittent refusal of quetiapine
- EKG showed normal sinus rhythm but with artifact
- gave metoprolol 5mg IV once
- monitor VS
# Urinary retention
- Black catheter in place; 1400mL
- UA grew yeast
- d/c'ed miconazole
#Chronic wounds
Location, type and further characteristics are described as follows: 'dry skin R heel, blanchable red heels. Coccyx stage 1 pressure injury. R back/flank scattered red areas with some dried blisters and a broken dry blister on his lower anterior
chest. R hand, R forearm skin tears. Small scabbed abrasions L leg and L thigh, L elbow/forearm.'
-noted on right upper back and right posterior gluteal region
- etiology of wounds are unclear but may be suspected due to old age, however, other etiologies may be more formally evaluated in an outpatient setting with dermatology follow-up on discharge
- bullae formation can be c/w bullous pemphigoid
- wound care following
#Essential hypertension
-Hold lisinopril
# suspected Moderate protein calorie malnutrition
- per nutrition consult, reported weight loss and nutrition focused physical assessment point towards moderate protein calorie malnutrition
DVT prophylaxis SCDs
CODE STATUS DNR
Medical Power of Solar Photovoltaic Systems Engineer is with daughter, Esperanza
Disposition:
Spoke with Esperanza on 11/27 at approximately 18:00, she wants her father to go to a rehab facility that is a 'good one.' She does not want [facility]. She is preapred to take her father home as well, but would prefer a SNF. Will need to touch
base with case management about if this is an option to have visitng nurses visit their home. Esperanza mentioned that a private nurse visits their home 4x/week. With regards to the bullae, it is impacting her father's ability to walk, and she is hoping
to get answers about that as well.
Anticipated Discharge: 24 - 48 hours
Subjective/Interval History
-
Date of Service: November 27, 2024
larger and more blister/bullae on right foot and left foot now
tachcyardic to 100s-110s. was given IV metoprolol 5mg one time last evening
Objective Data
-
Labs:
Laboratory Results
11/27/24
05:41
WBC 4.9
Hgb 11.0 L
Hct 32.0 L
Plt Count 180
Sodium Pending
Potassium Pending
Chloride Pending
Carbon Dioxide Pending
BUN Pending
Creatinine Pending
Glucose Pending
Calcium Pending
electrolytes normal
Vital Signs:
Vital Signs
Temp Pulse Resp BP Pulse Ox
97.6 F 95 18 142/91 97
11/27/24 04:00 11/27/24 04:00 11/27/24 04:00 11/27/24 04:00 11/27/24 04:00
tachycardic
I&O
11/26/24 11/27/24 11/28/24
06:59 06:59 06:59
Intake Total 2800 / 2800 320 / 320
Output Total 1400 / 1400 1800 / 1800
Balance 1400 / 1400 -1480 / -1480
Review of Systems
-
Unable to obtain full review of systems at this time due to: Dementia
Physical Exam
-
HEENT: Normocephalic
Respiratory: Clear to Auscultation
Cardiac: Regular Rhythm and Other (no murmurs on my exam)
GI: Other (some tenseness of abdomen but nontender;)
Genito-urinary: Other ( no suprapubic tenderness)
Musculoskeletal: No Edema and Other (appears volume down )
Skin: Warm, Dry and Other (fluid filled bullae on plantar of RIGHT foot larger today, bullae on LEFT foot too, bandages present, rash along lower extremity/thigh with maculopapular; excoriation on right palm)
Neuro: Other (AOx1)
Psych: Calm (this morning, calm)
[2024-11-27 07:06] LABS: Blood Urea Nitrogen 5 mg/dl (9-20); Calcium 9.0 mg/dl (8.4-10.2); Carbon Dioxide 24 mmol/L (22-30); Chloride 109 mmol/L (98-107); Estimated Creatinine Clearance 70 ml/min; Glucose 80 mg/dl (70-99); Potassium 3.9 mmol/L (3.5-5.1); Sodium 138 mmol/L (135-145); eGFR > 60.00
--- NOTE | 2024-11-27 08:12 | CM ---
Addendum entered by Sirena Walton RN 11/27/24 12:12:
Left voice message for [facility] admissions. Await call back. Family updated. Daughter not interested in pursuing any other facilities at this time.
Original Note:
Reviewed the chart notes. Received voice message from the patient's daughter requesting a referral be sent to [facility]. Referral sent. CM continues to be available to patient/family and is monitoring medical plan for needs at discharge.
Plan: Discharge to SNF once bed secured and auth obtained.
[2024-11-27] MEDS: FLOMAX 0.4 MG PO (08:37)
[2024-11-27] MEDS: SEROQUEL 50 MG PO (08:37)
[2024-11-27] MEDS: BENADRYL ELIXIR 25 MG PO (08:44)
[2024-11-27] MEDS: LOTRIMIN 1% CREAM 1 APPLIC TOPICAL ×2 (08:47→21:04)
[2024-11-27] MEDS: SEROQUEL 75 MG PO ×2 (12:14→21:03)
[2024-11-27] MEDS: LOPRESSOR 5 MG IV (14:41)
[2024-11-27] MEDS: ATARAX 10 MG PO (14:45)
[2024-11-27] MEDS: HYDROCORTISONE 1% LOTION 1 APPLIC TOPICAL (21:04)
[2024-11-28] VITALS (8 sets, daily range): BP systolic 108–144; BP diastolic 50–96; PULSE 84
[2024-11-28 07:26] LABS: Hematocrit 34.2 % (39.0-52.0); Hemoglobin 11.7 g/dL (13.0-18.0); Mean Corp Hgb Conc. 34.2 g/dL (33.0-37.0); Mean Corpuscular Volume 84.7 fL (80.0-94.0); Platelet Count 211 10^3/uL (130-400); Red Cell Dist. Width 13.9 % (11.5-14.5)
[2024-11-28 07:54] LABS: Blood Urea Nitrogen 5 mg/dl (9-20); Calcium 8.9 mg/dl (8.4-10.2); Carbon Dioxide 28 mmol/L (22-30); Chloride 104 mmol/L (98-107); Estimated Creatinine Clearance 70 ml/min; Glucose 90 mg/dl (70-99); Potassium 4.2 mmol/L (3.5-5.1); Sodium 137 mmol/L (135-145); eGFR > 60.00
--- NOTE | 2024-11-28 08:10 | W.PN.HOSP.TC ---
Addendum entered and electronically signed by Po Morrison MD 11/28/24 22:45:
Attending Addendum-
I saw and evaluated the patient. I reviewed the resident�s note and agree with findings and plan as documented in the resident�s note. Sub: Patient more alert today very pleasant no complaints. following commands with prompting. d/w POA on phone. CG
present. No fevers chills. Full 12 point ROS reviewed and negative except as documented Exam: Vitals reviewed in chart GEN-NAD Heart RRR Lungs clear abd soft LE no edema Neuro AAO x 0 follows commands intermittently Skin RLE bandaged LLE no rash
black in place draining clear yellow urine
Plan:
#Syncopal episodes with recurrent hypotension
- h/o TBI
- 2d echo and carotid u/s - < 50% sten B/L, ECHO EF Normal left ventricular size, wall thickness and systolic function. No regional wall motion abnormalities are seen. valves WNL
- prn midodrine
- improved s/p IVF, likely autonomic dysfunction- fall precautions
# Hypothermia- resolved
#Urinary Retention
- failed TOV-cont black
- reattempt TOV when able
- cont flomax
#Chronic wounds / Coccyx stage 1 pressure ulcer POA
-cont wound care
#Poor appetite- start remeron, for depression as well
# RLE sole rash
- unclear etiology
- cont steroid cream
#Alzheimer's dementia with behavioral disturbance
-h/o aggressive and combative behaviors
-History of TBI
-PT/OT/ST appreciated
-Continue home quetiapine
-end stage poor prognosis
#Essential hypertension
-Hold lisinopril
#Moderate PCM- encourage PO start Remeron
DVT prophylaxis SCDs
CODE STATUS DNR
Dispo not accepted by or [facility], POA wants private room- DC delayed due to placement- DC in am POA agreeable to or [facility]
Time spent coordinating care, review of plan of care with resident, personally reviewed records in EMR, med rec, consults, notes, labs, radiology, d/w nursing VALARIE POA� 51 mins
Original Note:
Today's Communication/Plan
-
- daughter is okay with any SNF, including [facility]
- CM aware of this update
- mirtazapine for stimulant purposes
Assessment / Plan
Assessment / Plan
Assessment/plan
79 yo M PM Alzheimer's dementia, TBI, HTN who presented with a syncopal episode. Per daughter, the patient also has experienced multiple episodes of hypotension requiring EMS and hospital admissions over the past months.
Team spoke with Esperanza during rounds. She is amenable to any SNF. CM made aware.
#Syncopal episodes with recurrent hypotension
-EKG upon presentation NSR with occasional PVCs
- workup thus far has not revealed a clear etiology for syncope and recurrent hypotension
- monitors shows NSR
- most likely etiology is progression of dementia
# Bullae on right lower extremity
- ID was consulted, not consistent with HSV
- excoriation-like ribeiro on palms, are possibly from scratching, no bullae or large blisters on hands.
- hydroxyzine 10mg PO QIDprn
- per ID, clotrimazole topical bid
- ID recommends considering follow-up dermatology
- hydrocortisone 1% lotion topical
#Alzheimer's dementia
- AOx1
-Aggressive and combative behaviors at the last hospitalization
-History of TBI
-Continue home quetiapine
- his condition is most likely dementia progression
# suspected Moderate protein calorie malnutrition
- per nutrition consult, reported weight loss and nutrition focused physical assessment point towards moderate protein calorie malnutrition
- start mirtazapine 15mg PO
# Tachycardia
- HR occasionally in 100s, but has been within normal limits today
- monitor showed occasionally sinus tachycardia with some PVCs
- could be attributed to pruritic rash
- could be attributed to intermittent refusal of quetiapine
- EKG showed normal sinus rhythm but with artifact
- gave metoprolol 5mg IV once
- monitor VS
# Urinary retention
- Black catheter in place; 1400mL
- UA grew yeast
- d/c'ed miconazole
#Chronic wounds
Location, type and further characteristics are described as follows: 'dry skin R heel, blanchable red heels. Coccyx stage 1 pressure injury. R back/flank scattered red areas with some dried blisters and a broken dry blister on his lower anterior
chest. R hand, R forearm skin tears. Small scabbed abrasions L leg and L thigh, L elbow/forearm.'
-noted on right upper back and right posterior gluteal region
- etiology of wounds are unclear but may be suspected due to old age, however, other etiologies may be more formally evaluated in an outpatient setting with dermatology follow-up on discharge
- bullae formation can be c/w bullous pemphigoid
- wound care following
#Essential hypertension
-Hold lisinopril
DVT prophylaxis SCDs
CODE STATUS DNR
Medical Power of Plant Wire Chief is with Esperanza husain
Disposition: to SNF, daughter is okay with SNF
Anticipated Discharge: Within 24 hours
Subjective/Interval History
-
Date of Service: November 28, 2024
blister popped
otherwise no acute events
tachycardia has resolved
Objective Data
-
Labs:
Laboratory Results
11/28/24
07:08
WBC 7.0
Hgb 11.7 L
Hct 34.2 L
Plt Count 211
Sodium 137
Potassium 4.2
Chloride 104
Carbon Dioxide 28
BUN 5 L
Creatinine 0.8
Glucose 90
Calcium 8.9
Vital Signs:
Vital Signs
Temp Pulse Resp BP Pulse Ox
97.6 F 90 18 144/93 100
11/28/24 03:02 11/28/24 03:02 11/28/24 03:02 11/28/24 03:02 11/28/24 03:02
I&O
11/27/24 11/28/24 11/29/24
06:59 06:59 06:59
Intake Total 320 / 320 600 / 600
Output Total 1800 / 1800 2250 / 2250
Balance -1480 / -1480 -1650 / -1650
Review of Systems
-
Unable to obtain full review of systems at this time due to: Dementia
Physical Exam
-
HEENT: Normocephalic
Respiratory: Clear to Auscultation
Cardiac: Regular Rhythm and Other (no murmurs on my exam)
GI: Soft and Nontender
Genito-urinary: Other ( no suprapubic tenderness)
Musculoskeletal: No Edema
Skin: Warm, Dry and Other (bullae on lower extremities that have popped, at different stages)
Neuro: Other (AOx1)
Psych: Calm (this morning, calm)
[2024-11-28] MEDS: SEROQUEL 50 MG PO (08:49)
[2024-11-28] MEDS: FLOMAX 0.4 MG PO (08:49)
--- NOTE | 2024-11-28 12:28 | CM ---
Addendum entered by Brianda Johnson 11/28/24 14:37:
[facility] accepted patient however they do not have a private room daughter would like referral sent to [facility], referral sent.
Addendum entered by Brianda Johnson 11/28/24 14:23:
Per admissions at [facility] they would like updated notes on patient, updated notes faxed and they will accept patient needs auth.
Original Note:
video manager reviewed patient's chart and plan is for skilled placement, patient has been denied at [facility], No beds at [facility] and [facility], referral sent to [facility] and message left with [facility] to
see if they have any beds available.
Plan; Skilled placement.
[2024-11-28] MEDS: SEROQUEL 75 MG PO ×2 (12:43→20:51)
[2024-11-28] MEDS: HYDROCORTISONE 1% LOTION 1 APPLIC TOPICAL ×2 (12:55→20:05)
[2024-11-28] MEDS: ATARAX 10 MG PO ×2 (12:55→22:15)
[2024-11-28] MEDS: LOTRIMIN 1% CREAM 1 APPLIC TOPICAL ×2 (12:56→20:04)
[2024-11-28] MEDS: REMERON 15 MG PO (22:12)
[2024-11-29] VITALS (7 sets, daily range): BP systolic 108–145; BP diastolic 63–95; PULSE 119–128
--- NOTE | 2024-11-29 04:27 | PTCARENOTE ---
Patient with occasional HR spike to 140's then to 160 x 1. Unsustained and patient asymptomatic. HR return to baseline 90-100's. TT to [facility], covering floor. Mg added to am labs.
--- NOTE | 2024-11-29 07:04 | W.PN.HOSP.TC ---
Addendum entered and electronically signed by Po Morrison MD 11/29/24 21:38:
Attending Addendum-
I saw and evaluated the patient. I reviewed the resident�s note and agree with findings and plan as documented in the resident�s note. Sub: called to bedside due to presyncopal episode while attempting to stand. patient with poor appetite.
following commands with prompting. CG present. 'i have a pain in my ass. i dont have a heart to listen to!' No fevers chills. Full 12 point ROS reviewed and negative except as documented Exam: Vitals reviewed in chart GEN-NAD Heart RRR Lungs clear
abd soft LE no edema Neuro AAO x 0 follows commands intermittently Skin RLE bandaged LLE no rash black in place draining concentrated yellow urine
Plan:
#Syncopal episodes with recurrent hypotension
- presyncopal episode 11/29
- h/o TBI
- 2d echo and carotid u/s - < 50% sten B/L, ECHO EF Normal left ventricular size, wall thickness and systolic function. No regional wall motion abnormalities are seen. valves WNL
- start standing midodrinev keep bp >120
- restart IVF, likely autonomic dysfunction- fall precautions
- poor prognosis due to fall, cont fall precautions
# Hypothermia- resolved
#Urinary Retention
- failed TOV-cont black
- reattempt TOV when at SNF
- cont flomax
#Chronic wounds / Coccyx stage 1 pressure ulcer POA
-cont wound care
#Poor appetite- cont remeron, for depression as well start IVF
# RLE sole rash
- resolved
- unclear etiology
- cont steroid cream
#Alzheimer's dementia with behavioral disturbance
-h/o aggressive and combative behaviors
-History of TBI
-PT/OT/ST appreciated
-Continue home quetiapine
-end stage poor prognosis
#Essential hypertension
-Hold lisinopril
#Moderate PCM- encourage PO cont new Remeron
DVT prophylaxis SCDs
CODE STATUS DNR
Dispo- dc to [facility] in am
Time spent coordinating care, review of plan of care with resident, personally reviewed records in EMR, med rec, consults, notes, labs, radiology, d/w nursing CM� 51 mins
Original Note:
Today's Communication/Plan
-
- chronic black
- f/u CM about disposition
Assessment / Plan
Assessment / Plan
Assessment/plan
79 yo M PMH Alzheimer's dementia, TBI, HTN who presented with a syncopal episode. Per daughter, the patient also has experienced multiple episodes of hypotension requiring EMS and hospital admissions over the past months.
#Syncopal episodes with recurrent hypotension
-EKG upon presentation NSR with occasional PVCs
- workup thus far has not revealed a clear etiology for syncope and recurrent hypotension
- monitors shows NSR
- most likely etiology is progression of dementia
# Bullae on right lower extremity
- ID was consulted, not consistent with HSV or an infectious process because caregiver, daughter, and visitors have not reported any symptoms
- excoriation-like ribeiro on palms, are possibly from scratching, no bullae or large blisters on hands.
- hydroxyzine 10mg PO QIDprn
- per ID, clotrimazole topical bid
- ID recommends considering follow-up dermatology
- likely an autoimmune process
- hydrocortisone 1% lotion topical
#Alzheimer's dementia
- AOx1
-Aggressive and combative behaviors at the last hospitalization
-History of TBI
-Continue home quetiapine
- his condition is most likely dementia progression
# suspected Moderate protein calorie malnutrition
- per nutrition consult, reported weight loss and nutrition focused physical assessment point towards moderate protein calorie malnutrition
- continue mirtazapine 15mg PO
# Tachycardia
- HR occasionally in 100s, but has been within normal limits today
- monitor showed occasionally sinus tachycardia with some PVCs
- could be attributed to pruritic rash
- could be attributed to intermittent refusal of quetiapine
- EKG showed normal sinus rhythm but with artifact
- gave metoprolol 5mg IV once
- monitor VS
# Urinary retention
- Black catheter in place; 1400mL
- UA grew yeast
- d/c'ed miconazole
- modify order to chronic black
#Chronic wounds
Location, type and further characteristics are described as follows: 'dry skin R heel, blanchable red heels. Coccyx stage 1 pressure injury. R back/flank scattered red areas with some dried blisters and a broken dry blister on his lower anterior
chest. R hand, R forearm skin tears. Small scabbed abrasions L leg and L thigh, L elbow/forearm.'
-noted on right upper back and right posterior gluteal region
- etiology of wounds are unclear but may be suspected due to old age, however, other etiologies may be more formally evaluated in an outpatient setting with dermatology follow-up on discharge
- bullae formation can be c/w bullous pemphigoid
- wound care following
#Essential hypertension
-Hold lisinopril
DVT prophylaxis SCDs
CODE STATUS DNR
Medical Power of Court Attendant is with Esperanza husain
Disposition: to SNF, daughter is okay with SNF
Anticipated Discharge: Within 24 hours
Subjective/Interval History
-
Date of Service: November 29, 2024
this morning,
feels well, no complaints
Objective Data
-
Labs:
Laboratory Results
11/29/24
06:38
WBC Pending
Hgb Pending
Hct Pending
Plt Count Pending
Sodium Pending
Potassium Pending
Chloride Pending
Carbon Dioxide Pending
BUN Pending
Creatinine Pending
Glucose Pending
Calcium Pending
WBC 6.3
Electrolytes within normal limits
Vital Signs:
Vital Signs
Temp Pulse Resp BP Pulse Ox
97.8 F 108 16 130/75 94
11/29/24 03:14 11/29/24 03:14 11/29/24 03:14 11/29/24 03:14 11/29/24 03:14
tachycardic to low 100s
I&O
11/28/24 11/29/24 11/30/24
06:59 06:59 06:59
Intake Total 600 / 600 300 / 300
Output Total 2250 / 2250 1075 / 1075
Balance -1650 / -1650 -775 / -775
Review of Systems
-
Unable to obtain full review of systems at this time due to: Dementia
Physical Exam
-
HEENT: Normocephalic
Respiratory: Clear to Auscultation
Cardiac: Regular Rhythm and Other (no murmurs on my exam)
GI: Soft and Nontender
Genito-urinary: Other ( no suprapubic tenderness)
Musculoskeletal: No Edema
Skin: Warm, Dry and Other (bullae on lower extremities that have popped, at different stages)
Neuro: Other (AOx1)
Psych: Calm (this morning, calm)
[2024-11-29 07:37] LABS: Hematocrit 35.5 % (39.0-52.0); Hemoglobin 11.9 g/dL (13.0-18.0); Mean Corp Hgb Conc. 33.5 g/dL (33.0-37.0); Mean Corpuscular Volume 84.9 fL (80.0-94.0); Platelet Count 226 10^3/uL (130-400); Red Cell Dist. Width 14.5 % (11.5-14.5)
[2024-11-29 07:47] LABS: Blood Urea Nitrogen 6 mg/dl (9-20); Calcium 9.3 mg/dl (8.4-10.2); Carbon Dioxide 28 mmol/L (22-30); Chloride 105 mmol/L (98-107); Estimated Creatinine Clearance 70 ml/min; Glucose 98 mg/dl (70-99); Magnesium 2.0 mg/dl (1.6-2.3); Potassium 3.8 mmol/L (3.5-5.1); Sodium 138 mmol/L (135-145); eGFR > 60.00
[2024-11-29] MEDS: TYLENOL 650 MG PO ×3 (10:05→21:14)
[2024-11-29] MEDS: ATARAX 10 MG PO (10:06)
[2024-11-29] MEDS: SEROQUEL 50 MG PO (10:06)
[2024-11-29] MEDS: FLOMAX PO (10:09)
--- NOTE | 2024-11-29 11:56 | PTCARENOTE ---
Patient had what appeared to be a near syncopal episode while attempting to ambulate to bathroom evidenced by episode of weakness, unable to bear own weight. Had eyes closed during this event but remained able to talk with staff. Was quickly put
back to bed without injury or fall. Placed in Trendelenberg position. BP obtained, 131/74, HR 96, 96% on room air. Dr. Sanabria made aware. Patient now appears comfortable in bed.
--- NOTE | 2024-11-29 12:05 | CM ---
Addendum entered by Dipti Wilson 11/29/24 12:51:
IMM explained to patient's daughter, Esperanza, via phone; form dated/timed @ 1250
Addendum entered by Dipti Wilson 11/29/24 12:38:
Plan: Discharge to [facility] tomorrow, 11/30; pending AUTH approval
Report # [phone], ask for Melvi

Addendum entered by Dipti Wilson 11/29/24 12:34:
Per Attending, Patient's discharged until tomorrow pending Auth Approval
Toña #[phone] @ [facility] was notified via phone
Original Note:
Spoke with patient's daughter via phone; she is agreeable with patient going to [facility]
Plan: Discharge to [facility] pending AUTH approval
[facility] NPT # [id number]
Provider, Lavern Schultz; NPI # [id number]
Report # [phone], ask for Melvi
[2024-11-29] MEDS: LOTRIMIN 1% CREAM 1 APPLIC TOPICAL ×2 (13:16→20:25)
[2024-11-29] MEDS: HYDROCORTISONE 1% LOTION 1 APPLIC TOPICAL ×2 (13:16→20:23)
--- NOTE | 2024-11-29 14:32 | WOUNDNOTE ---
WO RN NOTE: Visited patient to follow up on wounds from 11/19. Patient sleeping and accompanied by caregiver, Eri. Eri asked that patient not be disturbed as she just got him comfortable. Patient asleep in [facility] bed. Plan is for SNF
tomorrow.
[2024-11-29] MEDS: SEROQUEL 75 MG PO ×2 (14:52→21:14)
[2024-11-29] MEDS: NSS 1000 IV (14:53)
[2024-11-29] MEDS: REMERON 15 MG PO (21:14)
[2024-11-30 03:28] VITALS: BP 150/93
[2024-11-30] MEDS: NSS 1000 IV (04:17)
[2024-11-30 06:33] LABS: Hematocrit 34.9 % (39.0-52.0); Hemoglobin 11.6 g/dL (13.0-18.0); Mean Corp Hgb Conc. 33.2 g/dL (33.0-37.0); Mean Corpuscular Volume 87.5 fL (80.0-94.0); Platelet Count 234 10^3/uL (130-400); Red Cell Dist. Width 14.5 % (11.5-14.5)
[2024-11-30 07:00] VITALS: BP 141/87
[2024-11-30 07:04] LABS: Blood Urea Nitrogen 7 mg/dl (9-20); Calcium 9.0 mg/dl (8.4-10.2); Carbon Dioxide 27 mmol/L (22-30); Chloride 108 mmol/L (98-107); Estimated Creatinine Clearance 70 ml/min; Glucose 89 mg/dl (70-99); Potassium 4.3 mmol/L (3.5-5.1); Sodium 140 mmol/L (135-145); eGFR > 60.00
--- NOTE | 2024-11-30 07:07 | W.PN.HOSP.TC ---
Addendum entered and electronically signed by Po Morrison MD 11/30/24 21:51:
Attending Addendum-
I saw and evaluated the patient. I reviewed the resident�s note and agree with findings and plan as documented in the resident�s note. Sub: CG and daughter present. No fevers chills presyncope. Does have new skin bullae present on LE. Full 12
point ROS reviewed and negative except as documented Exam: Vitals reviewed in chart GEN-NAD Heart RRR Lungs clear abd soft LE no edema Neuro AAO x 0 follows commands intermittently Skin B/L LE multiple fluid filled bullae present with blister
popped. no signs of infection. black in place draining clear yellow urine
Plan:
#Syncopal episodes with recurrent hypotension
- presyncopal episode 11/29
- h/o TBI
- 2d echo and carotid u/s - < 50% sten B/L, ECHO EF Normal left ventricular size, wall thickness and systolic function. No regional wall motion abnormalities are seen. valves WNL
- scont standing midodrine keep bp >120
- possibly autonomic dysfunction- fall precautions
- poor prognosis due to fall, cont fall precautions
# Hypothermia- resolved
#Urinary Retention
- failed TOV-cont black
- reattempt TOV when at SNF
- cont flomax
#Chronic wounds / Coccyx stage 1 pressure ulcer POA
-cont wound care
#Poor appetite- cont new remeron
#B/L LE bullae/blisters
- start antibiotics x 7 days
- t/c derm f/u as OP
- cont wound care
- possibly bullous impetigo start doxy cover MRSA and due to severe PCN allergy
- wound cx - sent 11/30- prior to DC for HSV and gm stain
#Alzheimer's dementia with behavioral disturbance
-h/o aggressive and combative behaviors
-History of TBI
-PT/OT/ST appreciated
-Continue home quetiapine
-end stage poor prognosis
#Essential hypertension
-Hold lisinopril
#Moderate PCM- encourage PO cont new Remeron
DVT prophylaxis SCDs
CODE STATUS DNR
Dispo- dc to [facility]
Time spent coordinating care, DC planning, review of DC plan of care with resident, transition of care, review of records, med rec/scripts sent electronically, consults, notes, d/w consultants, nursing, family, and CM� 33 mins >50% of this time was
devoted to counseling and coordination of care
Original Note:
Today's Communication/Plan
-
- f/u CM
- keep black
- continue mirtazipine
Assessment / Plan
Assessment / Plan
Assessment/plan
79 yo M PMH Alzheimer's dementia, TBI, HTN who presented with a syncopal episode. Per daughter, the patient also has experienced multiple episodes of hypotension requiring EMS and hospital admissions over the past months.
#Syncopal episodes with recurrent hypotension
-EKG upon presentation NSR with occasional PVCs
- workup thus far has not revealed a clear etiology for syncope and recurrent hypotension
- monitors shows NSR
- most likely etiology is progression of dementia
- Had a presyncopal episode 11/29 afternoon when walking to bathroom, most likely orthostatic (orthostatics were negative 11/29 afternoon) in setting of poor PO intake,
# Bullae on right lower extremity
- ID was consulted, not consistent with HSV or an infectious process because caregiver, daughter, and visitors have not reported any symptoms
- excoriation-like ribeiro on palms, are possibly from scratching, no bullae or large blisters on hands.
- hydroxyzine 10mg PO QIDprn
- per ID, clotrimazole topical bid
- ID recommends considering follow-up dermatology
- likely an autoimmune process
- hydrocortisone 1% lotion topical
#Alzheimer's dementia
- AOx1
-Aggressive and combative behaviors at the last hospitalization
-History of TBI
-Continue home quetiapine
- his condition is most likely dementia progression
# suspected Moderate protein calorie malnutrition
- per nutrition consult, reported weight loss and nutrition focused physical assessment point towards moderate protein calorie malnutrition
- continue mirtazapine 15mg PO
# Tachycardia
- HR occasionally in 100s, but has been within normal limits today
- monitor showed occasionally sinus tachycardia with some PVCs
- could be attributed to pruritic rash
- could be attributed to intermittent refusal of quetiapine
- EKG showed normal sinus rhythm but with artifact
- gave metoprolol 5mg IV once
- monitor VS
# Urinary retention
- Black catheter in place; 1400mL
- UA grew yeast
- d/c'ed miconazole
- modify order to chronic black
#Chronic wounds
Location, type and further characteristics are described as follows: 'dry skin R heel, blanchable red heels. Coccyx stage 1 pressure injury. R back/flank scattered red areas with some dried blisters and a broken dry blister on his lower anterior
chest. R hand, R forearm skin tears. Small scabbed abrasions L leg and L thigh, L elbow/forearm.'
-noted on right upper back and right posterior gluteal region
- etiology of wounds are unclear but may be suspected due to old age, however, other etiologies may be more formally evaluated in an outpatient setting with dermatology follow-up on discharge
- bullae formation can be c/w bullous pemphigoid
- wound care following
#Essential hypertension
-Hold lisinopril
DVT prophylaxis SCDs
CODE STATUS DNR
Medical Power of [employer] is with daughterEsperanza
Disposition: to SNF, daughter is okay with SNF. I spoke with her 11/29 evening and hse is okay with plan to [facility], pending auth. PT/OT will be by this morning.
Anticipated Discharge: Within 24 hours
Subjective/Interval History
-
Date of Service: November 30, 2024
No overnight events
HR slightly tachy at 100-105
Objective Data
-
Labs:
Laboratory Results
11/30/24
05:36
WBC 6.8
Hgb 11.6 L
Hct 34.9 L
Plt Count 234
Sodium 140
Potassium 4.3
Chloride 108 H
Carbon Dioxide 27
BUN 7 L
Creatinine 0.8
Glucose 89
Calcium 9.0
Vital Signs:
Vital Signs
Temp Pulse Resp BP Pulse Ox
97.5 F 105 20 150/93 96
11/30/24 03:28 11/30/24 03:28 11/30/24 03:28 11/30/24 03:28 11/30/24 03:28
orthostatics 11/29 afternoon
supine 126/93; 119
sitting 116/82; 123
standing 108/78; 128
I&O
11/29/24 11/30/24 12/01/24
06:59 06:59 06:59
Intake Total 300 / 300 120 / 120
Output Total 1075 / 1075 450 / 450
Balance -775 / -775 -330 / -330
Physical Exam
-
HEENT: Normocephalic
Respiratory: Clear to Auscultation
Cardiac: Regular Rhythm and Other (no murmurs on my exam)
GI: Soft and Nontender
Genito-urinary: Other ( no suprapubic tenderness)
Musculoskeletal: No Edema
Skin: Warm, Dry and Other (bullae on lower extremities that have popped, at different stages)
Neuro: Other (AOx1)
Psych: Calm (this morning, calm, expresses an interest to get up and move around)
[2024-11-30] MEDS: SEROQUEL 50 MG PO (10:21)
[2024-11-30] MEDS: FLOMAX 0.4 MG PO (10:22)
[2024-11-30] MEDS: NSS IV ×2 (10:22→17:26)
[2024-11-30] MEDS: HYDROCORTISONE 1% LOTION 1 APPLIC TOPICAL (10:25)
[2024-11-30] MEDS: LOTRIMIN 1% CREAM 1 APPLIC TOPICAL (10:26)
[2024-11-30 11:00] VITALS: BP 110/65
--- NOTE | 2024-11-30 12:44 | WOUNDNOTE ---
LEFT LATERAL FOOT
--- NOTE | 2024-11-30 12:45 | WOUNDNOTE ---
PLANTAR ASPECT OF RIGHT TOES
--- NOTE | 2024-11-30 12:46 | WOUNDNOTE ---
[facility] RN NOTE: Patient visited to follow up on wounds. This designer writer was contacted by Olga GOMEZ to assess right plantar fully drained blister. Per chart review and patient assessment, patient appears to have skin changes consistent with bullous
pemphigoid. Patient is noted to have multiple areas of blisters and different stages of healing. Hydrocortisone cream has been ordered for reddened areas on arms and legs. Daughter, Esperanza concerned and inquired about systemic treatment. TT
Daniele who said he was aware of blisters and plan is to keep right plantar foot open at this time so he can stop by and address skin changes with daughter. Orders that were provided for blisters on 11/19 continue to be appropriate and have been
added to discharge plan. Discussed plan with Olga GOMEZ who will perform wound care after Dr. Sanabria assessment. Patient was sitting in chair with air cushion at time of assessment. JASON Espinoza to assess sacrum when patient goes back to bed.
Heels intact. Plan is for discharge to [facility] today.
[2024-11-30] MEDS: SEROQUEL 75 MG PO ×2 (13:04→17:14)
[2024-11-30] MEDS: TYLENOL 650 MG PO (14:08)
[2024-11-30] MEDS: ATARAX 10 MG PO (14:08)
--- NOTE | 2024-11-30 14:45 | CM ---
Addendum entered by Sirena Walton RN 11/30/24 15:57:
Patient's daughter Esperanza informed of p/u time is 1830.
Original Note:
Reviewed the chart notes and spoke with the patient, spouse, and daughter at the bedside. Auth started and approved for [facility].
Auth #[id number]; 5 days; 11/30-12/04; NRD 12/04 to [phone]
Plan: Discharge to [facility] today
Report # [phone], ask for Melvi

Medical necessity and transport forms on chart.
[2024-11-30 15:00] VITALS: BP 145/83
--- NOTE | 2024-11-30 16:10 | W.DCSUMMARY ---
Addendum entered and electronically signed by Po Morrison MD 11/30/24 21:52:
Read, reviewed, and agree. See same day progress note for additional details.
Parker Morrison MD
Original Note:
Documented by User: Frank Sanabria MD, Resident 11/30/24 18:35
Discharge Summary
Discharge Data
Date of Admission: 11/17/24
Date of Discharge: 11/30/24
-
Pending Results: No
Hospital Course
Discharging Physician : Po Morrison MD; Frank Sanabria MD
Disposition : SNF
Principal Discharge diagnosis : Syncopal episodes with recurrent hypotension, Urinary Retention, Alzheimer's dementia with behavioral disturbance
Chronic Discharge diagnosis : HTN and Other (Prior fall with head injury. Dementia), Orthopedic and Other (Glaucoma surgery. Posttraumatic surgery)
Hospital Course :
This is an 79-year-old male with past medical history of Alzheimer's dementia, TBI, hypertension who presents to [facility] after he was found unresponsive on 11/17. History was obtained from review of chart and from daughter over the phone.
Per daughter, patient with multiple syncopal episodes spanning for the past 3 years.
Upon presentation to the ED, blood pressure 109/75, pulse 78, respiratory 16, O2 sats 100% on room air. He was evaluated with a CT head without evidence for acute intracranial hemorrhage. He was evaluated with a chest x-ray which was unremarkable.
Urinalysis was negative. EKG showed NSR with occasional PVCs.
He was admitted for further management, and the following problems were addressed.
# Syncopal episodes with recurrent hypotension
- EKG upon presentation NSR with occasional PVCs
- workup thus far has not revealed a clear etiology for syncope and recurrent hypotension
- echocardiogram and carotid duplex ultrasound were both largely unremarkable
- Head CT revealed no acute intracranial process
- most likely etiology is progression of dementia
# Bullae on right lower extremity
- ID was consulted, not consistent with HSV, is concerning for an autoimmune process, like bullous pemphigoid, but definitive diagnosis required biopsy
- hydroxyzine 10mg PO QIDprn
- Clotrimazole topical bid
- hydrocortisone 1% lotion topical
- consider outpatient dermatology follow-up
# Alzheimer's dementia
- AOx1
-Continue home quetiapine
- his condition is most likely dementia progression
# Tachycardia
- HR occasionally in 100s, that has required occasional one time metoprolol 5mg
# Urinary retention
- chronic black catheter in place
- has failed multiple voiding trials
#Chronic wounds
Location, type and further characteristics are described as follows: 'dry skin R heel, blanchable red heels. Coccyx stage 1 pressure injury. R back/flank scattered red areas with some dried blisters and a broken dry blister on his lower anterior
chest. R hand, R forearm skin tears. Small scabbed abrasions L leg and L thigh, L elbow/forearm.'
-noted on right upper back and right posterior gluteal region
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
- counselled to follow-up outpatient
#Essential hypertension
-Hold lisinopril
# Suspected Moderate protein calorie malnutrition
- per nutrition consult, reported weight loss and nutrition focused physical assessment point towards moderate protein calorie malnutrition
- mirtazapine 15mg PO
CODE STATUS DNR
Medical Power of [place] is with daughter, Esperanza
Important imaging findings :
Head CT 11/17/2024:
IMPRESSION:
Stable appearance of CT of the head.
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
Decreased density and volume loss within both temporal lobes, fairly symmetric, stable. Exact etiology for these areas of volume loss is uncertain, and could possibly be encephalomalacia from previous traumatic injury.
CXR 11/17/2024
IMPRESSION:
No evidence of active cardiopulmonary disease.
Vascular Ultrasound of extracranial arteries 11/20/2024
IMPRESSION:
RIGHT. Soft plaque is identified in the common carotid artery. Mixed plaque is identified in the carotid bulb and internal carotid artery. Carotid velocity measurements are consistent with less than 50% internal carotid artery stenosis. Vertebral
artery flow is antegrade.
LEFT: Soft plaque is identified in the common carotid artery. Mixed plaque is identified in the carotid bulb. Plaque is identified in the internal carotid artery. Carotid velocity measurements are consistent with less than 50% internal carotid
artery stenosis. Vertebral artery flow is antegrade.
Procedure findings :
EKG 11/17/2024 10:36
SINUS RHYTHM WITH OCCASIONAL PREMATURE VENTRICULAR COMPLEXES
LEFT ANTERIOR FASCICULAR BLOCK
CANNOT RULE OUT INFERIOR INFARCT (MASKED BY FASCICULAR BLOCK?) , AGE
UNDETERMINED
ABNORMAL ECG
WHEN COMPARED WITH ECG OF 12-Nov-2024 16:15,
NO SIGNIFICANT CHANGE WAS FOUND
Echocardiogram 11/20/2024
SUMMARY
1. Normal left ventricular size, wall thickness and systolic function. No regional wall motion abnormalities are seen.
2. No significant valve disease.
3. No prior study available for comparison.
EKG 11/26/2024 12:31
NORMAL SINUS RHYTHM
LEFT AXIS DEVIATION
PULMONARY DISEASE PATTERN
INFERIOR INFARCT (CITED ON OR BEFORE 17-Nov-2024)
ABNORMAL ECG
WHEN COMPARED WITH ECG OF 17-Nov-2024 10:46,
PREMATURE VENTRICULAR COMPLEXES ARE NO LONGER PRESENT
EKG 11/29/2024 11:59
SINUS TACHYCARDIA WITH OCCASIONAL PREMATURE VENTRICULAR COMPLEXES
LEFT ANTERIOR FASCICULAR BLOCK
CANNOT RULE OUT INFERIOR INFARCT (CITED ON OR BEFORE 17-Nov-2024)
ABNORMAL ECG
WHEN COMPARED WITH ECG OF 26-Nov-2024 13:08,
PREMATURE VENTRICULAR COMPLEXES ARE NOW PRESENT
Discharge Plan
-
Patient Disposition: Usp/SNF
Discharge Diagnosis/Procedures: Syncopal episodes with recurrent hypotension, Urinary Retention, Alzheimer's dementia with behavioral disturbance
Condition: Fair
Diet: Chop all food
Activity: As tolerated
Driving Restrictions: No driving
Bathing Restrictions: None
Activity Restrictions/Additional Instructions:
Wound Care Instructions
open blisters-keep clean and dry, cover with non stick dressing (i.e. adaptic and gauze or Telfa secured with minimal silicone tape) prn drainage and change q 3 days and prn loosened dressing.
R arm and hand skin tears-clean with saline, apply silicone border foam, change q 3 days and prn loosened dressing (add adaptic prn adherent dressing).
Coccyx/stan skin-barrier ointment BID.
Heels-protective foam dressing, change q 3 days and prn loosened dressing.
Evaluate for an air mattress
turning schedule
elevate heels off bed; soft heel relief boots as tolerated (i.e. Foot Waffle boots).
Pressure redistributing chair cushion (i.e. Air chair cushion.
Make appointment with edge trimmer.
Referrals:
UNKNOWN - PT DOES,NOT KNOW [Family Provider]
Additional Discharge Medication Instructions: Please take doxycycline 100mg twice a day for 5 days
Please take midodrine 2.5mg twice a day
Please take mirtazapine 15mg daily at night
Please take tamsulosin 0.4mg daily
You can take clotrimazole, hydrocortisone, hydroxyzine as needed
Please continue your quetiapine and eye drops
Please hold lisinopril until you speak with family doctor.
Please stop taking cefdinir.
You should follow-up with your PCP within 1-2 weeks. Please follow-up with dermatology for the rash.
Prescriptions:
New
tamsulosin 0.4 mg Capsule
0.4 mg PO DAILY Qty: 30 0RF
hydroxyzine HCl 10 mg Tablet
10 mg PO QIDPRN PRN (Reason: scratch or itching) Qty: 28 0RF
doxycycline hyclate 100 mg Capsule
100 mg PO Q12 Qty: 10 0RF
midodrine 2.5 mg Tablet
2.5 mg PO BID@0800,1800 Qty: 60 0RF
mirtazapine 15 mg Tablet
15 mg PO HS Qty: 30 0RF
clotrimazole 1 % cream
1 applic topical BID Qty: 15 0RF
hydrocortisone [Aquanil HC] 1 % Lotion
1 applic topical BID Qty: 120 0RF
Continued
quetiapine [Seroquel] 50 mg Tablet
75 mg PO BID@1200,2100
timolol maleate 0.5 % Drops
1 drp RIGHT EYE DAILY
quetiapine 50 mg tablet
50 mg PO DAILY
Held
lisinopril 10 mg tablet
10 mg PO DAILY
Hold Instructions: Resume on 12/21/24. Please discuss with family doctor before restarting
Discontinued
cefdinir 300 mg capsule
300 mg PO BID Qty: 6 0RF
Discharge Orders:
Discharge Patient (As Directed); Ordered 11/30/24
Ordered By: Frank Sanabria
Discharge Date and Time
Discharge Date/Time: 11/30/24 18:57
Print Language: LITHUANIAN

Documented by User: Po Morrison MD 11/30/24 21:44
Discharge Summary
Discharge Data
Date of Admission: 11/17/24
Date of Discharge: 11/30/24
Discharge Plan
-
Patient Disposition: [facility]/SNF
Discharge Diagnosis/Procedures: Syncopal episodes with recurrent hypotension, Urinary Retention, Alzheimer's dementia with behavioral disturbance
Condition: Fair
Diet: Chop all food
Activity: As tolerated
Driving Restrictions: No driving
Bathing Restrictions: None
Activity Restrictions/Additional Instructions:
Wound Care Instructions
open blisters-keep clean and dry, cover with non stick dressing (i.e. adaptic and gauze or Telfa secured with minimal silicone tape) prn drainage and change q 3 days and prn loosened dressing.
R arm and hand skin tears-clean with saline, apply silicone border foam, change q 3 days and prn loosened dressing (add adaptic prn adherent dressing).
Coccyx/stan skin-barrier ointment BID.
Heels-protective foam dressing, change q 3 days and prn loosened dressing.
Evaluate for an air mattress
turning schedule
elevate heels off bed; soft heel relief boots as tolerated (i.e. Foot Waffle boots).
Pressure redistributing chair cushion (i.e. Air chair cushion.
Make appointment with edge trimmer.
Referrals:
UNKNOWN - PT DOES,NOT KNOW [Family Provider]
Additional Discharge Medication Instructions: Please take doxycycline 100mg twice a day for 5 days
Please take midodrine 2.5mg twice a day
Please take mirtazapine 15mg daily at night
Please take tamsulosin 0.4mg daily
You can take clotrimazole, hydrocortisone, hydroxyzine as needed
Please continue your quetiapine and eye drops
Please hold lisinopril until you speak with family doctor.
Please stop taking cefdinir.
You should follow-up with your PCP within 1-2 weeks. Please follow-up with dermatology for the rash.
Prescriptions:
New
tamsulosin 0.4 mg Capsule
0.4 mg PO DAILY Qty: 30 0RF
hydroxyzine HCl 10 mg Tablet
10 mg PO QIDPRN PRN (Reason: scratch or itching) Qty: 28 0RF
doxycycline hyclate 100 mg Capsule
100 mg PO Q12 Qty: 10 0RF
midodrine 2.5 mg Tablet
2.5 mg PO BID@0800,1800 Qty: 60 0RF
mirtazapine 15 mg Tablet
15 mg PO HS Qty: 30 0RF
clotrimazole 1 % cream
1 applic topical BID Qty: 15 0RF
hydrocortisone [Aquanil HC] 1 % Lotion
1 applic topical BID Qty: 120 0RF
Continued
quetiapine [Seroquel] 50 mg Tablet
75 mg PO BID@1200,2100
timolol maleate 0.5 % Drops
1 drp RIGHT EYE DAILY
quetiapine 50 mg tablet
50 mg PO DAILY
Held
lisinopril 10 mg tablet
10 mg PO DAILY
Hold Instructions: Resume on 12/21/24. Please discuss with family doctor before restarting
Discontinued
cefdinir 300 mg capsule
300 mg PO BID Qty: 6 0RF
Discharge Orders:
Discharge Patient (As Directed); Ordered 11/30/24
Ordered By: Frank Sanabria
Discharge Date and Time
Discharge Date/Time: 11/30/24 18:57
Print Language: LITHUANIAN
== END 2024-11-30 18:57 | DRG 57 ==
LOC: 2 NORTH 16:04
PROVIDERS: Nurse Practitioner; Student in an Organized Health Care Education/Training Program; ADMITTING PHYSICIAN Hospitalist; ATTENDING PHYSICIAN Family Medicine; CONSULT PHYSICIAN Internal Medicine Cardiovascular Disease; CONSULT PHYSICIAN Internal Medicine Infectious Disease; EMERGENCY PHYSICIAN Emergency Medicine
DX: G30.9 Alzheimer's disease, unspecified (principal); F02.84 Dementia in other diseases classified elsewhere, unspecified severity, with anxiety; F02.818 Dementia in other diseases classified elsewhere, unspecified severity, with other behavioral disturbance; E44.0 Moderate protein-calorie malnutrition; I65.23 Occlusion and stenosis of bilateral carotid arteries; I10 Essential (primary) hypertension; Z87.820 Personal history of traumatic brain injury; I49.3 Ventricular premature depolarization; L89.151 Pressure ulcer of sacral region, stage 1; Z66 Do not resuscitate; I44.4 Left anterior fascicular block; Z87.891 Personal history of nicotine dependence; Z88.0 Allergy status to penicillin; Z88.1 Allergy status to other antibiotic agents; R68.0 Hypothermia, not associated with low environmental temperature
CPT/HCPCS: 51701; 70450; 71046; 80048; 80053; 81003; 81015; 82533; 82962; 83735; 84443; 84484; 85025; 85027; 87070; 87086; 87205; 92526; 92610; 93005; 93306; 93880; 96360; 97116; 97163; 97167; 97530; 97535; 99285